=== PATIENT | male | born 1950 | race Two or more races ===

== ENCOUNTER 2016-09-21 08:10 | Outpatient (CLI) | payer MEDICARE, OTHER ==
[~2016-09-21 08:10] MED LIST: ACET650T10 PO; AMLO10TA2 PO; ASPI-605 PO; BLOO-129 IN; BRIM5DRO2 OP; HYDR-548 PO; HYDR25TA4 PO; INSU100C7 SQ; LISI-603 PO; METF10002 PO; SIMV20TA6 PO
== END 2016-09-21 23:59 | disposition home or self-care (01) ==
LOC: WOU 08:10
PROVIDERS: ATTEND Podiatrist Foot & Ankle Surgery
DX: E11.621 Type 2 diabetes mellitus with foot ulcer (principal); L97.523 Non-pressure chronic ulcer of other part of left foot with necrosis of muscle; E11.42 Type 2 diabetes mellitus with diabetic polyneuropathy; Z89.411 Acquired absence of right great toe; M20.5X1 Other deformities of toe(s) (acquired), right foot; M20.5X2 Other deformities of toe(s) (acquired), left foot; F17.200 Nicotine dependence, unspecified, uncomplicated; L03.032 Cellulitis of left toe
CPT/HCPCS: 11043; 73630; 87070; 87077; 87186; A6402 ×2; A6407

== ENCOUNTER 2016-09-22 08:58 | Outpatient (CLI) | payer MEDICARE, OTHER | END 2016-09-22 23:59 | disposition home or self-care (01) | LOC: WOU 08:58 | PROVIDERS: ATTEND Podiatrist Foot & Ankle Surgery | DX: E11.621 Type 2 diabetes mellitus with foot ulcer (principal); L97.523 Non-pressure chronic ulcer of other part of left foot with necrosis of muscle; E11.42 Type 2 diabetes mellitus with diabetic polyneuropathy; Z89.411 Acquired absence of right great toe; M20.5X1 Other deformities of toe(s) (acquired), right foot; M20.5X2 Other deformities of toe(s) (acquired), left foot; L03.032 Cellulitis of left toe | CPT/HCPCS: 11043; A6253; A6402; A6407 ==

== ENCOUNTER 2016-09-25 08:45 | Outpatient (CLI) | payer MEDICARE, OTHER | END 2016-09-25 23:59 | disposition home or self-care (01) | LOC: WOU 08:45 | PROVIDERS: ATTEND Podiatrist Foot & Ankle Surgery | DX: E11.621 Type 2 diabetes mellitus with foot ulcer (principal); L97.523 Non-pressure chronic ulcer of other part of left foot with necrosis of muscle; Z89.411 Acquired absence of right great toe; E11.42 Type 2 diabetes mellitus with diabetic polyneuropathy; F17.200 Nicotine dependence, unspecified, uncomplicated; L03.032 Cellulitis of left toe; M20.5X1 Other deformities of toe(s) (acquired), right foot; M20.5X2 Other deformities of toe(s) (acquired), left foot; Z91.19 Patient's noncompliance with other medical treatment and regimen | CPT/HCPCS: 11042; A6253; A6402; A6407 ==

== ENCOUNTER 2016-09-28 08:10 | Outpatient (CLI) | payer MEDICARE, OTHER | END 2016-09-28 23:59 | disposition home or self-care (01) | LOC: WOU 08:10 | PROVIDERS: ATTEND Podiatrist Foot & Ankle Surgery | DX: E11.621 Type 2 diabetes mellitus with foot ulcer (principal); L97.523 Non-pressure chronic ulcer of other part of left foot with necrosis of muscle; Z89.411 Acquired absence of right great toe; Z91.19 Patient's noncompliance with other medical treatment and regimen; F17.200 Nicotine dependence, unspecified, uncomplicated; L03.032 Cellulitis of left toe; M20.5X2 Other deformities of toe(s) (acquired), left foot; E11.42 Type 2 diabetes mellitus with diabetic polyneuropathy; Z79.4 Long term (current) use of insulin; Z79.84 Long term (current) use of oral hypoglycemic drugs | CPT/HCPCS: 11043; A6253; A6402 ×2; A6407 ==

== ENCOUNTER 2016-10-02 08:45 | Outpatient (CLI) | payer MEDICARE, OTHER | END 2016-10-02 23:59 | disposition home or self-care (01) | LOC: WOU 08:45 | PROVIDERS: ATTEND Podiatrist Foot & Ankle Surgery | DX: E11.621 Type 2 diabetes mellitus with foot ulcer (principal); L97.523 Non-pressure chronic ulcer of other part of left foot with necrosis of muscle; E11.42 Type 2 diabetes mellitus with diabetic polyneuropathy; Z89.411 Acquired absence of right great toe; L03.032 Cellulitis of left toe | CPT/HCPCS: 11042; 11043; A6253; A6402; A6407 ==

== ENCOUNTER 2016-10-05 08:34 | Outpatient (CLI) | payer MEDICARE, OTHER | END 2016-10-05 23:59 | disposition home or self-care (01) | LOC: WOU 08:34 | PROVIDERS: ATTEND Podiatrist Foot & Ankle Surgery | DX: E11.621 Type 2 diabetes mellitus with foot ulcer (principal); L97.523 Non-pressure chronic ulcer of other part of left foot with necrosis of muscle; E11.42 Type 2 diabetes mellitus with diabetic polyneuropathy; F17.200 Nicotine dependence, unspecified, uncomplicated; Z89.411 Acquired absence of right great toe; M20.5X2 Other deformities of toe(s) (acquired), left foot; L03.032 Cellulitis of left toe; Z79.84 Long term (current) use of oral hypoglycemic drugs; Z79.4 Long term (current) use of insulin; Z79.899 Other long term (current) drug therapy | CPT/HCPCS: 11042; A6253; A6402 ×2; A6407 ==

== ENCOUNTER 2016-10-09 08:30 | Outpatient (CLI) | payer MEDICARE, OTHER | END 2016-10-09 23:59 | disposition home or self-care (01) | LOC: WOU 08:30 | PROVIDERS: ATTEND Podiatrist Foot & Ankle Surgery | DX: E11.621 Type 2 diabetes mellitus with foot ulcer (principal); L97.523 Non-pressure chronic ulcer of other part of left foot with necrosis of muscle; E11.42 Type 2 diabetes mellitus with diabetic polyneuropathy; F17.200 Nicotine dependence, unspecified, uncomplicated; Z79.84 Long term (current) use of oral hypoglycemic drugs; Z91.19 Patient's noncompliance with other medical treatment and regimen | CPT/HCPCS: 15275; A6402; Q4131 ==

== ENCOUNTER 2016-10-12 08:59 | Outpatient (CLI) | payer MEDICARE, OTHER | END 2016-10-12 23:59 | disposition home or self-care (01) | DX: E11.621 Type 2 diabetes mellitus with foot ulcer (principal); L97.523 Non-pressure chronic ulcer of other part of left foot with necrosis of muscle; Z89.411 Acquired absence of right great toe; E11.42 Type 2 diabetes mellitus with diabetic polyneuropathy; M20.5X2 Other deformities of toe(s) (acquired), left foot; L03.032 Cellulitis of left toe; Z79.84 Long term (current) use of oral hypoglycemic drugs | CPT/HCPCS: A6402; G0463 ==

== ENCOUNTER 2016-10-16 08:29 | Outpatient (CLI) | payer MEDICARE, OTHER | END 2016-10-16 23:59 | disposition home or self-care (01) | LOC: WOU 08:29 | PROVIDERS: ATTEND Podiatrist Foot & Ankle Surgery | DX: E11.621 Type 2 diabetes mellitus with foot ulcer (principal); L97.522 Non-pressure chronic ulcer of other part of left foot with fat layer exposed; E11.42 Type 2 diabetes mellitus with diabetic polyneuropathy; F17.210 Nicotine dependence, cigarettes, uncomplicated; Z89.411 Acquired absence of right great toe; M20.5X2 Other deformities of toe(s) (acquired), left foot; Z91.19 Patient's noncompliance with other medical treatment and regimen; Z79.4 Long term (current) use of insulin; Z79.84 Long term (current) use of oral hypoglycemic drugs | CPT/HCPCS: 15275; A6402; Q4131 ==

== ENCOUNTER 2016-10-23 09:00 | Outpatient (CLI) | payer MEDICARE, OTHER | END 2016-10-23 23:59 | disposition home or self-care (01) | LOC: WOU 09:00 | PROVIDERS: ATTEND Podiatrist Foot & Ankle Surgery | DX: E11.621 Type 2 diabetes mellitus with foot ulcer (principal); L97.522 Non-pressure chronic ulcer of other part of left foot with fat layer exposed; Z89.411 Acquired absence of right great toe; L03.032 Cellulitis of left toe; Z91.19 Patient's noncompliance with other medical treatment and regimen; R60.0 Localized edema; F17.200 Nicotine dependence, unspecified, uncomplicated | CPT/HCPCS: 11042; A6402 ×2 ==

== ENCOUNTER 2016-10-26 08:10 | Outpatient (CLI) | payer MEDICARE, OTHER | END 2016-10-26 23:59 | disposition home or self-care (01) | LOC: WOU 08:10 | PROVIDERS: ATTEND Podiatrist Foot & Ankle Surgery | DX: E11.621 Type 2 diabetes mellitus with foot ulcer (principal); L97.523 Non-pressure chronic ulcer of other part of left foot with necrosis of muscle; R23.8 Other skin changes; L03.032 Cellulitis of left toe; M20.5X2 Other deformities of toe(s) (acquired), left foot; Z89.411 Acquired absence of right great toe; E11.42 Type 2 diabetes mellitus with diabetic polyneuropathy; F17.200 Nicotine dependence, unspecified, uncomplicated; Z91.19 Patient's noncompliance with other medical treatment and regimen | CPT/HCPCS: 10140; 11043; 87070-TC; 87075-TC; A6253; A6402; A6407 ==

== ENCOUNTER 2016-10-28 23:03 | Inpatient (IN) | payer MEDICARE, OTHER ==
[~2016-10-28] VITALS: Ht 157.5 cm; Wt 82.6 kg
--- NOTE | 2016-10-28 23:30 | NUR ---
[facility] FAMILY. PT AMBULATORY TO ER BED 6 C/O REDNESS & SWELLING LT FOOT WOUND SINCE 10/26/16. SEEN BY HIS ADVERTISING TRAFFIC MANAGER DR. BLACK 10/26/16, BUT DECLINED INPT ADMISSION. PT AOX3 PORTUGUESE SPEAKING. SON AT BEDSIDE TO TRANSLATE. RR EVEN AND UNLABORED. NO SOB NOTED. NAD NOTED. NO NVD AT THIS TIME. PT GOWNED AND PLACED ON MONTIOR. DR. CHEN AT BEDSIDE FOR EVAL.
--- NOTE | 2016-10-28 23:46 | NUR ---
XRAY AT BEDSIDE
[2016-10-29] MEDS ORDERED: VANCOMYCIN 1 GM in IV D5W 250 ML IV ONE ×2
[2016-10-29] MEDS ORDERED: PIPERACILLIN /TAZOBACTAM 3.375 G in IV D5W 50 ML IV ONE ×2
[2016-10-29] MEDS ORDERED: IV NS 0.9% 1,000 ML BAG IV ONE
[2016-10-29] MEDS ORDERED: IV SET PRIMARY 1 EA INFUS.SET MC ONE (00:25)
[2016-10-29] MEDS ORDERED: IV NS 0.9% 1,000 ML ONE (00:25)
[2016-10-29] MEDS ORDERED: PIPERACILLIN /TAZOBACTAM 3.375 G VIAL IV ONE ×2 (00:28→03:38)
[2016-10-29] MEDS ORDERED: IV SET PRIMARY PUMP SET 1 EA INFUS.SET MC ONE ×2 (00:28→01:03)
[2016-10-29] MEDS ORDERED: IV D5W 50 ML IV ONE ×2 (00:28→03:39)
--- NOTE | 2016-10-29 00:30 | NUR ---
URINE COLLECTED. CALLED LAB FOR SPORTS PHYSICAL THERAPIST.
[2016-10-29 00:36] LABS: ABG BASE EXCESS 0.2 mmol/L; ABG OXYGEN SATURATION 97.1 % (92.0-98.5); ABG PCO2 34.4 mmHg (35.0-45.0); ABG PH 7.457 (7.350-7.450); ABG PO2 95.1 mmHg (75.0-100.0); ABG TOTAL HEMOGLOBIN 11.1 G/dL (13.5-18.0); COHb 2.5 % (0.5-1.5); O2Hb 94.7 % (94.0-97.0); VENT MODE, BG VENOUS
[2016-10-29 00:46] LABS: BASOPHILS # (AUTO) 0.1 /CMM (0.0-0.2); BASOPHILS % (AUTO) 0.3 % (0.0-2.0); EOSINOPHILS # (AUTO) 0.3 /CMM (0.0-0.7); EOSINOPHILS % (AUTO) 1.8 % (0.0-6.0); HEMATOCRIT 31 % (39-51); LYMPHOCYTES # (AUTO) 1.5 /CMM (0.8-4.8); LYMPHOCYTES % (AUTO) 10.2 % (20.0-44.0); MEAN CORPUSCULAR HEMOGLOBIN 26 PG (26.0-33.0); MEAN CORPUSCULAR HGB CONC 33 g/dl (31.0-36.0); MEAN CORPUSCULAR VOLUME 81 fL (80-96); MONOCYTES # (AUTO) 1.2 /CMM (0.1-1.30); MONOCYTES % (AUTO) 8.2 % (2.0-12.0); NEUTROPHILS # (AUTO) 11.8 /CMM (1.8-8.9); NEUTROPHILS % (AUTO) 79.5 % (43.0-81.0); PLATELET COUNT (AUTO) 774 /CMM (150-450); RDW COEFFICIENT OF VARIATION 13.9 (11.5-15.0); WHITE BLOOD COUNT (AUTO) 14.9 K/uL (4.3-11.0)
[2016-10-29 00:48] LABS: CALCIUM, SERUM 8.9 mg/dL (8.5-10.1); CREATININE 1.2 mg/dL (0.6-1.3); POTASSIUM 4.9 mmol/L (3.5-5.1)
[2016-10-29 00:51] LABS: INR 1.02 (0.87-1.13)
[2016-10-29] MEDS ORDERED: VANCOMYCIN 500 MG VIAL ONE (01:02)
[2016-10-29] MEDS ORDERED: IV D5W 250 ML IV ONE (01:03)
[2016-10-29 01:14] LABS: APPEARANCE,URINE CLEAR (CLEAR); BILIRUBIN,URINE NEGATIVE (NEGATIVE); BLOOD, URINE NEGATIVE Ery/uL (NEGATIVE); COLOR,URINE YELLOW (YELLOW); KETONES,URINE NEGATIVE (NEGATIVE); LEUKOCYTE ESTERASE ,URINE NEGATIVE (NEGATIVE); NITRITE, URINE NEGATIVE (NEGATIVE); PH,URINE 6.5 (5.0-8.0); PROTEIN,URINE 1+ mg/dl (NEGATIVE); UGLUCOSE TRACE mg/dL (NEGATIVE); UROBILINOGEN,URINE 0.2 EU/dL (0.2)
[2016-10-29 01:22] LABS: ADD URINE CULTURE NO; BACTERIA,URINE None seen /HPF (None Seen); RBC,URINE 0-2 /HPF (0-2); WBC,URINE 0-2 /HPF (0-3)
[2016-10-29 01:23] LABS: MUCUS,URINE Rare /LPF (None Seen); SQUAMOUS EPITHELIAL CELL,UR Rare /HPF (None Seen)
--- NOTE | 2016-10-29 01:31 | NUR ---
REPORT GIVEN TO [facility] FOR RNO.
--- NOTE | 2016-10-29 01:31 | NUR ---
RECEIVED REPORT FROM ER REGARDING POSSIBLE ADMISSION, 66 YEAR OLD MALE WITH LEFT FOOT WOUND. ROOM AVAILABLE, AWAITING ARRIVAL IN UNIT.
--- NOTE | 2016-10-29 03:08 | NUR ---
PT TRASNFERED VIA GURNEY TO MS BED 206-2
[2016-10-29 03:10] VITALS: BP 130/68
--- NOTE | 2016-10-29 03:10 | NUR ---
PATIENT ARRIVED IN UNIT WITH DX OF INFECTED LEFT FOOT WOUND. ALERT AND ORIENTED X4, SPEAKS ESTONIAN, UNDERSTANDS ALBANIAN, NO SOB, NO RESPIRATORY DISTRESS, ON ROOM AIR, 02 SAT 99%, LUNG SOUNDS ARE CLEAR IN ALL [place], ABDOMEN SOFT AND NON-TENDER, ACTIVE BOWEL SOUNDS, COMPLAINING OF HEADACHE OF 4/10. LEFT HAND WITH #20 GAUGE PERIPHERAL LINE IS PATENT, RECEIVED VANCOMYCIN AND ZOSYN IN ER. CONTINENT OF BOWEL AND BLADDER, ABLE TO AMBULATE TO THE TOILET, UNSTEADY GAIT, PER PATIENT ABLE TO WALK USING CANE. BROUGHT HOME CANE. LEFT FOOT HAS 2 INFECTED WOUNDS. CLEANSE WITH NS, PAT DRY, COVERED WITH DRY DRESSING AND SECURED WITH KERLIX. LEFT FOOT IS SWOLLEN. RIGHT FOOT IS DEFORMED WELL THE TOES. SKIN ASSESSMENT PERFORMED. ORIENTED TO USE OF CALL LIGHT. NEEDS ATTENDED, CALL LIGHT WITHIN REACH.
[2016-10-29] MEDS ORDERED: ZOLPIDEM TARTRATE 5 MG TABLET PO PRN (03:30)
[2016-10-29] MEDS ORDERED: MAGNESIUM HYDROXIDE 30 ML UDC PO PRN (03:30)
[2016-10-29] MEDS ORDERED: ONDANSETRON HCL/PF 4 MG/2 ML VIAL IVP PRN (03:30)
[2016-10-29] MEDS ORDERED: DEXTROSE 50%-WATER 50 ML DISP.SYRIN IV PRN (03:30)
[2016-10-29] MEDS ORDERED: ENOXAPARIN SODIUM 40 MG/0.4 ML DISP.SYRIN SQ SCH (03:30)
[2016-10-29] MEDS ORDERED: HYDROCODONE/APAP 5/325MG 1 EACH TABLET PO PRN (03:30)
[2016-10-29] MEDS ORDERED: ENOXAPARIN SODIUM 40 MG/0.4 ML DISP.SYRIN SQ ONE (03:38)
[2016-10-29] MEDS ORDERED: SECONDARY IV SET 1 EA INFUS.SET MC ONE (03:39)
[2016-10-29] MEDS ORDERED: IV NS 0.9% 250 ML IV ONE (03:40)
[2016-10-29] MEDS ORDERED: ACETAMINOPHEN 325 MG TABLET ONE (03:45)
[2016-10-29 03:46] VITALS: BP 130/68
[2016-10-29] MEDS: ACETAMINOPHEN 325 MG TABLET PO PRN ×2 (03:48→12:28)
[2016-10-29] MEDS: PIPERACILLIN /TAZOBACTAM 3.375 G in IV D5W 50 ML IV SCH ×4 (05:26→23:56)
[2016-10-29] MEDS: BLOOD SUGAR DIAGNOSTIC 1 EACH STRIP IN SCH ×4 (06:44→22:16)
[2016-10-29] MEDS: INSULIN REGULAR, HUMAN 100 UNIT/ML 3 ML VIAL SQ PRN ×2 (06:49→12:08)
--- NOTE | 2016-10-29 06:56 | NUR ---
PATIENT IN BED, ALERT AND AWAKE, NO SOB, NO DISTRESS, VERBALIZED RELIEF FROM HEADACHE, COMPLIANT WITH MEDICATION AND ACCUCHECK, NEEDS ATTENDED, CALL LIGHT WITHIN REACH.
--- NOTE | 2016-10-29 07:30 | NUR ---
MS/RN Patient received Patient received from night shift supervisor. Denies pain, dressing to left foor remains dry and intact. Aware of how to use call light. Will continue to monitor.
[2016-10-29 07:50] VITALS: BP 134/98
[2016-10-29] MEDS: LISINOPRIL (20MG) 20 MG TABLET PO SCH (08:14)
[2016-10-29] MEDS: PANTOPRAZOLE 40 MG TABLET.DR PO SCH (08:14)
[2016-10-29] MEDS: ASPIRIN EC 81 MG TABLET.DR PO SCH (08:14)
[2016-10-29] MEDS: AMLODIPINE BESYLATE 10 MG TABLET PO SCH (08:14)
[2016-10-29] MEDS: HYDROCHLOROTHIAZIDE 25 MG TABLET PO SCH (08:15)
[2016-10-29] MEDS ORDERED: FEE PK DOSING 1 MIN EA MC ONE (08:29)
[2016-10-29] MEDS: METFORMIN 500 MG TABLET PO SCH ×2 (09:14→17:52)
--- NOTE | 2016-10-29 09:31 | NUR ---
MS/caser in Morning medication administered as per order.
[2016-10-29] MEDS: VANCOMYCIN 1 GM in IV D5W 250 ML IV SCH (12:06)
--- NOTE | 2016-10-29 14:00 | NUR ---
MS/RN S/B Isa Malcolm INSURANCE SALES PRODUCER Dressing changes ordered and carried out. MRI of left foot ordered stat, patient also to be consented for left foot debridement and possilbe partial amputation.
--- NOTE | 2016-10-29 14:30 | NUR ---
MS/RN Consents Consent forms signed although patient is only consenting to debridement not amputation. Isa made aware.
--- NOTE | 2016-10-29 14:41 | NUR ---
TEXTED DR. WADE FOR MRI APPROVAL.
--- NOTE | 2016-10-29 14:42 | NUR ---
MRI APPROVED. TECH WILL BE IN [place].PLEASE DO THE MRI CHECKLIST
[2016-10-29 16:00] VITALS: BP 107/70
--- NOTE | 2016-10-29 16:01 | NUR ---
MS/RN MRI Patient taken to MRI, check list handed to [employer].
[2016-10-29] MEDS: DAKINS QUARTER STRENGTH (0.125%) 480 ML BOTTLE TOP SCH (17:52)
--- NOTE | 2016-10-29 18:03 | NUR ---
MS/RN End note Blood sugar at 1700 - 112, no coverage needed per sliding scale. All IVAB given as ordered. Awaiting results of MRI, no needs at this time, will continue to monitor.
[2016-10-29 20:00] VITALS: BP 106/50
--- NOTE | 2016-10-29 20:00 | NUR ---
MS RN NOTE: PATIENT RESTING IN BED, NO ACUTE DISTRESS NOTED. BREATHING EVEN AND UNLABORED, NO SOB NOTED. HL TO LEFT HAND IN PLACE. DRESSING TO LEFT FOOT CLEAN AND IN PLACE. PATIENT DENIES S/S OF HYPER/HYPOGLYCEMIA. BED LOCKED AND IN LOWEST POSITION, CALL LIGHT IN REACH. WILL CONTINUE TO MONITOR.
[2016-10-29] MEDS: SIMVASTATIN 20 MG TABLET PO SCH (22:16)
--- NOTE | 2016-10-29 22:30 | NUR ---
MS RN NOTE: PATIENT BLOOD SUGAR LEVEL 138 MG/DL, PATIENT TO RECEIVE 2 UNITS OF INSULIN PER SLIDING SCALE. NO S/S OF HYPER/HYPOGLYCEMIA NOTED. SNACKS PROVIDED. WILL CONTINUE TO MONITOR.
[2016-10-29] MEDS: *INSULIN REGULAR(HUMULIN R)HUM 100 UNIT/ML VIAL SQ PRN (22:59)
--- NOTE | 2016-10-30 00:15 | NUR ---
MS RN NOTE: PATIENT NPO FOR SURGERY IN MORNING. INFORMED PATIENT THAT HE CAN NOT EAT OR DRINK SINCE HE IS SCHEDULED FOR SURGERY IN MORNING. WATER PITCHER REMOVED FROM BEDSIDE. WILL CONTINUE TO MONITOR.
[2016-10-30] MEDS: VANCOMYCIN 1 GM in IV D5W 250 ML IV SCH ×2 (02:06→14:36)
[2016-10-30] MEDS: PIPERACILLIN /TAZOBACTAM 3.375 G in IV D5W 50 ML IV SCH ×4 (06:03→23:59)
--- NOTE | 2016-10-30 06:30 | NUR ---
MS RN NOTE: PATIENT RESTING IN BED, NO ACUTE DISTRESS NOTED. BREATHING EVEN AND UNLABORED, NO SOB NOTED. HL TO LEFT HAND IN PLACE. DRESSING TO LEFT FOOT CLEAN AND IN PLACE. PATIENT BLOOD SUGAR LEVEL 212 MG/DL, NO INSULIN GIVEN SINCE PATIENT IS NPO FOR SURGERY AT 1000. PATIENT DENIES S/S OF HYPER/HYPOGLYCEMIA. BED LOCKED AND IN LOWEST POSITION, CALL LIGHT IN REACH. WILL ENDORSE TO DAY NURSE TO CONTINUE WITH PLAN OF CARE.
[2016-10-30] MEDS: BLOOD SUGAR DIAGNOSTIC 1 EACH STRIP IN SCH ×4 (06:57→22:11)
[2016-10-30 07:00] LABS: BASOPHILS # (AUTO) 0.1 /CMM (0.0-0.2); BASOPHILS % (AUTO) 0.6 % (0.0-2.0); EOSINOPHILS # (AUTO) 0.4 /CMM (0.0-0.7); EOSINOPHILS % (AUTO) 3.3 % (0.0-6.0); HEMATOCRIT 33 % (39-51); HEMOGLOBIN 10.9 g/dL (13.5-17.5); LYMPHOCYTES % (AUTO) 9.1 % (20.0-44.0); MEAN CORPUSCULAR HEMOGLOBIN 27 PG (26.0-33.0); MEAN CORPUSCULAR HGB CONC 33 g/dl (31.0-36.0); MEAN CORPUSCULAR VOLUME 82 fL (80-96); MONOCYTES # (AUTO) 0.7 /CMM (0.1-1.30); NEUTROPHILS # (AUTO) 9.2 /CMM (1.8-8.9); PLATELET COUNT (AUTO) 840 /CMM (150-450); RDW COEFFICIENT OF VARIATION 14.1 (11.5-15.0); RED BLOOD CELL COUNT(AUTO) 3.98 MIL/uL (4.5-6.0); WHITE BLOOD COUNT (AUTO) 11.3 K/uL (4.3-11.0)
[2016-10-30 07:16] LABS: CALCIUM, SERUM 9.6 mg/dL (8.5-10.1); CREATININE 1.3 mg/dL (0.6-1.3); MAGNESIUM 1.8 mg/dL (1.8-2.4); PHOSPHORUS 3.7 mg/dL (2.5-4.9); POTASSIUM 5.3 mmol/L (3.5-5.1)
[2016-10-30] MEDS: PANTOPRAZOLE 40 MG TABLET.DR PO SCH (07:30)
[2016-10-30 08:00] VITALS: BP 106/67
--- NOTE | 2016-10-30 08:50 | NUR ---
WOUND CARE CONSULT: PATIENT SEEN AND SKIN ASSESSMENT DONE. PATIENT ALERT, ORIENTED, AMBULATORY, INDEPENDENT WITH BED MOBILITY, CONTINENT, JIMY 18. SEE TODAY'S SKIN ASSESSMENT IN PCS ALONG WITH RECOMMENDATIONS. PATIENT SEEN BY KENNEDI CHAIREZ NP UNDER DR. BLACK/TEMO VALENTIN, SCHEDULED FOR SURGERY TODAY. ALL RECOMMENDATIONS DISCUSSED WITH NURSING STAFF. MD IN AGREEMENT WITH PLAN OF CARE. Addendum: 10/30/16 at 0853 by RIMA MUNOZ WNDNU Amended: Links added.
[2016-10-30] MEDS ORDERED: BUPIVACAINE MPF 0.5% W/EPI INJ 30 ML VIAL ONE (08:59)
[2016-10-30] MEDS ORDERED: LIDOCAINE HCL/PF 1% 30 ML SDV ONE (08:59)
[2016-10-30] MEDS: ENOXAPARIN SODIUM 40 MG/0.4 ML DISP.SYRIN SQ SCH (09:00)
[2016-10-30] MEDS: AMLODIPINE BESYLATE 10 MG TABLET PO SCH (09:00)
[2016-10-30] MEDS: HYDROCHLOROTHIAZIDE 25 MG TABLET PO SCH (09:00)
[2016-10-30] MEDS: METFORMIN 500 MG TABLET PO SCH ×2 (09:00→17:05)
[2016-10-30] MEDS: LISINOPRIL (20MG) 20 MG TABLET PO SCH (09:00)
[2016-10-30] MEDS: ASPIRIN EC 81 MG TABLET.DR PO SCH (09:00)
[2016-10-30] MEDS: DAKINS QUARTER STRENGTH (0.125%) 480 ML BOTTLE TOP SCH ×2 (09:00→17:14)
[2016-10-30] MEDS ORDERED: PANTOPRAZOLE 40 MG TABLET.DR PO SCH (11:00)
[2016-10-30] MEDS: INSULIN REGULAR, HUMAN 100 UNIT/ML 3 ML VIAL SQ PRN ×2 (13:05→17:08)
[2016-10-30] MEDS: ACETAMINOPHEN 325 MG TABLET PO PRN (14:41)
[2016-10-30 16:00] VITALS: BP 119/65
[2016-10-30] MEDS: LACTOBACILLUS RHAMNOSUS GG 1 EACH CAP.SPRINK PO SCH (17:05)
--- NOTE | 2016-10-30 19:20 | NUR ---
MS RN NOTE: PATIENT RESTING IN BED, NO ACUTE DISTRESS NOTED. BREATHING EVEN AND UNLABORED, NO SOB NOTED. HL TO LEFT HAND IN PLACE. DRESSING TO LEFT FOOT CLEAN AND IN PLACE. PATIENT DENIES S/S OF HYPER/HYPOGLYCEMIA. BED LOCKED AND IN LOWEST POSITION, CALL LIGHT IN REACH. ENDORSED TO NEXT SHIFT FOR CONTINUITY OF CARE
[2016-10-30] MEDS: SIMVASTATIN 20 MG TABLET PO SCH (22:11)
[2016-10-30] MEDS: *INSULIN REGULAR(HUMULIN R)HUM 100 UNIT/ML VIAL SQ PRN (22:19)
--- NOTE | 2016-10-30 22:30 | NUR ---
MS RN NOTE: PATIENT BLOOD SUGAR LEVEL 190 MG/DL, PATIENT TO RECEIVE 3 UNITS OF INSULIN PER SLIDING SCALE. NO S/S OF HYPER/HYPOGLYCEMIA NOTED. SNACKS PROVIDED. WILL CONTINUE TO MONITOR.
[2016-10-31] MEDS: VANCOMYCIN 1 GM in IV D5W 250 ML IV SCH ×2 (01:11→12:57)
[2016-10-31] MEDS: PIPERACILLIN /TAZOBACTAM 3.375 G in IV D5W 50 ML IV SCH ×3 (05:53→17:35)
--- NOTE | 2016-10-31 06:30 | NUR ---
MS RN NOTE: PATIENT RESTING IN BED, NO ACUTE DISTRESS NOTED. BREATHING EVEN AND UNLABORED, NO SOB NOTED. HL TO LEFT HAND IN PLACE. DRESSING TO LEFT FOOT CLEAN AND IN PLACE. PATIENT BLOOD SUGAR LEVEL 262 MG/DL, PATIENT TO RECEIVE 12 UNITS OF INSULIN PER SLIDING SCALE. PATIENT DENIES S/S OF HYPER/HYPOGLYCEMIA. BED LOCKED AND IN LOWEST POSITION, CALL LIGHT IN REACH. WILL ENDORSE TO DAY NURSE TO CONTINUE WITH PLAN OF CARE.
[2016-10-31] MEDS: BLOOD SUGAR DIAGNOSTIC 1 EACH STRIP IN SCH ×4 (06:37→22:00)
[2016-10-31] MEDS: INSULIN REGULAR, HUMAN 100 UNIT/ML 3 ML VIAL SQ PRN ×3 (06:38→17:17)
[2016-10-31 07:22] LABS: CREATININE 1.3 mg/dL (0.6-1.3); POTASSIUM 4.7 mmol/L (3.5-5.1)
[2016-10-31 08:00] VITALS: BP 112/58
[2016-10-31] MEDS: LACTOBACILLUS RHAMNOSUS GG 1 EACH CAP.SPRINK PO SCH ×2 (08:43→17:08)
[2016-10-31] MEDS: METFORMIN 500 MG TABLET PO SCH ×2 (08:44→17:09)
[2016-10-31] MEDS: PANTOPRAZOLE 40 MG TABLET.DR PO SCH (08:44)
[2016-10-31] MEDS: ASPIRIN EC 81 MG TABLET.DR PO SCH (08:44)
[2016-10-31] MEDS: AMLODIPINE BESYLATE 10 MG TABLET PO SCH (08:45)
[2016-10-31] MEDS: ENOXAPARIN SODIUM 40 MG/0.4 ML DISP.SYRIN SQ SCH (08:51)
[2016-10-31] MEDS: DAKINS QUARTER STRENGTH (0.125%) 480 ML BOTTLE TOP SCH ×2 (08:52→17:45)
[2016-10-31] MEDS: HYDROCHLOROTHIAZIDE 25 MG TABLET PO SCH (09:00)
[2016-10-31] MEDS: LISINOPRIL (20MG) 20 MG TABLET PO SCH (11:28)
[2016-10-31 16:00] VITALS: BP 114/62
[2016-10-31] MEDS ORDERED: SECONDARY IV SET 1 EA INFUS.SET MC ONE (17:34)
--- NOTE | 2016-10-31 19:50 | NUR ---
MSRN FULLY AWAKE, COOPERATIVE. NO NEEDS FOR NOW. FOOT DRESSING DRY AND INTACT. ELEVATED ON PILLOWS. KEPT COMFORTABLE TO CONTINUE
--- NOTE | 2016-10-31 19:56 | NUR ---
MS RN NOTE: PATIENT RESTING IN BED, NO ACUTE DISTRESS NOTED. BREATHING EVEN AND UNLABORED, NO SOB NOTED. HL RIGHT FA IN PLACE NO REDNESS OR INFILTRATION NOTED. DRESSING TO LEFT FOOT CLEAN AND IN PLACE. PATIENT DENIES S/S OF HYPER/HYPOGLYCEMIA. BED LOCKED AND IN LOWEST POSITION, CALL LIGHT IN REACH. ENDORSED TO NEXT SHIFT FOR CONTINUITY OF CARE
[2016-10-31 20:00] VITALS: BP 104/63
[2016-10-31] MEDS ORDERED: INSULIN DETEMIR 100 UNIT/ML CARTRIDGE SQ SCH (22:00)
--- NOTE | 2016-10-31 22:05 | NUR ---
MSRN BS WAS 264 COVERED WITH LEVEMIR AND REGULAR INSULIN S/S ORDERED. ATE SNACKS EARLIER.
[2016-10-31] MEDS: SIMVASTATIN 20 MG TABLET PO SCH (22:55)
[2016-10-31] MEDS: *INSULIN REGULAR(HUMULIN R)HUM 100 UNIT/ML VIAL SQ PRN (23:04)
--- NOTE | 2016-11-01 00:10 | NUR ---
MSRN UPSET, ROOM TOO COLD PATIENT STATED. OFFERED WARM BLANKET, REFUSED, OFFERED TO BE MOVED TO FIRST BED REFUSED. REFUSED TO ACCEPT ANY EXPLANATION, BECOMING UNCOOPERATIVE.
[2016-11-01] MEDS: PIPERACILLIN /TAZOBACTAM 3.375 G in IV D5W 50 ML IV SCH ×5 (00:22→23:51)
[2016-11-01] MEDS ORDERED: SECONDARY IV SET 1 EA INFUS.SET MC ONE (00:25)
--- NOTE | 2016-11-01 01:05 | NUR ---
MSRN INFORMED HOUSESUPERVISOR REGARDING PATIENTS' CONCERNS, OFFERED HEATER, PATIENT REFUSED. WANTED TO BE LEFT ALONE.
[2016-11-01] MEDS: VANCOMYCIN 1 GM in IV D5W 250 ML IV SCH ×2 (01:14→11:49)
[2016-11-01 07:10] LABS: CALCIUM, SERUM 8.9 mg/dL (8.5-10.1); CREATININE 1.3 mg/dL (0.6-1.3); POTASSIUM 4.7 mmol/L (3.5-5.1)
--- NOTE | 2016-11-01 07:23 | NUR ---
MSRN LABS DRAWN, NO NEEDS MADE.
[2016-11-01] MEDS: BLOOD SUGAR DIAGNOSTIC 1 EACH STRIP IN SCH ×4 (07:40→21:28)
[2016-11-01] MEDS: INSULIN REGULAR, HUMAN 100 UNIT/ML 3 ML VIAL SQ PRN ×2 (07:42→12:09)
--- NOTE | 2016-11-01 07:52 | NUR ---
MS/RN Patient received Patient received from manager shift, no needs at this time. Denies pain, dressing to left foot dry and intact. Call light within reach, will continue to monitor.
[2016-11-01] MEDS: PANTOPRAZOLE 40 MG TABLET.DR PO SCH (08:33)
[2016-11-01] MEDS: LACTOBACILLUS RHAMNOSUS GG 1 EACH CAP.SPRINK PO SCH ×2 (08:33→17:53)
[2016-11-01] MEDS: LISINOPRIL (20MG) 20 MG TABLET PO SCH (08:34)
[2016-11-01] MEDS: AMLODIPINE BESYLATE 10 MG TABLET PO SCH (08:34)
[2016-11-01] MEDS: METFORMIN 500 MG TABLET PO SCH ×2 (08:34→17:53)
[2016-11-01] MEDS: ASPIRIN EC 81 MG TABLET.DR PO SCH (08:34)
[2016-11-01] MEDS: HYDROCHLOROTHIAZIDE 25 MG TABLET PO SCH (08:34)
[2016-11-01 08:35] VITALS: BP 125/69
[2016-11-01] MEDS: DAKINS QUARTER STRENGTH (0.125%) 480 ML BOTTLE TOP SCH ×2 (08:35→17:00)
[2016-11-01] MEDS: ENOXAPARIN SODIUM 40 MG/0.4 ML DISP.SYRIN SQ SCH (08:39)
--- NOTE | 2016-11-01 09:00 | NUR ---
MS/patient accounting representative Morning medication administered as ordered.
--- NOTE | 2016-11-01 12:00 | NUR ---
MS/RN S/B Wound Seen by Isa Malcolm NP, will be seen by MD later today, for possible surgery tomorrow.
--- NOTE | 2016-11-01 12:29 | NUR ---
MS/RN Blood sugar Blood sugar at noon 254, insulin coverage given as per sliding scale.
[2016-11-01] MEDS ORDERED: ANESTHESIA TRAY IN PYXIS 1 EA TRAY MC ONE (14:40)
--- NOTE | 2016-11-01 14:49 | NUR ---
MS/RN Consent Consent obtained from patient for debridement of left foot wound tomorrow. Aware of need to be NPO from midnight, wound vac order placed and central supply called to inform. Will deliver to floor later today (per Anmol)
[2016-11-01] MEDS: *INSULIN REGULAR(HUMULIN R)HUM 100 UNIT/ML VIAL SQ PRN ×2 (18:00→21:35)
[2016-11-01 19:00] VITALS: BP 128/71
--- NOTE | 2016-11-01 19:30 | NUR ---
RN NOTE; RECEIVED PT IN BED AWAKE AND ALERT. BREATHING EVENLY. NO SOB. NO DISTRESS. SKIN WARM AND DRY. DRESSING ON L LEG CDI, NO C/O PAIN OR DISCOMFORT. NEEDS ATTENDED. BED LOW LOCKED. SRX2. CALL LIGHT WITHIN REACH. WILL CONT TO MONITOR
--- NOTE | 2016-11-01 19:57 | NUR ---
MS/RN End note Patient remains without any needs, no pain medication requested. IVAB infused as ordered, no reaction noted around heplock insertion site. Dressing to foot dry and intact. Consent forms in chart, all signed by patient. Call light within reach, will endorse to shift commander.
[2016-11-01 20:00] VITALS: BP 128/71
[2016-11-01] MEDS: SIMVASTATIN 20 MG TABLET PO SCH (21:28)
[2016-11-01] MEDS ORDERED: INSULIN DETEMIR 100 UNIT/ML CARTRIDGE SQ SCH (22:00)
[2016-11-02] VITALS (14 sets, daily range): BP systolic 120–136; BP diastolic 63–72
[2016-11-02] MEDS: VANCOMYCIN 1 GM in IV D5W 250 ML IV SCH ×2 (00:35→13:40)
[2016-11-02] MEDS: PIPERACILLIN /TAZOBACTAM 3.375 G in IV D5W 50 ML IV SCH ×3 (05:38→17:07)
--- NOTE | 2016-11-02 06:59 | NUR ---
RN NOTE; PT AWAKE AND ALERT. BREATHING EVENLY. NO SOB. NO C/O PAIN OR DISCOMFORT. OR STAFF AT THE BED SIDE TO PICK THE PT TO THE OR. WOUND VAC ALREADY DELIVERED TO THE OR. NEEDS ATTENDED. WILL ENDORSE TO AM SHIFT FOR RON,
[2016-11-02 07:01] LABS: CALCIUM, SERUM 8.9 mg/dL (8.5-10.1); CREATININE 1.1 mg/dL (0.6-1.3); POTASSIUM 4.5 mmol/L (3.5-5.1)
[2016-11-02] MEDS: BLOOD SUGAR DIAGNOSTIC 1 EACH STRIP IN SCH ×4 (07:03→21:27)
[2016-11-02] MEDS ORDERED: MIDAZOLAM HCL 2 MG/2ML VIAL ONE (07:19)
[2016-11-02] MEDS ORDERED: FENTANYL PF 100MCG/2ML AMPUL ONE (07:19)
[2016-11-02] MEDS: PANTOPRAZOLE 40 MG TABLET.DR PO SCH (07:30)
[2016-11-02] MEDS: DAKINS QUARTER STRENGTH (0.125%) 480 ML BOTTLE TOP SCH (09:00)
[2016-11-02] MEDS: ENOXAPARIN SODIUM 40 MG/0.4 ML DISP.SYRIN SQ SCH (09:00)
--- NOTE | 2016-11-02 09:00 | NUR ---
MS RN NOTES PATIENT RETURNED FROM OR IN STABLE CONDITION. ALERT, ORIENTED X3 NO SOB OR ACUTE DISTRESS NOTED. REPORTS NO PAIN. LOVENOX HELD DUE TO PATIENT BEING S/P . PATIENT WITH WOUND VAC PATENT INTACT AT 125. WILL CONTINUE TO MONITOR CLOSELY. IV INTACT PATENT.
[2016-11-02] MEDS: LACTOBACILLUS RHAMNOSUS GG 1 EACH CAP.SPRINK PO SCH ×2 (09:03→17:01)
[2016-11-02] MEDS: ASPIRIN EC 81 MG TABLET.DR PO SCH (09:03)
[2016-11-02] MEDS: LISINOPRIL (20MG) 20 MG TABLET PO SCH (09:04)
[2016-11-02] MEDS: HYDROCHLOROTHIAZIDE 25 MG TABLET PO SCH (09:04)
[2016-11-02] MEDS: METFORMIN 500 MG TABLET PO SCH ×2 (09:04→17:01)
[2016-11-02] MEDS: AMLODIPINE BESYLATE 10 MG TABLET PO SCH (09:04)
[2016-11-02] MEDS ORDERED: BUPIVACAINE 0.5 % PF 150 MG/30 ML VIAL ONE (09:35)
--- NOTE | 2016-11-02 12:00 | NUR ---
MS RN NOTES PATIENT SEEN AND EVALUATED BY ADRYAN MAYA ORDERS NOTED AND CARRIED OUT.
[2016-11-02] MEDS: INSULIN REGULAR, HUMAN 100 UNIT/ML 3 ML VIAL SQ PRN ×2 (12:01→17:09)
[2016-11-02] MEDS ORDERED: ANESTHESIA TRAY IN PYXIS 1 EA TRAY MC ONE (13:20)
--- NOTE | 2016-11-02 13:28 | NUR ---
TELEPHONE ASSEMBLER PER GARCIA IN CASE MANAGEMENT, PATIENT WANTS TO GO HOME UPON DISCHARGE. [facility] AT [facility] NOTIFIED THAT PATIENT WILL NEED A HOME VAC UNIT WITH SUPPLIES UPON DISCHARGE FROM THE HOSPITAL. HE WILL ARRANGE FOR THE HOME VAC. VAC THERAPY ORDERS CLARIFIED AND DISCUSSED WITH NURSING.
--- NOTE | 2016-11-02 19:08 | NUR ---
MS RN NOTES PATIENT IN BED RESTING NO SOB OR ACUTE DISTRESS NOTED. ALL DUE MEDICATIONS GIVEN. WOUND VAC INTACT PATENT ON. ALL NEEDS MET WILL ENDORSE TO PM SHIFT RON.
--- NOTE | 2016-11-02 19:25 | NUR ---
RN NOTE; RECEIVED PT SITTING ON THE CHAIR W/ FAMILY AT THE BED SIDE. BREATHING EVENLY. NO SOB. NO DISTRESS. DRESSING AND WOUND VAC ON LLE IN PLACE HOWEVER W/ NO DRAINAGE AT THIS TIME. NO C.O PAIN OR DISCOMFORT, NEEDS ATTENDED. CALL LIGHT WITHIN REACH. WILL CONT TO MONITOR
[2016-11-02] MEDS ORDERED: HYDROCODONE/APAP 5/325MG 1 EACH TABLET PO PRN (19:30)
[2016-11-02] MEDS ORDERED: DEXTROSE 50%-WATER 50 ML DISP.SYRIN IV PRN (19:30)
[2016-11-02] MEDS ORDERED: MAGNESIUM HYDROXIDE 30 ML UDC PO PRN (19:30)
[2016-11-02] MEDS ORDERED: ONDANSETRON HCL/PF 4 MG/2 ML VIAL IVP PRN (19:30)
[2016-11-02] MEDS: CEFTRIAXONE 1 G in IV D5W 50 ML IV SCH (20:43)
[2016-11-02] MEDS ORDERED: SECONDARY IV SET 1 EA INFUS.SET MC ONE (20:45)
[2016-11-02] MEDS: SIMVASTATIN 20 MG TABLET PO SCH (21:27)
[2016-11-02] MEDS: *INSULIN REGULAR(HUMULIN R)HUM 100 UNIT/ML VIAL SQ PRN (21:34)
[2016-11-02] MEDS: INSULIN DETEMIR 100 UNIT/ML CARTRIDGE SQ SCH (21:35)
[2016-11-02] MEDS ORDERED: ZOLPIDEM TARTRATE 5 MG TABLET PO PRN (22:00)
--- NOTE | 2016-11-03 06:41 | NUR ---
RN NOTE ; PT IN BED AWAKE AND ALERT. BREATHING EVENLY. NO SOB. NO DISTRESS. NO ACUTE CHANGES OVER NIGHT . DRESSING AND WOUND VAC IN PLACE. WOUND VAC DRAINING SCANT AMOUNT OF SEROSANGUINEOUS DRAINAGE. NO C/O PAIN OR DISCOMFORT. NEEDS ATTENDED. BED LOW LOCKED. CALL LIGHT WITHIN REACH. WILL CONT TO MONITOR AND WILL ENDORSE TO AM SHIFT FOR RON.
[2016-11-03] MEDS: BLOOD SUGAR DIAGNOSTIC 1 EACH STRIP IN SCH ×4 (06:53→21:31)
[2016-11-03] MEDS: INSULIN REGULAR, HUMAN 100 UNIT/ML 3 ML VIAL SQ PRN ×3 (06:58→17:17)
[2016-11-03] MEDS: PANTOPRAZOLE 40 MG TABLET.DR PO SCH ×2 (06:59→09:04)
[2016-11-03 08:00] VITALS: BP 127/67
--- NOTE | 2016-11-03 08:00 | NUR ---
MS RN NOTES PATIENT IN BED. ALERT, ORIENTED X3 NO SOB OR ACUTE DISTRESS NOTED. REPORTS NO PAIN. PATIENT WITH WOUND VAC PATENT INTACT AT -125. IV INTACT PATENT. CALL LIGHT WITHIN REACH. BED IN LOW LOCKED POSITIONAL. WILL CONTINUE TO MONITOR CLOSELY.
[2016-11-03] MEDS: LACTOBACILLUS RHAMNOSUS GG 1 EACH CAP.SPRINK PO SCH ×2 (09:03→17:11)
[2016-11-03] MEDS: ASPIRIN EC 81 MG TABLET.DR PO SCH (09:03)
[2016-11-03] MEDS: AMLODIPINE BESYLATE 10 MG TABLET PO SCH (09:03)
[2016-11-03] MEDS: LISINOPRIL (20MG) 20 MG TABLET PO SCH (09:04)
[2016-11-03] MEDS: METFORMIN 500 MG TABLET PO SCH ×2 (09:04→17:11)
[2016-11-03] MEDS: HYDROCHLOROTHIAZIDE 25 MG TABLET PO SCH (09:05)
[2016-11-03 16:00] VITALS: BP 101/52
--- NOTE | 2016-11-03 19:22 | NUR ---
MS RN NOTES PATIENT IN BED RESTING NO SOB OR ACUTE DISTRESS NOTED. ALL DUE MEDICATIONS GIVEN ALL NEEDS MET. WILL ENDORSE TO PM SHIFT RON.
[2016-11-03] MEDS: CEFTRIAXONE 1 G in IV D5W 50 ML IV SCH (19:40)
--- NOTE | 2016-11-03 19:40 | NUR ---
MS RN NOTE RECEIVED PATIENT FROM DAY SHIFT, PATIENT IS ALERT AND ORIENTEDX4, DENIES PAIN OR RESPIRATORY DISTRESS AT THIS TIME. IV ON RIGHT FA IS PATENT AND INTACT, HL ONLY. LEFT FOOT WOUND VAC WITH SUCTION SETTING 125MM/HG, NOT MUCH DRAINAGE PRESENT IN A CANISTER. SRX2, BED IN LOW POSITION, CALL LIGHT WITHIN REACH, WILL CONTINUE TO MONITOR PATIENT.
[2016-11-03 20:00] VITALS: BP 102/65
[2016-11-03] MEDS: SIMVASTATIN 20 MG TABLET PO SCH (21:29)
[2016-11-03] MEDS: INSULIN DETEMIR 100 UNIT/ML CARTRIDGE SQ SCH (21:32)
[2016-11-03] MEDS: *INSULIN REGULAR(HUMULIN R)HUM 100 UNIT/ML VIAL SQ PRN (21:34)
[2016-11-04] MEDS: BLOOD SUGAR DIAGNOSTIC 1 EACH STRIP IN SCH ×4 (06:12→21:31)
[2016-11-04] MEDS: INSULIN REGULAR, HUMAN 100 UNIT/ML 3 ML VIAL SQ PRN ×3 (06:15→18:00)
--- NOTE | 2016-11-04 07:01 | NUR ---
MS RN NOTE PATIENT IS RESTING IN CHAIR COMFORTABLY, DENIES RESPIRATORY DISTRESS OR PAIN AT THIS TIME. WOUND VAC DRESSING ON LLE IS PATENT, I/D, VERY LITTLE DRAINAGE NOTED. IV ON RIGHT FA IS PATENT AND INTACT, HL ONLY. WILL ENDORSE TO DAY SHIFT NURSE FOR RON.
--- NOTE | 2016-11-04 07:15 | NUR ---
MS RN INITIAL NOTES RECEIVED PATIENT IN BED, AWAKE, A/O X4. BREATHING EVEN AND NON LABORED, ON ROOM AIR, NO SOB NOTED. WOUND LEFT FOOT, DRESSING INTACT, WOUND VAC IN PLACE WITH SETTING 125mm/Hg CONTINUOUS SUCTION. APPEARS COMFORTABLE IN BED, NO C/O PAIN AT THIS TIME. CALL LIGHT WITHIN REACH. WILL CONT TO MONITOR.
[2016-11-04 08:00] VITALS: BP 111/63
[2016-11-04 08:30] VITALS: BP 111/63
[2016-11-04] MEDS: ASPIRIN EC 81 MG TABLET.DR PO SCH (08:40)
[2016-11-04] MEDS: LISINOPRIL (20MG) 20 MG TABLET PO SCH (08:40)
[2016-11-04] MEDS: AMLODIPINE BESYLATE 10 MG TABLET PO SCH (08:41)
[2016-11-04] MEDS: LACTOBACILLUS RHAMNOSUS GG 1 EACH CAP.SPRINK PO SCH ×2 (08:41→18:00)
[2016-11-04] MEDS: METFORMIN 500 MG TABLET PO SCH ×2 (08:41→18:00)
[2016-11-04] MEDS: HYDROCHLOROTHIAZIDE 25 MG TABLET PO SCH (08:41)
--- NOTE | 2016-11-04 12:00 | NUR ---
BS 269MG/DL. GIVEN 12 UNITS INSULIN REGULAR SQ PER [employer] COVERAGE.
--- NOTE | 2016-11-04 14:10 | NUR ---
PATIENT IS SEEN BY BRITTANY TODAY, POSSIBLE DC SUNDAY. FOR MIDLINE INSERTION. PATIENT TO CONT ANTIBIOTIC IV AT HOME WITH HOME HEALTH TO FOLLOW, WOUND VAC TO BE DELIVERED ON SUNDAY TO BE ARRANGED BY CM. PATIENT IS AWARE.
[2016-11-04 16:00] VITALS: BP 110/61
--- NOTE | 2016-11-04 16:35 | NUR ---
MIDLINE INSERTED BY DR. XAVI LIM, PATIENT TOLERATED WELL. LEFT UPPER MIDLINE PATENT AND INTACT. Addendum: 11/04/16 at 1701 by MIRIAM PADILLA RN CLARIFICATION OF ABOVE NOTES: MIDLINE IN YORDY
--- NOTE | 2016-11-04 19:30 | NUR ---
MS RN OPENING NOTES: PATIENT IN BED, AOX4, ON ROOM AIR, BREATHING EVEN AND UNLABORED. APPEARS CALM AND IN NO DISTRESS, DENIES PAIN AT THIS TIME. PATIENT HAS PIV ACCESS OVER RFA G 20 AND YORDY MIDLINE, BOTH INTACT AND PATENT TO FLUSH. PATIENT REQUESTING TO HAVE RFA PIV ACCESS TAKEN OFF IT IS BOTHERSOME. PATIENT HAS L FOOT WOUND DRESSING, CLEAN AND INTACT, WITH WOUND VAC IN PLACE, AT 125 MMHG. NOTED ABOUT 5 ML SEROSANGUINEOUS DRAINAGE IN COLLECTION CHAMBER. PROVIDED FOR COMFORT AND SAFETY. WILL CONT TO MONITOR.
--- NOTE | 2016-11-04 19:44 | NUR ---
MS RN CLOSING NOTES PATIENT IN BED, NOT IN DISTRESS. BLOOD SUGAR MONITORED, NO S/S OF HYPO/HYPERGLYCEMIA NOTED. NWB LLE, PATIENT IS AWARE. WOUND LEFT FOOT DRESSING INTACT, WOUND VAC WITH THE SAME SETTINGS 125mm/HG CONTINUOUS SUCTION, WITH SEROSANGUINEOUS DRAINAGE 5ML. PER BEATRIZ, PATIENT IS CLEARED TO GO HOME WITH HOME HEALTH FOR WOUND VAC. AND IV ANTIBIOTIC FOR 6 WEEKS. CM WILL ARRANGE HOME HEALTH AND HOME WOUND VAC. ENDORSED TO WINDER OPERATOR RN FOR CONTINUITY OF CARE.
[2016-11-04 20:00] VITALS: BP 120/61
[2016-11-04] MEDS: CEFTRIAXONE 1 G in IV D5W 50 ML IV SCH (20:20)
[2016-11-04] MEDS ORDERED: IV NS 0.9% 250 ML IV ONE (20:48)
[2016-11-04] MEDS: SIMVASTATIN 20 MG TABLET PO SCH (21:31)
[2016-11-04] MEDS: INSULIN DETEMIR 100 UNIT/ML CARTRIDGE SQ SCH (21:38)
[2016-11-04] MEDS: *INSULIN REGULAR(HUMULIN R)HUM 100 UNIT/ML VIAL SQ PRN (21:42)
[2016-11-04 22:00] VITALS: BP 120/61
--- NOTE | 2016-11-04 22:10 | NUR ---
RN NOTES: PATIENT'S BLOOD SUGAR CHECKED AT 150 MG/DL. ADMINISTERED SCHEDULED LEVEMIR 22 UNITS + REGULAR INSULIN 2 UNITS AT THIS TIME. LIGHT SNACK OFFERED. WILL CONT TO MONITOR.
[2016-11-05 07:03] LABS: BASOPHILS % (AUTO) 0.4 % (0.0-2.0); EOSINOPHILS # (AUTO) 0.3 /CMM (0.0-0.7); EOSINOPHILS % (AUTO) 2.9 % (0.0-6.0); HEMATOCRIT 32 % (39-51); HEMOGLOBIN 10.7 g/dL (13.5-17.5); LYMPHOCYTES # (AUTO) 2.2 /CMM (0.8-4.8); LYMPHOCYTES % (AUTO) 20.9 % (20.0-44.0); MEAN CORPUSCULAR HEMOGLOBIN 27 PG (26.0-33.0); MEAN CORPUSCULAR HGB CONC 34 g/dl (31.0-36.0); MEAN CORPUSCULAR VOLUME 81 fL (80-96); MONOCYTES # (AUTO) 0.6 /CMM (0.1-1.30); MONOCYTES % (AUTO) 5.8 % (2.0-12.0); NEUTROPHILS # (AUTO) 7.3 /CMM (1.8-8.9); RDW COEFFICIENT OF VARIATION 13.8 (11.5-15.0); RED BLOOD CELL COUNT(AUTO) 3.93 MIL/uL (4.5-6.0); WHITE BLOOD COUNT (AUTO) 10.4 K/uL (4.3-11.0)
--- NOTE | 2016-11-05 07:07 | NUR ---
MS RN CLOSING NOTES: PATIENT IN BED, AOX4, ON ROOM AIR, BREATHING EVEN AND UNLABORED. APPEARS CALM AND IN NO DISTRESS. BLOOD SUGAR CHECKED AT 168 MG/DL, ADMINISTERED 4 UNITS REGULAR INSULIN. YORDY MIDLINE ACCESS INTACT AND PATENT TO FLUSH. LEFT FOOT WITH INTACT DRESSING, WITH WOUND VAC ON CONT SUCTION AT 125 MMHG. WILL ENDORSE TO AM RN FOR RON.
--- NOTE | 2016-11-05 07:20 | NUR ---
MS CARI OPENING RECEIVED PATIENT A/OX4 DENIES PAIN AT THIS TIME STATES MEDICATION TOOK PAIN AWAY. NO SOB DIFFICULTY BREATHING AT THIS TIME. SITTING IN CHAIR WITH LEFT LEG ELEVATED. PT WOUND VAC IN PLACE 125MMHG WITH LESS THAN 25ML IN CANISTER. PT STATES NO NEEDS AT THIS TIME AND APPEARS STABLE. WILL ROUND Q2H OR LESS PER NEEDS Addendum: 11/05/16 at 1130 by ZORAIDA CARMEN RN PATIENT DID NOT GET ANY PAIN MEDICATION. PATIENT IS DENYING PAIN AND NOT REQUESTING PAIN MEDICATIONS
[2016-11-05] MEDS: BLOOD SUGAR DIAGNOSTIC 1 EACH STRIP IN SCH ×4 (07:30→21:01)
[2016-11-05 07:31] LABS: PLATELET COUNT (AUTO) 989 /CMM (150-450)
[2016-11-05] MEDS: INSULIN REGULAR, HUMAN 100 UNIT/ML 3 ML VIAL SQ PRN (07:37)
[2016-11-05 08:00] VITALS: BP 124/73
[2016-11-05] MEDS: METFORMIN 500 MG TABLET PO SCH ×2 (08:30→16:49)
[2016-11-05] MEDS: PANTOPRAZOLE 40 MG TABLET.DR PO SCH (08:30)
[2016-11-05] MEDS: LACTOBACILLUS RHAMNOSUS GG 1 EACH CAP.SPRINK PO SCH ×2 (08:31→16:49)
[2016-11-05] MEDS: HYDROCHLOROTHIAZIDE 25 MG TABLET PO SCH (08:31)
[2016-11-05] MEDS: AMLODIPINE BESYLATE 10 MG TABLET PO SCH (08:31)
[2016-11-05] MEDS: LISINOPRIL (20MG) 20 MG TABLET PO SCH (08:31)
[2016-11-05] MEDS: ASPIRIN EC 81 MG TABLET.DR PO SCH (08:31)
--- NOTE | 2016-11-05 08:34 | NUR ---
MS RN NOTES ACCU CHECK WAS COMPLETED BY RN THIS AM FOR 730 SCHEDULED
--- NOTE | 2016-11-05 08:50 | NUR ---
MS RN NOTES TELEPHONE SWITCHBOARD OPERATOR ADRYAN AWARE OF CRITICAL LAB PLATELETS. NO NEW ORDERS AT THIS TIME
[2016-11-05] MEDS: *INSULIN REGULAR(HUMULIN R)HUM 100 UNIT/ML VIAL SQ PRN ×3 (12:09→21:05)
[2016-11-05 16:00] VITALS: BP 96/52
--- NOTE | 2016-11-05 18:35 | NUR ---
MS RN CLOSING PT STABLE NO COMPLICATIONS, NO CHANGES THROUGHOUT DAY. PT STATES NO NEEDS AT THIS TIME AND FAMILY AT BEDSIDE. PT LEFT WITH CALL LIGHT IN REACH, BED LOWERED AND LOCKED, RAILS UPX3 FOR SAFETY AND WILL ENDORSE CARE TO RN Addendum: 11/05/16 at 1836 by ZORAIDA CARMEN RN WOUND VAC IN PLACE AND SUCTION ORDERD. DRESSING CLEAN AND DRY INTACT
--- NOTE | 2016-11-05 19:30 | NUR ---
MS RN OPENING NOTES: PATIENT SITTING ON BED, AOX4, ON ROOM AIR, BREATHING EVEN AND UNLABORED. FAMILY AT BEDSIDE. YORDY MIDLINE INTACT AND PATENT TO FLUSH. PATIENT HAS LLE DRESSING, CLEAN AND INTACT, CONNECTED TO WOUND VAC AT 125 MMHG, CONT SUCTION. PROVIDED FOR COMFORT AND SAFETY. WILL CONT TO MONITOR.
[2016-11-05] MEDS: CEFTRIAXONE 1 G in IV D5W 50 ML IV SCH (19:46)
[2016-11-05 20:00] VITALS: BP 120/65
[2016-11-05 20:39] VITALS: BP 120/65
[2016-11-05] MEDS: SIMVASTATIN 20 MG TABLET PO SCH (21:02)
[2016-11-05] MEDS: INSULIN DETEMIR 100 UNIT/ML CARTRIDGE SQ SCH (21:03)
[2016-11-05 22:00] VITALS: BP 120/65
--- NOTE | 2016-11-05 22:10 | NUR ---
RN NOTES: PT'S BS CHECKED AT 180 MG/DL, ADMINISTERED SCHEDULED 22 UNITS LEVEMIR + 3 UNITS REGULAR INSULIN. LIGHT SNACK GIVEN. WILL CONT TO MONITOR.
--- NOTE | 2016-11-06 06:30 | NUR ---
MS RN CLOSING NOTES: PATIENT IN BED, AOX4, ON ROOM AIR, BREATHING EVEN AND UNLABORED. YORDY MIDLINE INTACT AND PATENT TO FLUSH. BLOOD SUGAR CHECKED AT 144 MG/DL, ADMINISTERED 2 UNITS REGULAR INSULIN. DUE MEDS GIVEN. PROVIDED FOR COMFORT AND SAFETY. LLE WOUND WITH CLEAN, INTACT DRESSING, WITH WOUND VAC AT 125 MMHG ON CONTINUOUS SUCTION. NO ACUTE CHANGE IN CONDITION NOTED THROUGH SHIFT. WILL ENDORSE TO AM RN FOR RON.
[2016-11-06] MEDS: BLOOD SUGAR DIAGNOSTIC 1 EACH STRIP IN SCH ×4 (06:52→21:10)
[2016-11-06] MEDS: INSULIN REGULAR, HUMAN 100 UNIT/ML 3 ML VIAL SQ PRN ×3 (06:55→18:13)
--- NOTE | 2016-11-06 07:10 | NUR ---
MS RN OPENING RECEIVED PT A/XO4 DENIES PAIN SOB DIFFICULTY BREATHING. RESPIRATIONS EQUAL AND UNLABORED. PT STATES NO NEEDS AT THIS TIME AND APPEARS STABLE. SITTING IN CHAIR WITH LEFT LEG ELEVATED. CALL LIGHT IN REACH, BED LOWERED AND LOCKED, RAILS UPX3 FOR SAFETY AND WILL ROUND Q2H OR LESS PER NEEDS
[2016-11-06 08:00] VITALS: BP 123/66
[2016-11-06] MEDS: LACTOBACILLUS RHAMNOSUS GG 1 EACH CAP.SPRINK PO SCH ×2 (08:28→18:12)
[2016-11-06] MEDS: ASPIRIN EC 81 MG TABLET.DR PO SCH (08:28)
[2016-11-06] MEDS: PANTOPRAZOLE 40 MG TABLET.DR PO SCH (08:28)
[2016-11-06] MEDS: METFORMIN 500 MG TABLET PO SCH ×2 (08:28→18:12)
[2016-11-06] MEDS: AMLODIPINE BESYLATE 10 MG TABLET PO SCH (08:29)
[2016-11-06] MEDS: HYDROCHLOROTHIAZIDE 25 MG TABLET PO SCH (09:00)
[2016-11-06] MEDS: LISINOPRIL (20MG) 20 MG TABLET PO SCH (09:00)
[2016-11-06 10:07] VITALS: BP 120/63
--- NOTE | 2016-11-06 10:09 | NUR ---
MS RN NOTES HOLDING HYDRODIURIL AND LISINOPRIL YESTERDAY PATIENT BP WAS IN THE 90'S AFTER PREVIOUS BP ADMIN
--- NOTE | 2016-11-06 11:30 | NUR ---
ms rn notes snack provided for patient until lunch arrives
--- NOTE | 2016-11-06 13:31 | NUR ---
TOWER EQUIPMENT INSTALLER SPOKE TO DR PLASCENCIA AND PER DPM, CURRENT VAC DRESSING TO REMAIN IN PLACE UPON DISCHARGE FROM THE HOSPITAL. PATIENT TO BE HOOKED UP TO THE PORTABLE HOME VAC UNIT PRIOR TO DISCHARGE AND MAY BE THEN DISCHARGED HOME ONCE DISCHARGE ORDERS ARE OBTAINED. PER DR PLASCENCIA, HOME HEALTH SERVICES WILL BE THROUGH [facility] WITH PHONE NUMBER [phone] AND FAX NUMBER [phone]. PATIENT TO MAKE APPOINTMENT FOR FOLLOW UP AT [facility] [phone] FOR Sunday11/09/16. NO VAC DRESSING CHANGES UNTIL PATIENT SEEN BY DPM ON 11/09/16. PLEASE CALL DR PLASCENCIA [phone] WITH ANY PROBLEMS WITH VAC OR VAC DRESSING.
--- NOTE | 2016-11-06 13:45 | NUR ---
MS RN NOTES PER DR PLASCENCIA REQUET POST SURGICAL BOOT GIVEN TO PATIENT
[2016-11-06 16:00] VITALS: BP 107/59
--- NOTE | 2016-11-06 19:10 | NUR ---
MS RN CLOSING' PT STABLE NO COMPLICATIONS NO CHANGES THROUGHOUT DAY. ALL DUE MEDS GIVEN AND ALL NEEDS MET. PT STATES NO NEEDS AT THIS TIME. CARE ENDORSED TO CARI RAMOS AT THIS TIME
--- NOTE | 2016-11-06 19:30 | NUR ---
MS RN OPENING NOTES: PATIENT SITTING ON BED, AOX4, ON ROOM AIR, BREATHING EVEN AND UNLABORED. APPEARS CALM AND DENIES PAIN AT THIS TIME. L FOOT WITH CLEAN AND INTACT DRESSING, WITH WOUND VAC APPLIED AT 125 MMHG, WITH SEROSANGUINOUS DRAINAGE AT ABOUT 50 ML. YORDY MIDLINE ACCESS CURRENTLY HAS RESISTANCE TO FLUSHING, WILL REASSESS FOR PATENCY. PROVIDED FOR COMFORT AND SAFETY. WILL CONT TO MONITOR.
[2016-11-06] MEDS: CEFTRIAXONE 1 G in IV D5W 50 ML IV SCH (19:45)
--- NOTE | 2016-11-06 20:30 | NUR ---
RN NOTES: PATIENT'S MIDLINE ACCESS AT YORDY HAS RESISTANCE TO FLUSHING. IV INSERTION SITE IS NOT REDDENED OR SWOLLEN OR WARM TO TOUCH, NO SIGNS OF INFILTRATION. TEMPORARY PIV ACCESS INSERTED OVER LFA G 22 TO RUN IV ATB SCHEDULED AT THIS TIME. WILL CONT TO MONITOR.
[2016-11-06] MEDS: INSULIN DETEMIR 100 UNIT/ML CARTRIDGE SQ SCH (21:14)
[2016-11-06] MEDS: SIMVASTATIN 20 MG TABLET PO SCH (21:14)
[2016-11-06] MEDS: *INSULIN REGULAR(HUMULIN R)HUM 100 UNIT/ML VIAL SQ PRN (21:15)
[2016-11-06 22:00] VITALS: BP 121/66
[2016-11-07] MEDS: BLOOD SUGAR DIAGNOSTIC 1 EACH STRIP IN SCH ×4 (06:33→21:02)
[2016-11-07] MEDS: INSULIN REGULAR, HUMAN 100 UNIT/ML 3 ML VIAL SQ PRN (06:39)
--- NOTE | 2016-11-07 07:15 | NUR ---
MS RN CLOSING NOTES: PATIENT IN BED, AOX4, ON ROOM AIR, BREATHING EVEN AND UNLABORED. PIV ACCESS OVER LFA G 22 INTACT AND PATENT TO FLUSH. L FOOT WOUND WITH CLEAN AND INTACT DRESSING WITH WOUND VAC AT 125 MMHG. BLOOD SUGAR CHECKED AT 181 MG/DL, ADMINISTERED 4 UNITS REGULAR INSULIN SQ. DUE MEDS GIVEN. PROVIDED FOR COMFORT NAD SAFETY. WILL ENDORSE TO AM RN FOR RON.
[2016-11-07 08:00] VITALS: BP 112/62
--- NOTE | 2016-11-07 08:00 | NUR ---
MS2 RN AM NOTES RECEIVED PT A/XO4 DENIES PAIN SOB DIFFICULTY BREATHING. RESPIRATIONS EQUAL AND UNLABORED. PT STATES NO NEEDS AT THIS TIME.PT SITTING IN THE CHAIR WITH LEFT LEG ELEVATED IN BED. AT BEDSIDE.CALL LIGHT IN REACH, BED LOWERED AND LOCKED, RAILS UPX3 FOR SAFETY AND WILL ROUND Q2H OR LESS PER NEEDS
--- NOTE | 2016-11-07 09:00 | NUR ---
WITH LT FOOT WOUND VAC INTACT AT 125 MM HG.PT IS FOR DISCHARGE AND IS AWAITING FOR HOME WOUND VAC TO BE DELIVERED.
[2016-11-07] MEDS: PANTOPRAZOLE 40 MG TABLET.DR PO SCH (09:16)
[2016-11-07] MEDS: METFORMIN 500 MG TABLET PO SCH ×2 (09:16→17:06)
[2016-11-07] MEDS: AMLODIPINE BESYLATE 10 MG TABLET PO SCH (09:17)
[2016-11-07] MEDS: LACTOBACILLUS RHAMNOSUS GG 1 EACH CAP.SPRINK PO SCH ×2 (09:17→17:06)
[2016-11-07] MEDS: HYDROCHLOROTHIAZIDE 25 MG TABLET PO SCH (09:17)
[2016-11-07] MEDS: ASPIRIN EC 81 MG TABLET.DR PO SCH (09:17)
[2016-11-07] MEDS: LISINOPRIL (20MG) 20 MG TABLET PO SCH (09:17)
[2016-11-07] MEDS: *INSULIN REGULAR(HUMULIN R)HUM 100 UNIT/ML VIAL SQ PRN ×2 (13:02→21:07)
[2016-11-07 16:00] VITALS: BP 113/63
--- NOTE | 2016-11-07 18:00 | NUR ---
RECEIVED HOME WOUND VAC SUPPLIES AND PT TEACHING DONE.[facility] PAD[facility] ALSO ARRIVED AND SPOKE TO THE PT REGARDING THE IV MEDS SUPPLY.TIM KAHN CALLED AND STATED THAT PT WILL BE DISCHARGED LATE AND THEY WILL DELIVER IV MEDS TOMORROW AT 1300.STILL AWAITING FOR OUR MIDLINE RNTRUNG TO FIX PT'S YORDY MIDLINE.
--- NOTE | 2016-11-07 19:50 | NUR ---
MS RN INITIAL NOTES: RECEIVED REPORT FROM ANI Bernard PT SITTING ON A CHAIR, BLE OFFLOADED, FAMILY AT BED SIDE, PT A/O X3, DENIES ANY PAIN OR DISCOMFORT AT THIS TIME. S/P DEBRIDEMENT OF LEFT FOOT WOUND ON 11/02/[address] BLACK, LEFT FOOT/ANKLE COVERED WITH DRESSING, C/D/I, WITH WOUND VAC IN PLACED AT 125MMHG CONTINUOUS THERAPY, NOTED 60ML OF SEROSANGUINEOUS DRAINAGE IN THE COLLECTION CHAMBER. NO S/S OF LEAK OR INFECTION NOTED. PT HAS YORDY MIDLINE BUT UNABLE TO FLUSH/RESISTANT TO FLUSHING, AWARE. PT FOR DC TONIGHT IF MIDLINE RN WILL COME EARLY BEFORE 1999, BUT PER DR NAVARRETE IF MIDLINE RN COME LATE AROUND 2099, PT MAY STAY FOR ONE MORE NIGHT WILL BE DC IN AM. PT AGREE. PT WILL NEED IV ATB AT HOME FOR 6WEEKS. DC PAPER WORKS COMPLETED BY DAY RN. LEFT FA IV PATENT AND FLUSHING WELL, ON HL. ALL SUPPLIES AND PORTABLE WOUND VAC AT BED SIDE. SAFETY PRECAUTIONS FOR FALL INITIATED CALL LIGHT IN REACH, WILL CONTINUE TO MONITOR
[2016-11-07 20:00] VITALS: BP 116/50
[2016-11-07] MEDS: CEFTRIAXONE 1 G in IV D5W 50 ML IV SCH (20:13)
[2016-11-07] MEDS: SIMVASTATIN 20 MG TABLET PO SCH (21:02)
[2016-11-07] MEDS: INSULIN DETEMIR 100 UNIT/ML CARTRIDGE SQ SCH (21:08)
--- NOTE | 2016-11-07 21:08 | NUR ---
MS RN NOTES: CHECKED BLOOD SUGAR AND REVEAL 189, 3UNITS OF INSULIN GIVEN PER SLIDING SCALE
--- NOTE | 2016-11-07 21:10 | NUR ---
MS RN NOTES: MIDLINE RN CALLED ASKING IF OKAY TO COME IN AM FOR THE MIDLINE, ASKED PT IF WILLING TO LEAVE TONIGHT BUT HE STATED HE TALKED TO THE DOCTOR AND WAS TOLD TO STAY FOR TONIGHT AND JUST GO HOME IN AM IF MIDLINE RN WILL NOT COME TILL 2100. HE ALSO ADDED ITS OKAY FOR HIM TO STAY TONIGHT AND THAT HE DOES NOT HAVE A RIDE HOME. TALKED TO MIDLINE RN AND STATED HE WILL COME TOMORROW IN AM.
[2016-11-08] MEDS: BLOOD SUGAR DIAGNOSTIC 1 EACH STRIP IN SCH (06:25)
[2016-11-08] MEDS: INSULIN REGULAR, HUMAN 100 UNIT/ML 3 ML VIAL SQ PRN (06:31)
--- NOTE | 2016-11-08 06:31 | NUR ---
ms rn notes: checked blood sugar and reveal 160, 2units of insulin given per sliding scale
--- NOTE | 2016-11-08 06:46 | NUR ---
MS RN CLOSING NOTES: PT ON BED, AWAKE, A/O X4, DENIES ANY PAIN OR DISCOMFORT THROUGHOUT THE SHIFT. PICC LINE RN CHRISTAL WILL COME TODAY TO FIX THE PT'S MIDLINE PRIOR TO DC. DC PAPER WORKS COMPLETED, NEED TO BE SIGN BY PT. PORTABLE WOUND VAC AND OTHER SUPPLIES AT BED SIDE. VS REMAINS STABLE. LEFT FOOT DRESSING REMAINS C/D/I, WOUND VAC REMAINS AT 125MMHG CONTINUOS THERAPY. BLE KEPT OFFLOADED. SAFETY PRECAUTIONS FOR FALL REMAINS ENGAGED, CALL LIGHT IN REACH, WILL ENDORSE TO DAY RN FOR RON.
[2016-11-08 08:00] VITALS: BP 124/71
[2016-11-08] MEDS: ASPIRIN EC 81 MG TABLET.DR PO SCH (08:19)
[2016-11-08] MEDS: METFORMIN 500 MG TABLET PO SCH (08:19)
[2016-11-08] MEDS: LACTOBACILLUS RHAMNOSUS GG 1 EACH CAP.SPRINK PO SCH (08:19)
[2016-11-08] MEDS: PANTOPRAZOLE 40 MG TABLET.DR PO SCH (08:19)
[2016-11-08] MEDS: AMLODIPINE BESYLATE 10 MG TABLET PO SCH (08:21)
[2016-11-08 08:22] VITALS: BP 124/79
[2016-11-08] MEDS: LISINOPRIL (20MG) 20 MG TABLET PO SCH (08:22)
[2016-11-08] MEDS: HYDROCHLOROTHIAZIDE 25 MG TABLET PO SCH (08:22)
--- NOTE | 2016-11-08 08:30 | NUR ---
MS/RN Medications Morning medications administered as per order.
--- NOTE | 2016-11-08 09:21 | NUR ---
MS/RN Picc line Picc line nurse at bedside for new line insertion.
--- NOTE | 2016-11-08 11:19 | NUR ---
MS/RN S/B Wound care S/B Dr Daley - dressing changed, home wound vac applied.To follow up in office on Sunday.
--- NOTE | 2016-11-08 11:22 | NUR ---
MS/RN Pictures Discharge pictures taken and placed in chart.
--- NOTE | 2016-11-08 13:21 | NUR ---
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 Home wound vac attached, all supplies with patient. Heplock and name bands removed.
== END 2016-11-08 13:00 | disposition home health service (06) | DRG 853 ==
LOC: ER 23:05 → UNDOADMIN 10-29 01:36 → WOUND2 10-29 01:36 → MEDSG2 10-29 01:36 → UNDODISIN 11-02 16:00
PROVIDERS: ADMIT Nurse Practitioner Acute Care; ATTEND Nurse Practitioner Acute Care
PROC: 0QBP0ZZ Excision of Left Metatarsal, Open Approach (ICD-10-PCS; principal; 2016-10-30 10:00)
PROC: 0QBP0ZZ Excision of Left Metatarsal, Open Approach (ICD-10-PCS; 2016-11-02)
PROC: 05H533Z Insertion of Infusion Device into Right Subclavian Vein, Percutaneous Approach (ICD-10-PCS; 2016-11-08)
DX: A41.9 Sepsis, unspecified organism (principal); N17.0 Acute kidney failure with tubular necrosis; A48.0 Gas gangrene; L03.116 Cellulitis of left lower limb; E87.1 Hypo-osmolality and hyponatremia; M86.172 Other acute osteomyelitis, left ankle and foot; E11.52 Type 2 diabetes mellitus with diabetic peripheral angiopathy with gangrene; E11.621 Type 2 diabetes mellitus with foot ulcer; E11.65 Type 2 diabetes mellitus with hyperglycemia; E11.69 Type 2 diabetes mellitus with other specified complication; E78.5 Hyperlipidemia, unspecified; F17.210 Nicotine dependence, cigarettes, uncomplicated; I10 Essential (primary) hypertension; L97.524 Non-pressure chronic ulcer of other part of left foot with necrosis of bone; E11.42 Type 2 diabetes mellitus with diabetic polyneuropathy; Z71.6 Tobacco abuse counseling; E87.5 Hyperkalemia; B95.1 Streptococcus, group B, as the cause of diseases classified elsewhere
CPT/HCPCS: 36415; 36600; 71010-TC; 73630-TC; 73718-TC; 80048-TC; 80061-TC; 80202-TC; 81000-TC; 82803-TC; 82962-TC; 83735-TC; 84100-TC; 85025-TC; 85610-TC; 87070-TC; 87075-TC; 87081-TC; 88305-TC; 88311-TC; 88312-TC; 97001-TC; 97003-TC; A4606; A6209; A6402; A6403; C1769; J0696; J1650; J1815; J2001; J2250; J2405; J2543; J2704; J3010; J3370; J3490; J7030; J7050; J7060; Z7610

== ENCOUNTER 2016-11-13 08:30 | Outpatient (CLI) | payer MEDICARE, OTHER | END 2016-11-13 23:59 | disposition home or self-care (01) | LOC: WOU 08:30 | PROVIDERS: ATTEND Podiatrist Foot & Ankle Surgery | DX: E11.621 Type 2 diabetes mellitus with foot ulcer (principal); L97.523 Non-pressure chronic ulcer of other part of left foot with necrosis of muscle; Z89.411 Acquired absence of right great toe; L03.032 Cellulitis of left toe; E11.69 Type 2 diabetes mellitus with other specified complication; M86.172 Other acute osteomyelitis, left ankle and foot; E11.42 Type 2 diabetes mellitus with diabetic polyneuropathy; Z91.19 Patient's noncompliance with other medical treatment and regimen; F17.210 Nicotine dependence, cigarettes, uncomplicated; Z98.890 Other specified postprocedural states; M20.5X1 Other deformities of toe(s) (acquired), right foot; Z79.4 Long term (current) use of insulin; Z79.84 Long term (current) use of oral hypoglycemic drugs | CPT/HCPCS: 15275; A6253; A6402; Q4131 ==

== ENCOUNTER 2016-11-16 08:10 | Outpatient (CLI) | payer MEDICARE, OTHER | END 2016-11-16 23:59 | disposition home or self-care (01) | LOC: WOU 08:10 | PROVIDERS: ATTEND Podiatrist Foot & Ankle Surgery | DX: E11.621 Type 2 diabetes mellitus with foot ulcer (principal); L97.523 Non-pressure chronic ulcer of other part of left foot with necrosis of muscle; E11.42 Type 2 diabetes mellitus with diabetic polyneuropathy; Z89.411 Acquired absence of right great toe; M20.5X2 Other deformities of toe(s) (acquired), left foot; L03.032 Cellulitis of left toe; F17.200 Nicotine dependence, unspecified, uncomplicated; E11.69 Type 2 diabetes mellitus with other specified complication; M86.172 Other acute osteomyelitis, left ankle and foot; Z91.19 Patient's noncompliance with other medical treatment and regimen | CPT/HCPCS: 97605-TC; A6253; A6402 ==

== ENCOUNTER 2016-11-20 08:30 | Outpatient (CLI) | payer MEDICARE, OTHER | END 2016-11-20 23:59 | disposition home health service (06) | LOC: WOU 08:30 | PROVIDERS: ATTEND Podiatrist Foot & Ankle Surgery | DX: E11.621 Type 2 diabetes mellitus with foot ulcer (principal); L97.523 Non-pressure chronic ulcer of other part of left foot with necrosis of muscle; Z89.411 Acquired absence of right great toe; M20.5X2 Other deformities of toe(s) (acquired), left foot; E11.42 Type 2 diabetes mellitus with diabetic polyneuropathy; F17.200 Nicotine dependence, unspecified, uncomplicated; Z91.19 Patient's noncompliance with other medical treatment and regimen; E11.69 Type 2 diabetes mellitus with other specified complication; M86.172 Other acute osteomyelitis, left ankle and foot; Z98.890 Other specified postprocedural states; Z79.84 Long term (current) use of oral hypoglycemic drugs; Z79.4 Long term (current) use of insulin | CPT/HCPCS: 15275; A6402; Q4131 ==

== ENCOUNTER 2016-11-23 08:20 | Outpatient (CLI) | payer MEDICARE, OTHER | END 2016-11-23 23:59 | disposition home health service (06) | LOC: WOU 08:20 | PROVIDERS: ATTEND Podiatrist Foot & Ankle Surgery | DX: E11.621 Type 2 diabetes mellitus with foot ulcer (principal); L97.523 Non-pressure chronic ulcer of other part of left foot with necrosis of muscle; Z89.411 Acquired absence of right great toe; M20.5X2 Other deformities of toe(s) (acquired), left foot; E11.42 Type 2 diabetes mellitus with diabetic polyneuropathy; F17.200 Nicotine dependence, unspecified, uncomplicated; Z91.19 Patient's noncompliance with other medical treatment and regimen; E11.69 Type 2 diabetes mellitus with other specified complication; M86.172 Other acute osteomyelitis, left ankle and foot; Z98.890 Other specified postprocedural states; Z79.84 Long term (current) use of oral hypoglycemic drugs; Z79.4 Long term (current) use of insulin | CPT/HCPCS: 97605; A6402 ==

== ENCOUNTER 2016-11-27 08:15 | Outpatient (CLI) | payer MEDICARE, OTHER | END 2016-11-27 23:59 | disposition home health service (06) | LOC: WOU 08:15 | PROVIDERS: ATTEND Podiatrist Foot & Ankle Surgery | DX: E11.621 Type 2 diabetes mellitus with foot ulcer (principal); L97.523 Non-pressure chronic ulcer of other part of left foot with necrosis of muscle; Z89.411 Acquired absence of right great toe; M20.5X2 Other deformities of toe(s) (acquired), left foot; E11.42 Type 2 diabetes mellitus with diabetic polyneuropathy; F17.200 Nicotine dependence, unspecified, uncomplicated; Z91.19 Patient's noncompliance with other medical treatment and regimen; E11.69 Type 2 diabetes mellitus with other specified complication; M86.172 Other acute osteomyelitis, left ankle and foot; Z98.890 Other specified postprocedural states; Z79.84 Long term (current) use of oral hypoglycemic drugs; Z79.4 Long term (current) use of insulin | CPT/HCPCS: 15275; A6402; Q4131 ==

== ENCOUNTER 2016-11-30 08:20 | Outpatient (CLI) | payer MEDICARE, OTHER | END 2016-11-30 23:59 | disposition home health service (06) | LOC: WOU 08:20 | PROVIDERS: ATTEND Podiatrist Foot & Ankle Surgery | DX: E11.621 Type 2 diabetes mellitus with foot ulcer (principal); L97.523 Non-pressure chronic ulcer of other part of left foot with necrosis of muscle; E11.42 Type 2 diabetes mellitus with diabetic polyneuropathy; Z91.19 Patient's noncompliance with other medical treatment and regimen; Z89.411 Acquired absence of right great toe; E11.69 Type 2 diabetes mellitus with other specified complication; M86.172 Other acute osteomyelitis, left ankle and foot; F17.200 Nicotine dependence, unspecified, uncomplicated | CPT/HCPCS: 97605-TC; A6402 ==

== ENCOUNTER 2016-12-04 08:46 | Outpatient (CLI) | payer MEDICARE, OTHER | END 2016-12-04 23:59 | disposition home health service (06) | LOC: WOU 08:46 | PROVIDERS: ATTEND Podiatrist Foot & Ankle Surgery | DX: E11.621 Type 2 diabetes mellitus with foot ulcer (principal); L97.523 Non-pressure chronic ulcer of other part of left foot with necrosis of muscle; E11.42 Type 2 diabetes mellitus with diabetic polyneuropathy; Z91.19 Patient's noncompliance with other medical treatment and regimen; Z89.411 Acquired absence of right great toe; E11.69 Type 2 diabetes mellitus with other specified complication; M86.172 Other acute osteomyelitis, left ankle and foot; F17.200 Nicotine dependence, unspecified, uncomplicated; M20.5X2 Other deformities of toe(s) (acquired), left foot; L03.032 Cellulitis of left toe | CPT/HCPCS: 15275; A6402 ==

== ENCOUNTER 2016-12-04 10:11 | Outpatient (CLI) | payer MEDICARE, OTHER | END 2016-12-04 23:59 | disposition home or self-care (01) | LOC: RAD 10:11 | PROVIDERS: ATTEND Podiatrist Foot & Ankle Surgery | DX: I70.0 Atherosclerosis of aorta (principal); J98.11 Atelectasis | CPT/HCPCS: 71020-TC ==

== ENCOUNTER 2016-12-07 08:00 | Outpatient (CLI) | payer MEDICARE, OTHER | END 2016-12-07 23:59 | disposition home health service (06) | LOC: WOU 08:00 | PROVIDERS: ATTEND Podiatrist Foot & Ankle Surgery | DX: E11.621 Type 2 diabetes mellitus with foot ulcer (principal); L97.523 Non-pressure chronic ulcer of other part of left foot with necrosis of muscle; E11.42 Type 2 diabetes mellitus with diabetic polyneuropathy; Z89.411 Acquired absence of right great toe; M20.5X2 Other deformities of toe(s) (acquired), left foot; L03.032 Cellulitis of left toe; E11.69 Type 2 diabetes mellitus with other specified complication; M86.172 Other acute osteomyelitis, left ankle and foot; Z91.19 Patient's noncompliance with other medical treatment and regimen; Z98.890 Other specified postprocedural states | CPT/HCPCS: 97605; A6402 ×2 ==

== ENCOUNTER 2016-12-11 08:13 | Outpatient (CLI) | payer MEDICARE, OTHER | END 2016-12-11 23:59 | disposition home health service (06) | LOC: WOU 08:13 | PROVIDERS: ATTEND Podiatrist Foot & Ankle Surgery | DX: E11.621 Type 2 diabetes mellitus with foot ulcer (principal); L97.523 Non-pressure chronic ulcer of other part of left foot with necrosis of muscle; E11.42 Type 2 diabetes mellitus with diabetic polyneuropathy; Z89.411 Acquired absence of right great toe; M20.5X2 Other deformities of toe(s) (acquired), left foot; E11.69 Type 2 diabetes mellitus with other specified complication; M86.172 Other acute osteomyelitis, left ankle and foot; F17.200 Nicotine dependence, unspecified, uncomplicated; Z91.19 Patient's noncompliance with other medical treatment and regimen; Z98.890 Other specified postprocedural states; Z79.4 Long term (current) use of insulin; Z79.84 Long term (current) use of oral hypoglycemic drugs | CPT/HCPCS: 15275; A6402; Q4131 ==

== ENCOUNTER 2016-12-14 08:30 | Outpatient (CLI) | payer MEDICARE, OTHER | END 2016-12-14 23:59 | disposition home health service (06) | LOC: WOU 08:30 | PROVIDERS: ATTEND Podiatrist Foot & Ankle Surgery | DX: E11.621 Type 2 diabetes mellitus with foot ulcer (principal); L97.523 Non-pressure chronic ulcer of other part of left foot with necrosis of muscle; E11.42 Type 2 diabetes mellitus with diabetic polyneuropathy; Z89.411 Acquired absence of right great toe; M20.5X1 Other deformities of toe(s) (acquired), right foot; F17.200 Nicotine dependence, unspecified, uncomplicated; Z91.19 Patient's noncompliance with other medical treatment and regimen; M86.172 Other acute osteomyelitis, left ankle and foot; L03.032 Cellulitis of left toe | CPT/HCPCS: 97605; A6402 ==

== ENCOUNTER 2016-12-18 08:20 | Outpatient (CLI) | payer MEDICARE, OTHER | END 2016-12-18 23:59 | disposition home health service (06) | LOC: WOU 08:20 | PROVIDERS: ATTEND Podiatrist Foot & Ankle Surgery | DX: E11.621 Type 2 diabetes mellitus with foot ulcer (principal); L97.523 Non-pressure chronic ulcer of other part of left foot with necrosis of muscle; E11.42 Type 2 diabetes mellitus with diabetic polyneuropathy; Z89.411 Acquired absence of right great toe; M20.5X1 Other deformities of toe(s) (acquired), right foot; F17.200 Nicotine dependence, unspecified, uncomplicated; Z91.19 Patient's noncompliance with other medical treatment and regimen; M86.172 Other acute osteomyelitis, left ankle and foot; L03.032 Cellulitis of left toe | CPT/HCPCS: 15275; 90713-TC; A6402 ==

== ENCOUNTER 2016-12-21 08:10 | Outpatient (CLI) | payer MEDICARE, OTHER | END 2016-12-21 23:59 | disposition home or self-care (01) | LOC: WOU 08:10 | PROVIDERS: ATTEND Internal Medicine Infectious Disease | PROC: 05H533Z Insertion of Infusion Device into Right Subclavian Vein, Percutaneous Approach (ICD-10-PCS; principal; 2016-12-21) | DX: Z45.2 Encounter for adjustment and management of vascular access device (principal) | CPT/HCPCS: 97605-TC; A6253; A6402 ==

== ENCOUNTER 2016-12-21 09:00 | Outpatient (CLI) | payer MEDICARE, OTHER | END 2016-12-21 23:59 | disposition home health service (06) | LOC: WOU 09:00 | PROVIDERS: ATTEND Podiatrist Foot & Ankle Surgery | DX: E11.621 Type 2 diabetes mellitus with foot ulcer (principal); L97.523 Non-pressure chronic ulcer of other part of left foot with necrosis of muscle; E11.42 Type 2 diabetes mellitus with diabetic polyneuropathy; Z89.411 Acquired absence of right great toe; M20.5X2 Other deformities of toe(s) (acquired), left foot; F17.200 Nicotine dependence, unspecified, uncomplicated; E11.69 Type 2 diabetes mellitus with other specified complication; M86.172 Other acute osteomyelitis, left ankle and foot; L03.032 Cellulitis of left toe | CPT/HCPCS: 97605; A6253; A6402 ==

== ENCOUNTER 2016-12-25 08:30 | Outpatient (CLI) | payer MEDICARE, OTHER | END 2016-12-25 23:59 | disposition home health service (06) | LOC: WOU 08:30 | PROVIDERS: ATTEND Podiatrist Foot & Ankle Surgery | DX: E11.621 Type 2 diabetes mellitus with foot ulcer (principal); L97.523 Non-pressure chronic ulcer of other part of left foot with necrosis of muscle; E11.42 Type 2 diabetes mellitus with diabetic polyneuropathy; Z89.411 Acquired absence of right great toe; M20.5X1 Other deformities of toe(s) (acquired), right foot; F17.200 Nicotine dependence, unspecified, uncomplicated; Z91.19 Patient's noncompliance with other medical treatment and regimen; M86.172 Other acute osteomyelitis, left ankle and foot | CPT/HCPCS: 15275; A6253; A6402 ==

== ENCOUNTER → 2016-12-28 | Outpatient (CLI) | payer MEDICARE, OTHER | END | disposition home health service (06) | LOC: WOU 08:30 | PROVIDERS: ATTEND Podiatrist Foot & Ankle Surgery | DX: E11.621 Type 2 diabetes mellitus with foot ulcer (principal); L97.523 Non-pressure chronic ulcer of other part of left foot with necrosis of muscle; E11.42 Type 2 diabetes mellitus with diabetic polyneuropathy; Z89.411 Acquired absence of right great toe; M20.5X2 Other deformities of toe(s) (acquired), left foot; E11.69 Type 2 diabetes mellitus with other specified complication; M86.172 Other acute osteomyelitis, left ankle and foot; Z98.890 Other specified postprocedural states; Z79.4 Long term (current) use of insulin; Z79.84 Long term (current) use of oral hypoglycemic drugs | CPT/HCPCS: 97605; A6253; A6402 ==

== ENCOUNTER 2017-01-01 10:02 | Outpatient (CLI) | payer MEDICARE, OTHER | END 2017-01-01 23:59 | disposition home health service (06) | LOC: WOU 10:02 | PROVIDERS: ATTEND Podiatrist Foot & Ankle Surgery | DX: E11.621 Type 2 diabetes mellitus with foot ulcer (principal); L97.524 Non-pressure chronic ulcer of other part of left foot with necrosis of bone; E11.42 Type 2 diabetes mellitus with diabetic polyneuropathy; Z89.411 Acquired absence of right great toe; M20.5X2 Other deformities of toe(s) (acquired), left foot | CPT/HCPCS: 15275; A6253; A6402 ×2; Q4131 ==

== ENCOUNTER 2017-01-04 10:00 | Outpatient (CLI) | payer MEDICARE, OTHER | END 2017-01-04 23:59 | disposition home health service (06) | LOC: WOU 10:00 | PROVIDERS: ATTEND Podiatrist Foot & Ankle Surgery | DX: E11.621 Type 2 diabetes mellitus with foot ulcer (principal); L97.524 Non-pressure chronic ulcer of other part of left foot with necrosis of bone; E11.42 Type 2 diabetes mellitus with diabetic polyneuropathy; E11.69 Type 2 diabetes mellitus with other specified complication; M86.172 Other acute osteomyelitis, left ankle and foot; F17.200 Nicotine dependence, unspecified, uncomplicated; Z89.411 Acquired absence of right great toe; M20.5X2 Other deformities of toe(s) (acquired), left foot; L03.032 Cellulitis of left toe | CPT/HCPCS: 11044; 97605-TC; A6253; A6402 ==

== ENCOUNTER 2017-01-08 10:35 | Outpatient (CLI) | payer MEDICARE, OTHER | END 2017-01-08 23:59 | disposition home health service (06) | LOC: WOU 10:35 | PROVIDERS: ATTEND Podiatrist Foot & Ankle Surgery | DX: E11.621 Type 2 diabetes mellitus with foot ulcer (principal); L97.524 Non-pressure chronic ulcer of other part of left foot with necrosis of bone; E11.69 Type 2 diabetes mellitus with other specified complication; M86.172 Other acute osteomyelitis, left ankle and foot; Z89.411 Acquired absence of right great toe; M20.5X2 Other deformities of toe(s) (acquired), left foot; Z79.84 Long term (current) use of oral hypoglycemic drugs; Z79.4 Long term (current) use of insulin | CPT/HCPCS: 11044; 97605-TC; A6402 ==

== ENCOUNTER 2017-01-11 09:57 | Outpatient (CLI) | payer MEDICARE, OTHER | END 2017-01-11 23:59 | disposition home health service (06) | LOC: WOU 09:57 | PROVIDERS: ATTEND Podiatrist Foot & Ankle Surgery | DX: E11.621 Type 2 diabetes mellitus with foot ulcer (principal); E11.42 Type 2 diabetes mellitus with diabetic polyneuropathy; Z91.19 Patient's noncompliance with other medical treatment and regimen; F17.200 Nicotine dependence, unspecified, uncomplicated; Z89.411 Acquired absence of right great toe; M20.5X2 Other deformities of toe(s) (acquired), left foot; L97.524 Non-pressure chronic ulcer of other part of left foot with necrosis of bone; L03.032 Cellulitis of left toe; E11.69 Type 2 diabetes mellitus with other specified complication; M86.172 Other acute osteomyelitis, left ankle and foot | CPT/HCPCS: 11044; 97605-TC; A6402 ==

== ENCOUNTER 2017-01-18 10:58 | Outpatient (CLI) | payer MEDICARE, OTHER | END 2017-01-18 23:59 | disposition home health service (06) | LOC: WOU 10:58 | PROVIDERS: ATTEND Surgery | DX: E11.621 Type 2 diabetes mellitus with foot ulcer (principal); L97.524 Non-pressure chronic ulcer of other part of left foot with necrosis of bone; Z89.411 Acquired absence of right great toe; M20.5X2 Other deformities of toe(s) (acquired), left foot; F17.200 Nicotine dependence, unspecified, uncomplicated; E11.42 Type 2 diabetes mellitus with diabetic polyneuropathy | CPT/HCPCS: 11043; 97605; A6402 ==

== ENCOUNTER 2017-01-25 10:05 | Outpatient (CLI) | payer MEDICARE, OTHER | END 2017-01-25 23:59 | disposition home health service (06) | LOC: WOU 10:05 | PROVIDERS: ATTEND Podiatrist Foot & Ankle Surgery | DX: E11.621 Type 2 diabetes mellitus with foot ulcer (principal); L97.524 Non-pressure chronic ulcer of other part of left foot with necrosis of bone; E11.69 Type 2 diabetes mellitus with other specified complication; M86.172 Other acute osteomyelitis, left ankle and foot; M86.672 Other chronic osteomyelitis, left ankle and foot; B96.20 Unspecified Escherichia coli [E. coli] as the cause of diseases classified elsewhere; B95.5 Unspecified streptococcus as the cause of diseases classified elsewhere; Z89.411 Acquired absence of right great toe; F17.210 Nicotine dependence, cigarettes, uncomplicated; E11.51 Type 2 diabetes mellitus with diabetic peripheral angiopathy without gangrene; E78.5 Hyperlipidemia, unspecified; I10 Essential (primary) hypertension | CPT/HCPCS: 11044; 97605-TC; A6402; G0463 ==

== ENCOUNTER 2017-01-29 09:37 | Outpatient (CLI) | payer MEDICARE, OTHER | END 2017-01-29 23:59 | disposition home health service (06) | LOC: WOU 09:37 | PROVIDERS: ATTEND Podiatrist Foot & Ankle Surgery | DX: E11.621 Type 2 diabetes mellitus with foot ulcer (principal); L97.524 Non-pressure chronic ulcer of other part of left foot with necrosis of bone; Z89.411 Acquired absence of right great toe; E11.42 Type 2 diabetes mellitus with diabetic polyneuropathy; E11.69 Type 2 diabetes mellitus with other specified complication; M86.172 Other acute osteomyelitis, left ankle and foot; M20.5X1 Other deformities of toe(s) (acquired), right foot; F17.200 Nicotine dependence, unspecified, uncomplicated; E11.52 Type 2 diabetes mellitus with diabetic peripheral angiopathy with gangrene | CPT/HCPCS: 11044; 97605; A6402 ×2 ==

== ENCOUNTER 2017-02-01 10:00 | Outpatient (CLI) | payer MEDICARE, OTHER | END 2017-02-01 23:59 | disposition home health service (06) | LOC: WOU 10:00 | PROVIDERS: ATTEND Podiatrist Foot & Ankle Surgery | DX: E11.621 Type 2 diabetes mellitus with foot ulcer (principal); L97.524 Non-pressure chronic ulcer of other part of left foot with necrosis of bone; L03.032 Cellulitis of left toe; E11.69 Type 2 diabetes mellitus with other specified complication; M86.172 Other acute osteomyelitis, left ankle and foot; Z89.411 Acquired absence of right great toe; M20.5X2 Other deformities of toe(s) (acquired), left foot; F17.200 Nicotine dependence, unspecified, uncomplicated; Z79.4 Long term (current) use of insulin; Z79.84 Long term (current) use of oral hypoglycemic drugs | CPT/HCPCS: 11044; 97605; A6402 ==

== ENCOUNTER 2017-02-05 09:43 | Outpatient (CLI) | payer MEDICARE, OTHER | END 2017-02-05 23:59 | disposition home health service (06) | LOC: WOU 09:43 | PROVIDERS: ATTEND Podiatrist Foot & Ankle Surgery | DX: E11.621 Type 2 diabetes mellitus with foot ulcer (principal); L97.523 Non-pressure chronic ulcer of other part of left foot with necrosis of muscle; E11.42 Type 2 diabetes mellitus with diabetic polyneuropathy; Z89.411 Acquired absence of right great toe; M20.5X2 Other deformities of toe(s) (acquired), left foot; E11.69 Type 2 diabetes mellitus with other specified complication; F17.200 Nicotine dependence, unspecified, uncomplicated; L03.032 Cellulitis of left toe; M86.172 Other acute osteomyelitis, left ankle and foot; Z79.82 Long term (current) use of aspirin; Z79.84 Long term (current) use of oral hypoglycemic drugs; Z79.4 Long term (current) use of insulin | CPT/HCPCS: 11043; 97605; A6402 ==

== ENCOUNTER 2017-02-08 09:57 | Outpatient (CLI) | payer MEDICARE, OTHER | END 2017-02-08 23:59 | disposition home health service (06) | LOC: WOU 09:57 | PROVIDERS: ATTEND Podiatrist Foot & Ankle Surgery | DX: E11.621 Type 2 diabetes mellitus with foot ulcer (principal); M20.5X1 Other deformities of toe(s) (acquired), right foot; Z89.411 Acquired absence of right great toe; E11.42 Type 2 diabetes mellitus with diabetic polyneuropathy; F17.200 Nicotine dependence, unspecified, uncomplicated | CPT/HCPCS: 11044; 97605; A6402; Z7610 ==

== ENCOUNTER 2017-02-12 08:55 | Outpatient (CLI) | payer MEDICARE, OTHER | END 2017-02-12 23:59 | disposition home health service (06) | LOC: WOU 08:55 | PROVIDERS: ATTEND Podiatrist Foot & Ankle Surgery | DX: E11.621 Type 2 diabetes mellitus with foot ulcer (principal); L97.524 Non-pressure chronic ulcer of other part of left foot with necrosis of bone; E11.69 Type 2 diabetes mellitus with other specified complication; M86.172 Other acute osteomyelitis, left ankle and foot; M20.5X2 Other deformities of toe(s) (acquired), left foot; Z89.411 Acquired absence of right great toe; E11.42 Type 2 diabetes mellitus with diabetic polyneuropathy; F17.200 Nicotine dependence, unspecified, uncomplicated; L03.032 Cellulitis of left toe | CPT/HCPCS: 11044; A6402 ==

== ENCOUNTER 2017-02-15 09:16 | Outpatient (CLI) | payer MEDICARE, OTHER | END 2017-02-15 23:59 | disposition home health service (06) | LOC: WOU 09:16 | PROVIDERS: ATTEND Podiatrist Foot & Ankle Surgery | DX: E11.621 Type 2 diabetes mellitus with foot ulcer (principal); L97.524 Non-pressure chronic ulcer of other part of left foot with necrosis of bone; E66.9 Obesity, unspecified; M86.172 Other acute osteomyelitis, left ankle and foot; M20.5X1 Other deformities of toe(s) (acquired), right foot; E11.42 Type 2 diabetes mellitus with diabetic polyneuropathy | CPT/HCPCS: 11044; 87070-TC; 87075-TC; 87186-TC; A6402 ==

== ENCOUNTER 2017-02-19 13:00 | Outpatient (CLI) | payer MEDICARE, OTHER | END 2017-02-19 23:59 | disposition home or self-care (01) | LOC: WOU 13:00 | PROVIDERS: ATTEND Internal Medicine Infectious Disease | DX: M86.8X7 Other osteomyelitis, ankle and foot (principal); B95.5 Unspecified streptococcus as the cause of diseases classified elsewhere; B96.20 Unspecified Escherichia coli [E. coli] as the cause of diseases classified elsewhere; E11.621 Type 2 diabetes mellitus with foot ulcer; L97.529 Non-pressure chronic ulcer of other part of left foot with unspecified severity; Z79.4 Long term (current) use of insulin; Z79.84 Long term (current) use of oral hypoglycemic drugs; Z79.82 Long term (current) use of aspirin; E78.5 Hyperlipidemia, unspecified; Z79.899 Other long term (current) drug therapy; Z72.0 Tobacco use; I10 Essential (primary) hypertension | CPT/HCPCS: A6402; G0463 ==

== ENCOUNTER 2017-02-22 10:20 | Outpatient (CLI) | payer MEDICARE, OTHER | END 2017-02-22 23:59 | disposition home health service (06) | LOC: WOU 10:20 | PROVIDERS: ATTEND Surgery | DX: E11.621 Type 2 diabetes mellitus with foot ulcer (principal); L97.524 Non-pressure chronic ulcer of other part of left foot with necrosis of bone; E11.42 Type 2 diabetes mellitus with diabetic polyneuropathy; E11.69 Type 2 diabetes mellitus with other specified complication; M86.172 Other acute osteomyelitis, left ankle and foot; Z89.411 Acquired absence of right great toe; F17.210 Nicotine dependence, cigarettes, uncomplicated; Z91.19 Patient's noncompliance with other medical treatment and regimen | CPT/HCPCS: 11044; A6402 ==

== ENCOUNTER 2017-02-26 10:05 | Outpatient (CLI) | payer MEDICARE, OTHER | END 2017-02-26 23:59 | disposition home health service (06) | LOC: WOU 10:05 | PROVIDERS: ATTEND Podiatrist Foot & Ankle Surgery | DX: E11.621 Type 2 diabetes mellitus with foot ulcer (principal); L97.523 Non-pressure chronic ulcer of other part of left foot with necrosis of muscle; E11.42 Type 2 diabetes mellitus with diabetic polyneuropathy; Z89.411 Acquired absence of right great toe; M20.5X2 Other deformities of toe(s) (acquired), left foot; F17.200 Nicotine dependence, unspecified, uncomplicated; E11.69 Type 2 diabetes mellitus with other specified complication; M86.172 Other acute osteomyelitis, left ankle and foot; Z79.4 Long term (current) use of insulin; Z79.84 Long term (current) use of oral hypoglycemic drugs; Z79.899 Other long term (current) drug therapy | CPT/HCPCS: 11043; A6402 ==

== ENCOUNTER 2017-03-01 09:56 | Outpatient (CLI) | payer MEDICARE, OTHER | END 2017-03-01 23:59 | disposition home health service (06) | LOC: WOU 09:56 | PROVIDERS: ATTEND Podiatrist Foot & Ankle Surgery | DX: E11.621 Type 2 diabetes mellitus with foot ulcer (principal); E11.42 Type 2 diabetes mellitus with diabetic polyneuropathy; L97.524 Non-pressure chronic ulcer of other part of left foot with necrosis of bone; Z89.411 Acquired absence of right great toe; M20.5X2 Other deformities of toe(s) (acquired), left foot; E11.69 Type 2 diabetes mellitus with other specified complication; M86.172 Other acute osteomyelitis, left ankle and foot; Z91.19 Patient's noncompliance with other medical treatment and regimen; F17.200 Nicotine dependence, unspecified, uncomplicated; Z79.4 Long term (current) use of insulin; Z79.84 Long term (current) use of oral hypoglycemic drugs; Z79.899 Other long term (current) drug therapy | CPT/HCPCS: 11043; A6402 ==

== ENCOUNTER 2017-03-05 11:38 | Outpatient (CLI) | payer MEDICARE, OTHER | END 2017-03-05 23:59 | disposition home health service (06) | LOC: WOU 11:38 | PROVIDERS: ATTEND Podiatrist Foot & Ankle Surgery | DX: E11.621 Type 2 diabetes mellitus with foot ulcer (principal); L97.524 Non-pressure chronic ulcer of other part of left foot with necrosis of bone; E11.69 Type 2 diabetes mellitus with other specified complication; M86.172 Other acute osteomyelitis, left ankle and foot; Z89.411 Acquired absence of right great toe; M20.5X2 Other deformities of toe(s) (acquired), left foot; E11.42 Type 2 diabetes mellitus with diabetic polyneuropathy; F17.200 Nicotine dependence, unspecified, uncomplicated; Z91.19 Patient's noncompliance with other medical treatment and regimen; Z79.84 Long term (current) use of oral hypoglycemic drugs; Z79.4 Long term (current) use of insulin; Z79.82 Long term (current) use of aspirin | CPT/HCPCS: 11044; A6402 ==

== ENCOUNTER 2017-03-08 09:56 | Outpatient (CLI) | payer MEDICARE, OTHER | END 2017-03-08 23:59 | disposition home health service (06) | LOC: WOU 09:56 | PROVIDERS: ATTEND Podiatrist Foot & Ankle Surgery | DX: E11.621 Type 2 diabetes mellitus with foot ulcer (principal); E11.42 Type 2 diabetes mellitus with diabetic polyneuropathy; L97.524 Non-pressure chronic ulcer of other part of left foot with necrosis of bone; Z91.19 Patient's noncompliance with other medical treatment and regimen; F17.200 Nicotine dependence, unspecified, uncomplicated; E11.69 Type 2 diabetes mellitus with other specified complication; M86.172 Other acute osteomyelitis, left ankle and foot; Z89.411 Acquired absence of right great toe; M20.5X2 Other deformities of toe(s) (acquired), left foot; L03.032 Cellulitis of left toe | CPT/HCPCS: 11044; A6402 ==

== ENCOUNTER 2017-03-12 09:45 | Outpatient (CLI) | payer MEDICARE, OTHER | END 2017-03-12 23:59 | disposition home health service (06) | LOC: WOU 09:45 | PROVIDERS: ATTEND Podiatrist Foot & Ankle Surgery | DX: E11.621 Type 2 diabetes mellitus with foot ulcer (principal); L97.524 Non-pressure chronic ulcer of other part of left foot with necrosis of bone; Z91.19 Patient's noncompliance with other medical treatment and regimen; F17.200 Nicotine dependence, unspecified, uncomplicated; L03.032 Cellulitis of left toe; Z89.411 Acquired absence of right great toe; M20.5X2 Other deformities of toe(s) (acquired), left foot; E11.69 Type 2 diabetes mellitus with other specified complication; M86.172 Other acute osteomyelitis, left ankle and foot; E11.42 Type 2 diabetes mellitus with diabetic polyneuropathy; Z79.84 Long term (current) use of oral hypoglycemic drugs; Z79.899 Other long term (current) drug therapy; Z79.82 Long term (current) use of aspirin; Z79.4 Long term (current) use of insulin | CPT/HCPCS: 11044; A6402 ==

== ENCOUNTER 2017-03-15 09:54 | Outpatient (CLI) | payer MEDICARE, OTHER | END 2017-03-15 23:59 | disposition home health service (06) | LOC: WOU 09:54 | PROVIDERS: ATTEND Podiatrist Foot & Ankle Surgery | DX: E11.621 Type 2 diabetes mellitus with foot ulcer (principal); L97.523 Non-pressure chronic ulcer of other part of left foot with necrosis of muscle; E11.42 Type 2 diabetes mellitus with diabetic polyneuropathy; Z89.411 Acquired absence of right great toe; M20.5X1 Other deformities of toe(s) (acquired), right foot; F17.200 Nicotine dependence, unspecified, uncomplicated; Z91.19 Patient's noncompliance with other medical treatment and regimen; E11.69 Type 2 diabetes mellitus with other specified complication; M86.172 Other acute osteomyelitis, left ankle and foot; Z79.4 Long term (current) use of insulin; Z79.82 Long term (current) use of aspirin; Z79.899 Other long term (current) drug therapy | CPT/HCPCS: 11043; A6402 ==

== ENCOUNTER 2017-03-19 09:45 | Outpatient (CLI) | payer MEDICARE, OTHER | END 2017-03-19 23:59 | disposition home health service (06) | LOC: WOU 09:45 | PROVIDERS: ATTEND Podiatrist Foot & Ankle Surgery | DX: E11.621 Type 2 diabetes mellitus with foot ulcer (principal); L97.523 Non-pressure chronic ulcer of other part of left foot with necrosis of muscle; E11.42 Type 2 diabetes mellitus with diabetic polyneuropathy; L97.521 Non-pressure chronic ulcer of other part of left foot limited to breakdown of skin; Z89.411 Acquired absence of right great toe; Z91.19 Patient's noncompliance with other medical treatment and regimen; M20.5X1 Other deformities of toe(s) (acquired), right foot; E11.69 Type 2 diabetes mellitus with other specified complication; M86.172 Other acute osteomyelitis, left ankle and foot; Z79.4 Long term (current) use of insulin; Z79.82 Long term (current) use of aspirin; Z79.899 Other long term (current) drug therapy; F17.200 Nicotine dependence, unspecified, uncomplicated | CPT/HCPCS: 11044; A6402 ==

== ENCOUNTER 2017-03-22 09:47 | Outpatient (CLI) | payer MEDICARE, OTHER | END 2017-03-22 23:59 | disposition home health service (06) | LOC: WOU 09:47 | PROVIDERS: ATTEND Podiatrist Foot & Ankle Surgery | DX: E11.621 Type 2 diabetes mellitus with foot ulcer (principal); L97.524 Non-pressure chronic ulcer of other part of left foot with necrosis of bone; E11.42 Type 2 diabetes mellitus with diabetic polyneuropathy; E11.69 Type 2 diabetes mellitus with other specified complication; M86.172 Other acute osteomyelitis, left ankle and foot; M20.5X1 Other deformities of toe(s) (acquired), right foot; Z89.411 Acquired absence of right great toe; Z91.19 Patient's noncompliance with other medical treatment and regimen; F17.200 Nicotine dependence, unspecified, uncomplicated | CPT/HCPCS: 11044; A6402 ×2 ==

== ENCOUNTER 2017-03-26 08:36 | Outpatient (CLI) | payer MEDICARE, OTHER | END 2017-03-26 23:59 | disposition home health service (06) | LOC: WOU 08:36 | PROVIDERS: ATTEND Podiatrist Foot & Ankle Surgery | DX: E11.621 Type 2 diabetes mellitus with foot ulcer (principal); L97.524 Non-pressure chronic ulcer of other part of left foot with necrosis of bone; L97.521 Non-pressure chronic ulcer of other part of left foot limited to breakdown of skin; E11.42 Type 2 diabetes mellitus with diabetic polyneuropathy; Z89.411 Acquired absence of right great toe; M20.5X2 Other deformities of toe(s) (acquired), left foot; E11.69 Type 2 diabetes mellitus with other specified complication; M86.172 Other acute osteomyelitis, left ankle and foot; F17.200 Nicotine dependence, unspecified, uncomplicated; Z91.19 Patient's noncompliance with other medical treatment and regimen | CPT/HCPCS: 11044; A6402 ==

== ENCOUNTER 2017-03-29 09:15 | Outpatient (CLI) | payer MEDICARE, OTHER | END 2017-03-29 23:59 | disposition home health service (06) | LOC: WOU 09:15 | PROVIDERS: ATTEND Podiatrist Foot & Ankle Surgery | DX: E11.621 Type 2 diabetes mellitus with foot ulcer (principal); L97.524 Non-pressure chronic ulcer of other part of left foot with necrosis of bone; L97.521 Non-pressure chronic ulcer of other part of left foot limited to breakdown of skin; E11.42 Type 2 diabetes mellitus with diabetic polyneuropathy; Z89.411 Acquired absence of right great toe; M20.5X1 Other deformities of toe(s) (acquired), right foot; M20.5X2 Other deformities of toe(s) (acquired), left foot; F17.200 Nicotine dependence, unspecified, uncomplicated; Z79.4 Long term (current) use of insulin; Z79.84 Long term (current) use of oral hypoglycemic drugs | CPT/HCPCS: 11044; A6402 ==

== ENCOUNTER 2017-04-02 09:32 | Outpatient (CLI) | payer MEDICARE, OTHER | END 2017-04-02 23:59 | disposition home health service (06) | LOC: WOU 09:32 | PROVIDERS: ATTEND Podiatrist Foot & Ankle Surgery | DX: E11.621 Type 2 diabetes mellitus with foot ulcer (principal); L97.524 Non-pressure chronic ulcer of other part of left foot with necrosis of bone; L97.521 Non-pressure chronic ulcer of other part of left foot limited to breakdown of skin; E11.42 Type 2 diabetes mellitus with diabetic polyneuropathy; Z89.411 Acquired absence of right great toe; M20.5X2 Other deformities of toe(s) (acquired), left foot; E11.69 Type 2 diabetes mellitus with other specified complication; M86.172 Other acute osteomyelitis, left ankle and foot; Z79.4 Long term (current) use of insulin; Z79.84 Long term (current) use of oral hypoglycemic drugs | CPT/HCPCS: 11044; A6402 ==

== ENCOUNTER 2017-04-09 08:41 | Outpatient (CLI) | payer MEDICARE, OTHER | END 2017-04-09 23:59 | disposition home health service (06) | LOC: WOU 08:41 | PROVIDERS: ATTEND Podiatrist Foot & Ankle Surgery | DX: E11.621 Type 2 diabetes mellitus with foot ulcer (principal); L97.524 Non-pressure chronic ulcer of other part of left foot with necrosis of bone; L97.521 Non-pressure chronic ulcer of other part of left foot limited to breakdown of skin; E11.42 Type 2 diabetes mellitus with diabetic polyneuropathy; Z89.411 Acquired absence of right great toe; M20.5X1 Other deformities of toe(s) (acquired), right foot; E11.69 Type 2 diabetes mellitus with other specified complication; M86.172 Other acute osteomyelitis, left ankle and foot; Z79.4 Long term (current) use of insulin; Z79.84 Long term (current) use of oral hypoglycemic drugs | CPT/HCPCS: 11042; 11044; A6402 ==

== ENCOUNTER 2017-04-16 08:35 | Outpatient (CLI) | payer MEDICARE, OTHER | END 2017-04-16 23:59 | disposition home health service (06) | LOC: WOU 08:35 | PROVIDERS: ATTEND Podiatrist Foot & Ankle Surgery | DX: E11.621 Type 2 diabetes mellitus with foot ulcer (principal); L97.524 Non-pressure chronic ulcer of other part of left foot with necrosis of bone; E11.42 Type 2 diabetes mellitus with diabetic polyneuropathy; M20.5X1 Other deformities of toe(s) (acquired), right foot; M20.5X2 Other deformities of toe(s) (acquired), left foot; E11.69 Type 2 diabetes mellitus with other specified complication; M86.172 Other acute osteomyelitis, left ankle and foot | CPT/HCPCS: 11042; A6402 ==

== ENCOUNTER 2017-04-19 08:30 | Outpatient (CLI) | payer MEDICARE, OTHER | END 2017-04-19 23:59 | disposition home health service (06) | LOC: WOU 08:30 | PROVIDERS: ATTEND Podiatrist Foot & Ankle Surgery | DX: E11.621 Type 2 diabetes mellitus with foot ulcer (principal); L97.524 Non-pressure chronic ulcer of other part of left foot with necrosis of bone; E11.42 Type 2 diabetes mellitus with diabetic polyneuropathy; M20.5X1 Other deformities of toe(s) (acquired), right foot; M20.5X2 Other deformities of toe(s) (acquired), left foot; E11.69 Type 2 diabetes mellitus with other specified complication; M86.172 Other acute osteomyelitis, left ankle and foot; Z79.4 Long term (current) use of insulin; Z79.82 Long term (current) use of aspirin; Z79.899 Other long term (current) drug therapy | CPT/HCPCS: 15275; A6402 ==

== ENCOUNTER 2017-04-26 08:42 | Outpatient (CLI) | payer MEDICARE, OTHER | END 2017-04-26 23:59 | disposition home health service (06) | LOC: WOU 08:42 | PROVIDERS: ATTEND Podiatrist Foot & Ankle Surgery | DX: E11.621 Type 2 diabetes mellitus with foot ulcer (principal); L97.524 Non-pressure chronic ulcer of other part of left foot with necrosis of bone | CPT/HCPCS: 15275; A6209; A6402; Q4110 ×2 ==

== ENCOUNTER 2017-05-04 22:32 | Inpatient (IN) | payer MEDICARE, OTHER ==
[~2017-05-04] VITALS: Ht 160 cm; Wt 82.6 kg
--- NOTE | 2017-05-04 22:45 | NUR ---
TO BED 4 BIB DAUGHTER C/O HEADACHE, DIZZINESS, BACK PAIN SINCE SUNDAY. PT WAS SEEN AT [facility] ON SUNDAY AND WAS ALSO SEEN YESTERDAY. PT AAOX4 NO ACUTE DISTRESS NOTED, RESP EVEN AND UNLABORED. PLACE PT ON CARDIAC MONITORING, CONTINUOUS POX. ER MD AT BEDSIDE TO EVAL PT WITH ORDERS RECEIVED. WILL CARRY OUT ORDERS.
--- NOTE | 2017-05-04 22:58 | NUR ---
CALLED [facility] AND FAXED AUTHORIZATION REQUESTING PATIENT'S MEDICAL RECORDS.
[2017-05-04] MEDS ORDERED: ASPIRIN 81 MG TAB.CHEW PO ONE (23:00)
[2017-05-04] MEDS ORDERED: IV NS 0.9% 1,000 ML BAG IV ONE (23:00)
[2017-05-04] MEDS ORDERED: ONDANSETRON HCL/PF 4 MG/2 ML VIAL IVP ONE (23:00)
[2017-05-04 23:13] LABS: BASOPHILS # (AUTO) 0.1 /CMM (0.0-0.2); BASOPHILS % (AUTO) 0.7 % (0.0-2.0); HEMATOCRIT 36 % (39-51); HEMOGLOBIN 11.8 g/dL (13.5-17.5); LYMPHOCYTES # (AUTO) 0.9 /CMM (0.8-4.8); LYMPHOCYTES % (AUTO) 7.7 % (20.0-44.0); MEAN CORPUSCULAR HEMOGLOBIN 27 PG (26.0-33.0); MEAN CORPUSCULAR HGB CONC 33 g/dl (31.0-36.0); MEAN CORPUSCULAR VOLUME 82 fL (80-96); MONOCYTES # (AUTO) 0.7 /CMM (0.1-1.30); MONOCYTES % (AUTO) 5.6 % (2.0-12.0); NEUTROPHILS # (AUTO) 10.6 /CMM (1.8-8.9); PLATELET COUNT (AUTO) 753 /CMM (150-450); RDW COEFFICIENT OF VARIATION 15.1 (11.5-15.0); RED BLOOD CELL COUNT(AUTO) 4.36 MIL/uL (4.5-6.0); WHITE BLOOD COUNT (AUTO) 12.3 K/uL (4.3-11.0)
[2017-05-04 23:31] LABS: TROPONIN I < 0.017 ng/mL (0.00-0.056)
[2017-05-04 23:38] LABS: INR 0.99 (0.87-1.13); PROTHROMBIN TIME 10.6 SECS (9.5-12.7)
[2017-05-05] VITALS (7 sets, daily range): BP systolic 135–154; BP diastolic 70–85
[2017-05-05] MEDS ORDERED: LEVOFLOXACIN 750 MG /D5W 150ML PIGGYBACK IV ONE
[2017-05-05] MEDS ORDERED: PIPERACILLIN /TAZOBACTAM 3.375 G in IV D5W 50 ML IV ONE ×2
--- NOTE | 2017-05-05 00:43 | NUR ---
URINE SAMPLE COLLECTED.
[2017-05-05 01:02] LABS: ALKALINE PHOSPHATASE 114 U/L (46-116); ASPARTATE AMINOTRANSFERASE 17 U/L (15-37); BILIRUBIN,TOTAL 0.5 mg/dL (0.2-1.0); CARBON DIOXIDE 23 mmol/L (21-32); CHLORIDE 97 mmol/L (98-107); POTASSIUM 4.4 mmol/L (3.5-5.1); SODIUM SERUM 134 mmol/L (136-145); TOTAL PROTEIN, SERUM 9.1 g/dL (6.4-8.2)
[2017-05-05 01:22] LABS: GLUCOSE 232 mg/dL (74-106)
[2017-05-05 01:23] LABS: ALANINE AMINOTRANSFERASE 21 U/L (12-78); ALBUMIN 3.6 g/dL (3.4-5.0); BILIRUBIN,DIRECT 0.1 mg/dL (0.0-0.2); CREATININE 1.1 mg/dL (0.6-1.3)
[2017-05-05 01:24] LABS: UREA NITROGEN, BLOOD 0 mg/dL (7-18)
--- NOTE | 2017-05-05 01:54 | NUR ---
REPORT CALLED TO GED INSTRUCTORCARI SANCHEZ. PENDING HOSPITAL ADMISSION.
[2017-05-05] MEDS ORDERED: LEVOFLOXACIN 750 MG /D5W 150ML 150 ML IV ONE (01:59)
[2017-05-05 02:08] LABS: APPEARANCE,URINE YELLOW (CLEAR); COLOR,URINE CLEAR (YELLOW); PH,URINE 7.5 (5.0-8.0); PROTEIN,URINE 3+ mg/dl (NEGATIVE); UGLUCOSE 2+ mg/dL (NEGATIVE)
[2017-05-05 02:09] LABS: BILIRUBIN,URINE 2+ (NEGATIVE); BLOOD, URINE NEGATIVE Ery/uL (NEGATIVE); KETONES,URINE NEGATIVE (NEGATIVE); LEUKOCYTE ESTERASE ,URINE TRACE (NEGATIVE); NITRITE, URINE NEGATIVE (NEGATIVE); UROBILINOGEN,URINE 0.2 EU/dL (0.2)
[2017-05-05 02:11] LABS: BACTERIA,URINE None seen /HPF (None Seen); RBC,URINE 0-2 /HPF (0-2); SQUAMOUS EPITHELIAL CELL,UR Few /HPF (None Seen); URINE AMORPHOUS URATE Few /HPF (None Seen); WBC,URINE NONE SEEN /HPF (0-3)
[2017-05-05] MEDS ORDERED: ONDANSETRON HCL/PF 4 MG/2 ML VIAL ONE ×2 (03:12→03:13)
--- NOTE | 2017-05-05 03:16 | NUR ---
2ND CALL TO [facility] DR. TOSCANO ON PHONE W/ DR. CHEN.
--- NOTE | 2017-05-05 03:20 | NUR ---
ER SPOKE TO DR. DORCAS GRANADOS PT ADMISSION. WILL TRANSPORT PT VIA ACLS PROTOCOL.
--- NOTE | 2017-05-05 03:26 | NUR ---
TELE/RN NOTES RECEIVED PT. FROM ER VIA JOSÉ. PT. IS AWAKE, ALERT AND ORIENTED X3. BREATHING EVEN AND UNLABORED ON ROOM AIR. NO SOB, RESPIRATORY DISTRESS NOTED AT THIS TIME. PT. COMPLAINING OF PAIN 3/10 IN HIS BACK. ORIENTED PT. TO ROOM. PLACED EXTERNAL RENAL SOCIAL WORKER ON PT. CURRENT RHYTHM = SINUS RHYTHM HR 90. PT. WITH LEFT AC 18 GAUGE PERIPHERAL IV PRESENT, PATENT AND INTACT. PT. STILL RECEIVING LEVAQUIN ANTIBIOTIC IV FROM THE ER. BED LOCKED AND IN LOWEST POSITION, CALL LIGHT WITHIN REACH, SIDE RAILS UP X2, BED ALARM ON, AWAITING ADMITTING ORDERS. WILL CONTINUE TO MONITOR.
[2017-05-05] MEDS ORDERED: ONDANSETRON HCL/PF 4 MG/2 ML VIAL IV ONE (03:30)
--- NOTE | 2017-05-05 04:10 | NUR ---
TELE/RN NOTES PT. STATES HE TAKES MEDICATION AT HOME BUT DOES NOT KNOW THE NAMES OR DOSAGES OF THE MEDICATIONS. PT. STATED A FAMILY MEMBER WILL BRING A LIST OF HIS CURRENT MEDICATIONS LATER TODAY.
--- NOTE | 2017-05-05 05:13 | NUR ---
TELE/RN NOTES CALLED [facility] BEND[facility] HAND AND NOTIFIED MD TOSCANO STILL AWAITING ADMITTING ORDERS. MD TOSCANO AWARE. WILL CONTINUE TO WAIT FOR ADMITTING ORDERS.
[2017-05-05] MEDS ORDERED: LORAZEPAM INJ 2 MG/ML VIAL IVP PRN (06:00)
[2017-05-05] MEDS ORDERED: IV NS 0.9% 1,000 ML BAG IV ONE (06:00)
[2017-05-05] MEDS ORDERED: DEXTROSE 50%-WATER 50 ML DISP.SYRIN IV PRN (06:00)
[2017-05-05] MEDS ORDERED: ENOXAPARIN SODIUM 30 MG/0.3 ML DISP.SYRIN SQ SCH (06:00)
[2017-05-05] MEDS ORDERED: VANCOMYCIN 1 GM in IV D5W 250 ML IV ONE ×3 (06:00)
--- NOTE | 2017-05-05 06:23 | NUR ---
MS/RN NOTES CALLED [facility] MOTION PICTURE PRINTER TO CLARIFY ORDERS FOR SEPSIS FLUID BOLUS AND VANCOMYCIN ANTIBIOTIC. DID NOT ADMINISTER TO PT. 0600 VANCOMYCIN ORDERED BECAUSE PT. RECEIVED VANCOMYCIN 1 GRAM IN ER [address] TOSCANO DID NOT ANSWER WHEN [facility] CALLED. [facility] STATED THEY WOULD PAGE HER AGAIN. WAITING TO HEAR BACK FROM DR. TOSCANO. WILL CONTINUE TO MONITOR.
[2017-05-05] MEDS ORDERED: ENOXAPARIN SODIUM 30 MG/0.3 ML DISP.SYRIN ONE (06:26)
--- NOTE | 2017-05-05 07:03 | NUR ---
TELE/RN NOTES PT. IS LYING IN BED AWAKE, ALERT AND ORIENTED X3. BREATHING EVEN AND UNLABORED ON ROOM AIR. NO SOB, RESPIRATORY DISTRESS OR PAIN NOTED AT THIS TIME. PT. WITH EXTERNAL ENGINEERING COORDINATOR PRESENT AND INTACT PT. CURRENT RHYTHM = SINUS RHYTHM HR 86. PT. WITH LEFT AC 18 GAUGE PERIPHERAL IV PRESENT, PATENT AND INTACT. ALL PT. NEEDS MET. BED LOCKED AND IN LOWEST POSITION, CALL LIGHT WITHIN REACH, SIDE RAILS UP X2, BED ALARM ON. STILL AWAITING CALL FROM DR. TOSCANO WILL ENDORSE TO DAYSHIFT NURSE TO FOLLOW UP WITH CLARIFICATION OF ORDERS. WILL ENDORSE TO DAYSHIFT NURSE FOR CONTINUITY OF CARE.
--- NOTE | 2017-05-05 08:08 | NUR ---
Pain per patient in the low to mid back bilaterally "500/10". Dry heaves at this time. Pt notes pain in left foot on and off. Not at this time. Patient says he has had nausea for one week. Patient in position left side lying.
[2017-05-05] MEDS: BLOOD SUGAR DIAGNOSTIC 1 EACH STRIP VI SCH ×4 (08:14→21:03)
[2017-05-05] MEDS: ONDANSETRON HCL/PF 4 MG/2 ML VIAL IVP PRN ×2 (08:20→14:20)
[2017-05-05] MEDS: methylPREDNISolone SOD SUCC 125 MG/2ML VIAL IV SCH ×3 (08:20→17:04)
[2017-05-05] MEDS: MORPHINE SULFATE INJ 2 MG/ML DISP.SYRIN IV PRN (08:20)
[2017-05-05] MEDS ORDERED: FEE PK DOSING 1 MIN EA MC ONE (08:34)
[2017-05-05] MEDS: PANTOPRAZOLE 40 MG VIAL IV SCH (08:37)
[2017-05-05] MEDS: INSULIN REGULAR, HUMAN 100 UNIT/ML 3 ML VIAL SQ PRN ×3 (08:51→18:16)
[2017-05-05 10:26] LABS: IRON, SERUM 40 ug/dl (50-175); TOTAL IRON BINDING CAPACITY 290 ug/dl (250-450)
[2017-05-05] MEDS ORDERED: PIOG15TA3 PO (11:18)
[2017-05-05] MEDS ORDERED: ASPI-991 PO (11:18)
[2017-05-05] MEDS: MEROPENEM 1 G in IV NS 0.9% 100 ML IV SCH ×2 (13:22→21:02)
--- NOTE | 2017-05-05 13:35 | NUR ---
Patient says he feels dizzy and nauseated. Second episode of dry heaves today. Clear mucous output.
[2017-05-05] MEDS: METOCLOPRAMIDE HCL 10 MG/2 ML VIAL IV SCH ×2 (15:22→21:02)
--- NOTE | 2017-05-05 15:24 | NUR ---
Per pt family pt feeling increased dizziness and nausea. Given scheduled reglan medication at this time.
--- NOTE | 2017-05-05 18:54 | NUR ---
Handoff report to night nurse.
--- NOTE | 2017-05-05 19:30 | NUR ---
RN NOTES RECEIVED PT. AWAKE ON BED, A/OX3, IRISH/SERBIAN SPEAKING, SR ON TELE MONITOR HR-94, DENIES ANY PAIN, NO SOB, CALL LIGHT WITHIN REACH, SIDERAILS UPX2 CONTINUE TO MONITOR
[2017-05-05] MEDS: *INSULIN REGULAR(HUMULIN R)HUM 100 UNIT/ML VIAL SQ PRN (21:49)
[2017-05-06] VITALS (8 sets, daily range): BP systolic 136–155; BP diastolic 53–88
[2017-05-06] MEDS: MEROPENEM 1 G in IV NS 0.9% 100 ML IV SCH ×3 (05:09→21:19)
[2017-05-06] MEDS: METOCLOPRAMIDE HCL 10 MG/2 ML VIAL IV SCH ×3 (05:09→21:19)
--- NOTE | 2017-05-06 06:30 | NUR ---
RN NOTES AWAKE, DENIES PAIN, MIDLINE IN PLACE, MORNING CARE RENDERED, CALL LIGHT WITHIN REACH, SIDERAILS UPX2, PT NEEDS ATTENDED. ENDORSED TO DAYSHIFT NURSE FOR CONTINUITY OF CARE
[2017-05-06 06:42] LABS: BASOPHILS % (AUTO) 0.1 % (0.0-2.0); HEMATOCRIT 35 % (39-51); HEMOGLOBIN 11.5 g/dL (13.5-17.5); LYMPHOCYTES # (AUTO) 0.7 /CMM (0.8-4.8); LYMPHOCYTES % (AUTO) 4.9 % (20.0-44.0); MEAN CORPUSCULAR HEMOGLOBIN 28 PG (26.0-33.0); MEAN CORPUSCULAR HGB CONC 33 g/dl (31.0-36.0); MEAN CORPUSCULAR VOLUME 83 fL (80-96); MONOCYTES # (AUTO) 0.5 /CMM (0.1-1.30); MONOCYTES % (AUTO) 3.5 % (2.0-12.0); NEUTROPHILS # (AUTO) 12.7 /CMM (1.8-8.9); NEUTROPHILS % (AUTO) 91.5 % (43.0-81.0); PLATELET COUNT (AUTO) 676 /CMM (150-450); RED BLOOD CELL COUNT(AUTO) 4.14 MIL/uL (4.5-6.0); WHITE BLOOD COUNT (AUTO) 13.8 K/uL (4.3-11.0)
[2017-05-06 06:49] LABS: BILIRUBIN,TOTAL 0.3 mg/dL (0.2-1.0); CALCIUM, SERUM 8.8 mg/dL (8.5-10.1); CREATININE 0.8 mg/dL (0.6-1.3); POTASSIUM 4.3 mmol/L (3.5-5.1); TOTAL PROTEIN, SERUM 7.9 g/dL (6.4-8.2)
[2017-05-06 06:50] LABS: INR 0.96 (0.87-1.13); PROTHROMBIN TIME 10.3 SECS (9.5-12.7)
[2017-05-06 06:57] LABS: CREATINE KINASE MB 0.3 ng/mL (0-3.6)
[2017-05-06] MEDS: INSULIN REGULAR, HUMAN 100 UNIT/ML 3 ML VIAL SQ PRN ×2 (06:57→13:27)
--- NOTE | 2017-05-06 07:00 | NUR ---
RN NOTES COMPLAINED OF NAUSEA/VOMITING- ZOFRAN 4 MG IV GIVEN ORDERED, V/S STABLE
[2017-05-06] MEDS: ONDANSETRON HCL/PF 4 MG/2 ML VIAL IVP PRN ×3 (07:03→19:43)
[2017-05-06] MEDS: BLOOD SUGAR DIAGNOSTIC 1 EACH STRIP VI SCH ×4 (07:40→21:57)
[2017-05-06] MEDS: PANTOPRAZOLE 40 MG VIAL IV SCH (08:58)
[2017-05-06] MEDS: methylPREDNISolone SOD SUCC 125 MG/2ML VIAL IV SCH ×3 (08:58→18:00)
[2017-05-06] MEDS: ENOXAPARIN SODIUM 40 MG/0.4 ML DISP.SYRIN SQ SCH (09:03)
--- NOTE | 2017-05-06 09:10 | NUR ---
INITIAL CORPORATE LIBRARIAN NOTES RN RECEIVED PT LYING IN BED SLEEPING UPON INTRODUCTION PATIENT IS AWAKE, ALERT AND ORIENTED X3. BREATHING EVEN AND UNLABORED ON ROOM AIR. NO SOB, RESPIRATORY DISTRESS OR PAIN NOTED AT THIS TIME. PT. ON TELE CURRENT RHYTHM = SINUS RHYTHM HR 89 PT. PT HAS LEFT AC 18 GAUGE PERIPHERAL IV PRESENT, PATENT AND INTACT. PT BED LOCKED AND IN LOWEST POSITION, CALL LIGHT WITHIN REACH, SIDE RAILS UP X2, BED ALARM ON.RN WILL CONTINUE TO FOLLOW THROUGHOUT THE DAY
[2017-05-06] MEDS: *INSULIN REGULAR(HUMULIN R)HUM 100 UNIT/ML VIAL SQ PRN ×2 (18:03→22:00)
--- NOTE | 2017-05-06 19:06 | NUR ---
RN CLOSING NOTE PATIENT STABLE WITHOUT COMPLAINT OFF AND ON NAUSEA AND VOMITING. PATIENT HAS BEEN GIVEN ALL MEDICATION - ORDERED NO ISSUES NOTED NO SOB , WILL ENDORSE TO PM RN FOR CONTINUATION OF CARE . PATIENT HAS DEBRIDEMENT PERFORMED TODAY ON LEFT FOOT WOUND NO COMPLAINTS OF PAIN OR DISCOMFORT
[2017-05-06] MEDS: ACETAMINOPHEN 325 MG TABLET PO PRN (19:38)
--- NOTE | 2017-05-06 19:49 | NUR ---
MS RN NOTE PT IN BED AWAKE. A/O X 3, NO SOB NOTED. C/O NAUSEA AND HEADACHE 10/27, ZOFRAN 4 MG IVP GIVEN FOR NAUSEA AND TYLENOL 650 MG PO GIVEN FOR HEADACHE. SIDE RAILS UP X 2 AND CALL LIGHT WITHIN REACH. FAMILY AT BED SIDE. CONTINUE TO MONITOR HIM.
[2017-05-07] VITALS (7 sets, daily range): BP systolic 138–158; BP diastolic 73–91
[2017-05-07] MEDS: METOCLOPRAMIDE HCL 10 MG/2 ML VIAL IV SCH ×3 (05:07→21:01)
[2017-05-07] MEDS: MEROPENEM 1 G in IV NS 0.9% 100 ML IV SCH ×3 (05:07→21:01)
[2017-05-07] MEDS: ONDANSETRON HCL/PF 4 MG/2 ML VIAL IVP PRN ×3 (05:12→17:20)
--- NOTE | 2017-05-07 06:53 | NUR ---
MS RN NOTE PT IN BED ASLEEP, NO DISTRESS OR DISCOMFORT NOTED. DENIES PAIN. SUBSIDED NAUSEA. ALL NEEDS ATTENDED. SIDE RAILS UP X 2 AND CALL LIGHT WITHIN REACH. WILL ENDORSE TO DAY SHIFT NURSE FOR CONTINUE TO CARE.
[2017-05-07 06:58] LABS: BASOPHILS # (AUTO) 0.1 /CMM (0.0-0.2); BASOPHILS % (AUTO) 0.4 % (0.0-2.0); HEMATOCRIT 34 % (39-51); HEMOGLOBIN 11.4 g/dL (13.5-17.5); LYMPHOCYTES % (AUTO) 6.2 % (20.0-44.0); MEAN CORPUSCULAR HEMOGLOBIN 27 PG (26.0-33.0); MEAN CORPUSCULAR HGB CONC 33 g/dl (31.0-36.0); MEAN CORPUSCULAR VOLUME 82 fL (80-96); MONOCYTES # (AUTO) 0.8 /CMM (0.1-1.30); MONOCYTES % (AUTO) 5.1 % (2.0-12.0); NEUTROPHILS # (AUTO) 14.5 /CMM (1.8-8.9); NEUTROPHILS % (AUTO) 88.3 % (43.0-81.0); PLATELET COUNT (AUTO) 719 /CMM (150-450); RDW COEFFICIENT OF VARIATION 15.4 (11.5-15.0); RED BLOOD CELL COUNT(AUTO) 4.15 MIL/uL (4.5-6.0); WHITE BLOOD COUNT (AUTO) 16.5 K/uL (4.3-11.0)
[2017-05-07 07:17] LABS: CALCIUM, SERUM 8.5 mg/dL (8.5-10.1); CREATININE 0.9 mg/dL (0.6-1.3)
[2017-05-07] MEDS: BLOOD SUGAR DIAGNOSTIC 1 EACH STRIP VI SCH ×4 (07:48→21:06)
--- NOTE | 2017-05-07 07:55 | NUR ---
WOUND CARE CONSULT WOUND CONSULT RECEIVED. WOUND CARE WILL DEFER TREATMENT PLAN FOR LEFT FOOT ULCER TO DPM DR ZHAO AT THIS TIME. PATIENT WITH CURRENT JIMY AT 18. WILL SEE PRN.
[2017-05-07] MEDS: methylPREDNISolone SOD SUCC 125 MG/2ML VIAL IV SCH ×3 (08:52→16:09)
[2017-05-07] MEDS: ENOXAPARIN SODIUM 40 MG/0.4 ML DISP.SYRIN SQ SCH (08:53)
[2017-05-07] MEDS: *INSULIN REGULAR(HUMULIN R)HUM 100 UNIT/ML VIAL SQ PRN ×3 (08:57→21:06)
[2017-05-07] MEDS: PANTOPRAZOLE 40 MG VIAL IV SCH (08:58)
[2017-05-07] MEDS: ACETAMINOPHEN 325 MG TABLET PO PRN (09:01)
[2017-05-07] MEDS: CADEXOMER IODINE 40 GM TUBE TP SCH (09:01)
[2017-05-07] MEDS: INSULIN REGULAR, HUMAN 100 UNIT/ML 3 ML VIAL SQ PRN (11:20)
[2017-05-07] MEDS ORDERED: VANCOMYCIN 1 GM in IV D5W 250 ML IV SCH (15:00)
[2017-05-07] MEDS: LACTOBACILLUS RHAMNOSUS GG 1 EACH CAP.SPRINK PO SCH (16:09)
--- NOTE | 2017-05-07 16:35 | NUR ---
RN NOTE DR. MARVIN DUNNE MADE AWARE THAT PATIENT HAS 10/10 HEAD ACHE TODAY AND NAUSEA UNRELIEVED BY ZOFRAN. INFORMED DRRosa OF BP 158/91 AND WBC AND PLATELET RESULTS OF TODAY TRENDING UP. GAVE ON NEW TELEPHONE ORDER FOR NORCO 5/325 Q4 PRN FOR PAIN.
[2017-05-07] MEDS: HYDROCODONE/APAP 5/325MG 1 EACH TABLET PO PRN (17:21)
--- NOTE | 2017-05-07 18:37 | NUR ---
RN NOTE COLLABORATING WITH DR. WONG AND DR. CASTILLO REGARDING PATIENT'S HEAD ACHES AND NAUSEA. DR. CASTILLO GAVE ONE NEW VERBAL ORDER FOR HEAD CT W/O CONTRAST. DR. WONG AGREED
--- NOTE | 2017-05-07 18:55 | NUR ---
END OF SHIFT PATIENT RESTING IN BED- PRN MEDICATION SEMI-EFFECTIVE- MORE COMFORTABLE, VERBALIZING THANKS. AT BED SIDE. INFORMED CRIMINAL INTELLIGENCE ANALYST NURSE.
[2017-05-08] VITALS: BP 121/79
[2017-05-08] MEDS: VANCOMYCIN 0.75 GM in IV D5W 250 ML IV SCH ×3 (00:02→16:53)
[2017-05-08 04:00] VITALS: BP 134/64
[2017-05-08] MEDS: MEROPENEM 1 G in IV NS 0.9% 100 ML IV SCH ×3 (05:23→21:21)
[2017-05-08] MEDS: METOCLOPRAMIDE HCL 10 MG/2 ML VIAL IV SCH ×3 (05:23→21:21)
[2017-05-08] MEDS: MORPHINE SULFATE INJ 2 MG/ML DISP.SYRIN IV PRN ×4 (05:31→21:35)
[2017-05-08 06:33] LABS: BASOPHILS # (AUTO) 0.2 /CMM (0.0-0.2); HEMATOCRIT 35 % (39-51); HEMOGLOBIN 11.7 g/dL (13.5-17.5); LYMPHOCYTES % (AUTO) 7.2 % (20.0-44.0); MEAN CORPUSCULAR HEMOGLOBIN 28 PG (26.0-33.0); MEAN CORPUSCULAR HGB CONC 34 g/dl (31.0-36.0); MEAN CORPUSCULAR VOLUME 83 fL (80-96); MONOCYTES # (AUTO) 0.6 /CMM (0.1-1.30); MONOCYTES % (AUTO) 4.2 % (2.0-12.0); NEUTROPHILS # (AUTO) 12.7 /CMM (1.8-8.9); NEUTROPHILS % (AUTO) 87.6 % (43.0-81.0); PLATELET COUNT (AUTO) 712 /CMM (150-450); RDW COEFFICIENT OF VARIATION 15.4 (11.5-15.0); WHITE BLOOD COUNT (AUTO) 14.5 K/uL (4.3-11.0)
[2017-05-08 06:54] LABS: CALCIUM, SERUM 8.5 mg/dL (8.5-10.1); MAGNESIUM 2.2 mg/dL (1.8-2.4); PHOSPHORUS 2.9 mg/dL (2.5-4.9); POTASSIUM 4.2 mmol/L (3.5-5.1)
[2017-05-08 08:00] VITALS: BP_SYST 162; BP_DIAS 54; BP_DIAS 85
[2017-05-08] MEDS: PANTOPRAZOLE 40 MG VIAL IV SCH (08:45)
[2017-05-08] MEDS: BLOOD SUGAR DIAGNOSTIC 1 EACH STRIP VI SCH ×4 (08:45→21:34)
[2017-05-08] MEDS: ONDANSETRON HCL/PF 4 MG/2 ML VIAL IVP PRN ×2 (08:48→16:53)
[2017-05-08] MEDS: LACTOBACILLUS RHAMNOSUS GG 1 EACH CAP.SPRINK PO SCH ×2 (08:57→16:53)
[2017-05-08] MEDS: methylPREDNISolone SOD SUCC 125 MG/2ML VIAL IV SCH ×2 (08:57→12:59)
[2017-05-08] MEDS: ENOXAPARIN SODIUM 40 MG/0.4 ML DISP.SYRIN SQ SCH (09:10)
[2017-05-08] MEDS: INSULIN REGULAR, HUMAN 100 UNIT/ML 3 ML VIAL SQ PRN ×3 (09:11→17:11)
[2017-05-08 12:00] VITALS: BP 143/74
[2017-05-08] MEDS: CADEXOMER IODINE 40 GM TUBE TP SCH (13:00)
[2017-05-08 16:00] VITALS: BP 121/76
[2017-05-08 18:26] LABS: URINE SODIUM, RANDOM 64 mmol/l (40-220)
[2017-05-08 18:34] LABS: OSMOLALITY,URINE 612 mOS/kg (340-1090)
--- NOTE | 2017-05-08 19:05 | NUR ---
MS RN OPENING NOTES RECEIVED REPORT FROM ITZEL ALCALA. PATIENT A/A/O X4, ABLE TO MAKE NEEDS KNOWN. BREATHING EVEN AND UNLABORED. DENIES SOB OR DIFFICULTY BREATHING. PULSES PRESENT. RIGHT UPPER ARM MIDLINE PATENT ON TKO W/ DRESSING CDI. DENIES ANY PAIN OR DISCOMFORT @ THIS TIME. SAFETY MEASURES IN PLACE W/ SIDE RAILS UP, BED LOCKED IN LOWEST POSITION, CALL LIGHT WITHIN REACH. @ BEDSIDE. WILL CONTINUE TO MONITOR.
[2017-05-08 20:00] VITALS: BP 141/79
[2017-05-08] MEDS: POLYETHYLENE GLYCOL 3350 17 GM POWD.PACK PO SCH (21:21)
[2017-05-08] MEDS: *INSULIN REGULAR(HUMULIN R)HUM 100 UNIT/ML VIAL SQ PRN (21:39)
[2017-05-09] MEDS: VANCOMYCIN 0.75 GM in IV D5W 250 ML IV SCH ×2 (00:34→08:06)
[2017-05-09 04:00] VITALS: BP 157/87
[2017-05-09] MEDS: METOCLOPRAMIDE HCL 10 MG/2 ML VIAL IV SCH ×3 (04:17→21:26)
[2017-05-09] MEDS: MEROPENEM 1 G in IV NS 0.9% 100 ML IV SCH ×3 (04:17→21:26)
[2017-05-09] MEDS: MORPHINE SULFATE INJ 2 MG/ML DISP.SYRIN IV PRN ×4 (04:24→21:25)
--- NOTE | 2017-05-09 05:00 | NUR ---
RN NOTES PATIENT REFUSED MORNING CARE AND DRESSING CHANGE OF LEFT FOOT. PER PATIENT, HE WANTS TO WAIT LEAVE IT ALONE AND WAIT FOR THE DOCTOR TO LOOK AT IT.
[2017-05-09 06:47] LABS: BASOPHILS # (AUTO) 0.1 /CMM (0.0-0.2); BASOPHILS % (AUTO) 0.8 % (0.0-2.0); HEMATOCRIT 36 % (39-51); HEMOGLOBIN 11.8 g/dL (13.5-17.5); LYMPHOCYTES % (AUTO) 13.7 % (20.0-44.0); MEAN CORPUSCULAR HEMOGLOBIN 28 PG (26.0-33.0); MEAN CORPUSCULAR HGB CONC 33 g/dl (31.0-36.0); MEAN CORPUSCULAR VOLUME 83 fL (80-96); MONOCYTES % (AUTO) 6.5 % (2.0-12.0); NEUTROPHILS # (AUTO) 11.8 /CMM (1.8-8.9); PLATELET COUNT (AUTO) 685 /CMM (150-450); RDW COEFFICIENT OF VARIATION 15.1 (11.5-15.0); RED BLOOD CELL COUNT(AUTO) 4.29 MIL/uL (4.5-6.0)
[2017-05-09 06:51] LABS: CALCIUM, SERUM 8.4 mg/dL (8.5-10.1); CREATININE 0.9 mg/dL (0.6-1.3); MAGNESIUM 2.2 mg/dL (1.8-2.4); PHOSPHORUS 2.6 mg/dL (2.5-4.9); POTASSIUM 3.7 mmol/L (3.5-5.1)
[2017-05-09 06:53] LABS: THYROID STIMULATING HORMONE 0.386 uIU/mL (0.358-3.74); URIC ACID 3.3 mg/dL (2.6-7.2)
[2017-05-09 08:00] VITALS: BP 153/87
[2017-05-09] MEDS: PANTOPRAZOLE 40 MG VIAL IV SCH (08:06)
[2017-05-09] MEDS: LACTOBACILLUS RHAMNOSUS GG 1 EACH CAP.SPRINK PO SCH ×2 (08:06→17:41)
[2017-05-09] MEDS: BLOOD SUGAR DIAGNOSTIC 1 EACH STRIP VI SCH ×4 (08:06→21:26)
[2017-05-09] MEDS: DOCUSATE SODIUM 100 MG CAPSULE PO SCH ×2 (08:14→17:41)
[2017-05-09] MEDS: ENOXAPARIN SODIUM 40 MG/0.4 ML DISP.SYRIN SQ SCH (08:16)
[2017-05-09] MEDS: INSULIN REGULAR, HUMAN 100 UNIT/ML 3 ML VIAL SQ PRN ×3 (08:16→17:44)
[2017-05-09] MEDS: CADEXOMER IODINE 40 GM TUBE TP SCH (10:25)
[2017-05-09] MEDS: ONDANSETRON HCL/PF 4 MG/2 ML VIAL IVP PRN ×2 (10:25→17:45)
[2017-05-09] MEDS: VANCOMYCIN 1 GM in IV D5W 250 ML IV SCH ×2 (14:01→22:35)
[2017-05-09 16:00] VITALS: BP 117/66
--- NOTE | 2017-05-09 19:05 | NUR ---
MS RN OPENING NOTES RECEIVED REPORT FROM ITZEL ALCALA. PATIENT A/A/O X4, ABLE TO MAKE NEEDS KNOWN. BREATHING EVEN AND UNLABORED. DENIES SOB OR DIFFICULTY BREATHING. PULSES PRESENT. RIGHT UPPER ARM MIDLINE PATENT ON TKO W/ DRESSING CDI. DENIES ANY PAIN OR DISCOMFORT @ THIS TIME. SAFETY MEASURES IN PLACE W/ SIDE RAILS UP, BED LOCKED IN LOWEST POSITION, CALL LIGHT WITHIN REACH. 7 GRANDSON @ BEDSIDE. WILL CONTINUE TO MONITOR.
[2017-05-09 20:00] VITALS: BP 149/90
[2017-05-09] MEDS: POLYETHYLENE GLYCOL 3350 17 GM POWD.PACK PO SCH (21:35)
[2017-05-09] MEDS: *INSULIN REGULAR(HUMULIN R)HUM 100 UNIT/ML VIAL SQ PRN (21:35)
--- NOTE | 2017-05-09 22:00 | NUR ---
RN NOTES PATIENT REFUSED ENEMA @ THIS TIME W/ RISKS AND BENEFITS EXPLAINED. WILL OFFER AGAIN LATER.
[2017-05-10 04:00] VITALS: BP 134/84
--- NOTE | 2017-05-10 04:00 | NUR ---
RN NOTES PATIENT REFUSED ENEMA AGAIN @ THIS TIME W/ RISKS AND BENEFITS EXPLAINED.
[2017-05-10] MEDS: MEROPENEM 1 G in IV NS 0.9% 100 ML IV SCH ×2 (04:37→12:06)
[2017-05-10] MEDS: METOCLOPRAMIDE HCL 10 MG/2 ML VIAL IV SCH ×3 (04:37→20:59)
[2017-05-10] MEDS: MORPHINE SULFATE INJ 2 MG/ML DISP.SYRIN IV PRN (04:47)
[2017-05-10] MEDS: VANCOMYCIN 1 GM in IV D5W 250 ML IV SCH ×2 (05:49→12:54)
[2017-05-10 06:37] LABS: BASOPHILS % (AUTO) 0.1 % (0.0-2.0); EOSINOPHILS # (AUTO) 0.2 /CMM (0.0-0.7); EOSINOPHILS % (AUTO) 1.7 % (0.0-6.0); HEMATOCRIT 36 % (39-51); HEMOGLOBIN 12.2 g/dL (13.5-17.5); LYMPHOCYTES # (AUTO) 1.9 /CMM (0.8-4.8); LYMPHOCYTES % (AUTO) 16.8 % (20.0-44.0); MEAN CORPUSCULAR HEMOGLOBIN 28 PG (26.0-33.0); MEAN CORPUSCULAR HGB CONC 34 g/dl (31.0-36.0); MEAN CORPUSCULAR VOLUME 82 fL (80-96); MONOCYTES # (AUTO) 0.9 /CMM (0.1-1.30); MONOCYTES % (AUTO) 7.8 % (2.0-12.0); NEUTROPHILS # (AUTO) 8.4 /CMM (1.8-8.9); NEUTROPHILS % (AUTO) 73.6 % (43.0-81.0); PLATELET COUNT (AUTO) 643 /CMM (150-450); RDW COEFFICIENT OF VARIATION 15.6 (11.5-15.0); RED BLOOD CELL COUNT(AUTO) 4.42 MIL/uL (4.5-6.0); WHITE BLOOD COUNT (AUTO) 11.4 K/uL (4.3-11.0)
--- NOTE | 2017-05-10 06:43 | NUR ---
MS RN CLOSING NOTES PATIENT ASLEEP IN BED. NAUSEA AND PAIN CONTROLLED. NO EPISODES OF VOMITING. MIDLINE REMAINED PATENT W/ DRESSING CDI. REFUSED ENEMA X2 STILL W/ NO BM. NO SIGNIFICANT CHANGES DURING SHIFT. WILL ENDORSE RON TO AM NURSE.
[2017-05-10 07:06] LABS: CALCIUM, SERUM 8.4 mg/dL (8.5-10.1); CREATININE 0.9 mg/dL (0.6-1.3); PHOSPHORUS 3.1 mg/dL (2.5-4.9); POTASSIUM 3.9 mmol/L (3.5-5.1)
--- NOTE | 2017-05-10 07:30 | NUR ---
RN AMANDA RECEIVED PATIENT AWAKE LYING ON BED ALERT X 3 BLOOD PRESSURE IS ELEVATED, NO UNTOWARD SYMPTOM SEEN COOPERATIVE, HE REFUSED STOOL SOFTER MONITORED BLOOD SUGAR PER MD ORDER WITH DRESSING AT HIS RIGHT FOOT, DRESSING DONE BY
[2017-05-10 07:52] VITALS: BP 151/90
[2017-05-10] MEDS: BLOOD SUGAR DIAGNOSTIC 1 EACH STRIP VI SCH ×4 (07:56→21:03)
[2017-05-10 08:00] VITALS: BP 151/94
[2017-05-10] MEDS: INSULIN REGULAR, HUMAN 100 UNIT/ML 3 ML VIAL SQ PRN (08:02)
[2017-05-10] MEDS: DOCUSATE SODIUM 100 MG CAPSULE PO SCH ×2 (09:00→17:00)
[2017-05-10] MEDS: LACTOBACILLUS RHAMNOSUS GG 1 EACH CAP.SPRINK PO SCH ×2 (09:01→17:00)
[2017-05-10] MEDS: PANTOPRAZOLE 40 MG VIAL IV SCH (09:01)
[2017-05-10] MEDS: CADEXOMER IODINE 40 GM TUBE TP SCH (09:01)
[2017-05-10] MEDS: ENOXAPARIN SODIUM 40 MG/0.4 ML DISP.SYRIN SQ SCH (09:02)
[2017-05-10] MEDS: HYDROCODONE/APAP 5/325MG 1 EACH TABLET PO PRN (09:34)
[2017-05-10] MEDS: *INSULIN REGULAR(HUMULIN R)HUM 100 UNIT/ML VIAL SQ PRN ×3 (12:11→21:30)
[2017-05-10] MEDS: ONDANSETRON HCL/PF 4 MG/2 ML VIAL IVP PRN (12:54)
[2017-05-10] MEDS: ACETAMINOPHEN 325 MG TABLET PO PRN ×3 (12:59→20:59)
--- NOTE | 2017-05-10 14:29 | NUR ---
RN AMANDA VANCOMYCIN STOPPED DUE TO VANCO THROUGH OF 21, 175 ML LEFT MONITORED PATIENT CLOSELY
[2017-05-10 16:00] VITALS: BP 127/59
--- NOTE | 2017-05-10 18:28 | NUR ---
RN AMANDA POSSIBLE ALLERGIC REACTION TO CULTURELLE TAB CULTURELLE IS NOT GIVEN NO OTHER UNTOWARD SYMPTOM SEEN ENDORSED
[2017-05-10 20:00] VITALS: BP 119/70
[2017-05-10] MEDS: LEVOFLOXACIN 500 MG /D5W 100ML 500 MG in PREMIX 1 EA IV SCH (20:10)
[2017-05-10] MEDS: POLYETHYLENE GLYCOL 3350 17 GM POWD.PACK PO SCH (21:00)
--- NOTE | 2017-05-10 21:32 | NUR ---
RN NOTES RECEIVED PATIENT IN BED WITH NO DISTRESS NOTED, BREATHING EVEN AND UNLABORED. AWAKE, ALERT AND ORIENTED. VERBALLY ABLE TO COMMUNICATE NEEDS. NO COMPLAINT OF PAIN OF THIS TIME. CONTINENT OF BLADDER AND BOWEL FUNCTION. VOIDS FREELY WITHOUT DIFFICULTY. ABDOMEN SOFT AND NON TENDER. BOWEL SOUNDS PRESENT IN ALL FOUR QUADRANTS. WILL CONTINUE PLAN OF CARE.
[2017-05-10 22:00] VITALS: BP 119/70
[2017-05-11] MEDS: VANCOMYCIN 1 GM in IV D5W 250 ML IV SCH ×2 (00:53→12:18)
[2017-05-11 02:22] VITALS: BP 157/89
[2017-05-11] MEDS ORDERED: HYDROCODONE/APAP 5/325MG 1 EACH TABLET ONE ×4 (02:35)
[2017-05-11] MEDS ORDERED: ONDANSETRON HCL/PF 4 MG/2 ML VIAL ONE ×4 (02:36)
[2017-05-11] MEDS: HYDROCODONE/APAP 5/325MG 1 EACH TABLET PO PRN (02:38)
--- NOTE | 2017-05-11 02:40 | NUR ---
RN NOTES RECEIVED PT FROM AMANDA AND COMPLAINED OF TERRIBLE HEADACHE- NORCO 5/325 MG PO GIVEN ORDERED, V/S STABLE, PT. REFUSED PICTURE OF HIS RIGHT FOOT. RIGHT FOOT WOUND WITH DRESSING - DRY AND INTACT, CALL LIGHT WITHIN REACH, SIDERAILS UPX2 CONTINUE TO MONITOR
--- NOTE | 2017-05-11 02:42 | NUR ---
RN NOTES TRANSFERRED TO [address] 2[address] FLO[address] IN STABLE CONDITION, WITH COMPLAINT OF NAUSEA. VITAL SIGNS WNL OF 0000. ENDORSED TO MS NURSE FOR CONTINUITY OF CARE.
[2017-05-11] MEDS ORDERED: METOCLOPRAMIDE HCL 10 MG/2 ML VIAL ONE ×4 (05:31)
[2017-05-11] MEDS: METOCLOPRAMIDE HCL 10 MG/2 ML VIAL IV SCH ×2 (05:36→12:18)
[2017-05-11] MEDS ORDERED: ACETAMINOPHEN 325 MG TABLET ONE ×4 (05:38)
[2017-05-11] MEDS: ACETAMINOPHEN 325 MG TABLET PO PRN ×2 (05:39→11:48)
--- NOTE | 2017-05-11 05:45 | NUR ---
RN NOTES PT. COMPLAINED OF HEADACHE AND ASKED FOR TYLENOL, TYLENOL 650MG PO GIVEN ORDER. V/S STABLE
[2017-05-11] MEDS: BLOOD SUGAR DIAGNOSTIC 1 EACH STRIP VI SCH ×4 (06:53→22:10)
[2017-05-11] MEDS: INSULIN REGULAR, HUMAN 100 UNIT/ML 3 ML VIAL SQ PRN ×3 (06:55→17:36)
--- NOTE | 2017-05-11 07:00 | NUR ---
RN NOTES AWAKE, MIDLINE IN PLACE, DENIES PAIN, NO SOB, CALL LIGHT WITHIN REACH, SIDERAILS UPX2 PT. NEEDS ATTENDED. ENDORSED TO DAYSHIFT NURSE FOR CONTINUITY OF CARE
--- NOTE | 2017-05-11 07:18 | NUR ---
MS RN OPENING NOTES PATIENT RECEIVED AWAKE IN BED IN NO ACUTE SIGNS OF DISTRESS. ALERT AND ORIENTED X4, SAME VERBALLY RESPONSIVE WITH NO C/O PAIN OR DISCOMFORTS VOICED AT THIS TIME. ON ROOM AIR, BREATHING EVEN AND UNLABORED. MIDLINE ON YORDY INTACT AND PATENT, FLUSHES WELL. CALL LIGHT WITHIN REACH. WILL CONTINUE TO MONITOR PT ACCORDINGLY.
[2017-05-11 08:00] VITALS: BP 153/89
--- NOTE | 2017-05-11 08:11 | NUR ---
RN NOTES LABOR GANG SUPERVISOR CAME TO OBTAIN BLOOD FROM PT BUT UN-ABLE TO GET SPECIMEN. TRIED ALSO TO GET FROM MIDLINE BUT NO BLOOD COMING OUT. LABOR GANG SUPERVISOR SAID THAT HE WILL COME AGAIN AND TRY LATER.
[2017-05-11] MEDS: LACTOBACILLUS RHAMNOSUS GG 1 EACH CAP.SPRINK PO SCH ×2 (09:11→16:23)
[2017-05-11] MEDS: CADEXOMER IODINE 40 GM TUBE TP SCH (09:11)
[2017-05-11] MEDS: DOCUSATE SODIUM 100 MG CAPSULE PO SCH ×2 (09:12→16:23)
[2017-05-11] MEDS: PANTOPRAZOLE 40 MG VIAL IV SCH (09:12)
[2017-05-11] MEDS: ENOXAPARIN SODIUM 40 MG/0.4 ML DISP.SYRIN SQ SCH (09:12)
[2017-05-11 10:08] LABS: POTASSIUM 4.5 mmol/L (3.5-5.1)
--- NOTE | 2017-05-11 12:41 | NUR ---
RN NOTES PATIENT C/O MILD SOB WITH FEELING OF WARM ON ABDOMEN AFTER ADMINISTERING REGLAN IVP. V/S TAKEN; BP 156/71, P 74, R 20 AND SP02 99%. MADE AWARE. 02 VIA N/C AT 2LPM GIVEN. DC/D REGLAN 10MG/2ML IVP AND TO ORDER MECLIZINE 25MG TAB Q 8HRS, SOLU-MEDROL 60MG/0.96ML IVP X 1 AND NS @ 75ML/HR. ORDERS WILL BE CARRIED OUT.
[2017-05-11] MEDS ORDERED: hydrALAZINE HCL 25 MG TABLET PO PRN (15:00)
[2017-05-11] MEDS ORDERED: methylPREDNISolone SOD SUCC 125 MG/2ML VIAL IV ONE (15:00)
[2017-05-11] MEDS: MECLIZINE HCL 25 MG TABLET PO SCH ×2 (15:12→21:32)
[2017-05-11] MEDS: IV NS 0.9% 1,000 ML IV PRN (15:12)
--- NOTE | 2017-05-11 15:51 | NUR ---
RN NOTES PATIENT RESTING IN BED WITH AT BEDSIDE. A/O X4 MILD SOB RELIEF AND BREATHING WELL NOW. 02 REMOVED PER REQUEST FROM PT. SP02 98%. WILL CONTINUE TO MONITOR.
[2017-05-11 16:00] VITALS: BP 136/79
--- NOTE | 2017-05-11 19:21 | NUR ---
MS RN CLOSING NOTES PATIENT RESTING IN BED WITH FAMILY AT BEDSIDE. A/O X4. VERBALLY RESPONSIVE. ON ROOM AIR, BREATHING EVEN AND UNLABORED. MIDLINE ON YORDY INTACT AND PATENT WITH IVF OF NS @ 75ML /HR INFUSING WELL. KEPT BED LOCKED AND IN LOW POSITION WITH SIDE-RAILS UP X 2. CALL LIGHT WITHIN REACH. ALL NEEDS AND CARE ATTENDED WELL. ENDORSED TO TESTING TECH NURSE FOR RON.
--- NOTE | 2017-05-11 19:30 | NUR ---
MS RN NOTES RECEIVED ON BED A/O X4,SPEAK GREENLANDIC,WITH LITTLE SERBIAN.PRESENT IVF NS AT 75ML/HR RATE INFUSING VIA IV PUMP ON RIGHT UPPER ARM MIDLINE.WITH LOTS OF VISITOR AT BEDSIDE.LEFT FOOT DRESSING INTACT AND DRY.PATIENT REFUSED DRESSING CHANGE PER DAYSHIFT NURSE REPORT.DENIES DISCOMFORTS AT THE MOMENT.CALL LIGHT IN REACH,NEEDS ANTICIPATED.
[2017-05-11 20:00] VITALS: BP 151/84
[2017-05-11 20:08] VITALS: BP 151/84
[2017-05-11] MEDS: LEVOFLOXACIN 500 MG /D5W 100ML 500 MG in PREMIX 1 EA IV SCH (21:21)
--- NOTE | 2017-05-11 21:30 | NUR ---
MS RN NOTES REFUSED MIRALAX,CLAIMED SHE HAD BOWEL MOVEMENT 2X ALREADY ON DAYTIME.
[2017-05-11] MEDS: POLYETHYLENE GLYCOL 3350 17 GM POWD.PACK PO SCH (21:33)
[2017-05-11] MEDS: *INSULIN REGULAR(HUMULIN R)HUM 100 UNIT/ML VIAL SQ PRN (22:15)
[2017-05-12] MEDS: VANCOMYCIN 1 GM in IV D5W 250 ML IV SCH ×2 (01:11→13:22)
[2017-05-12] MEDS: MECLIZINE HCL 25 MG TABLET PO SCH ×3 (05:00→21:00)
[2017-05-12] MEDS: ACETAMINOPHEN 325 MG TABLET PO PRN ×3 (05:55→17:48)
--- NOTE | 2017-05-12 05:55 | NUR ---
MS RN NOTES C/O HEADACHE,MEDICATED WITH TYLENOL 650MG PO PER PATIENT REQUEST.
[2017-05-12] MEDS: IV NS 0.9% 1,000 ML IV PRN (06:32)
[2017-05-12 06:49] LABS: BASOPHILS % (AUTO) 0.1 % (0.0-2.0); EOSINOPHILS % (AUTO) 0.2 % (0.0-6.0); HEMATOCRIT 37 % (39-51); HEMOGLOBIN 12.3 g/dL (13.5-17.5); LYMPHOCYTES # (AUTO) 1.5 /CMM (0.8-4.8); LYMPHOCYTES % (AUTO) 13.2 % (20.0-44.0); MEAN CORPUSCULAR HEMOGLOBIN 28 PG (26.0-33.0); MEAN CORPUSCULAR HGB CONC 33 g/dl (31.0-36.0); MEAN CORPUSCULAR VOLUME 83 fL (80-96); MONOCYTES # (AUTO) 0.7 /CMM (0.1-1.30); MONOCYTES % (AUTO) 6.1 % (2.0-12.0); NEUTROPHILS # (AUTO) 9.1 /CMM (1.8-8.9); NEUTROPHILS % (AUTO) 80.4 % (43.0-81.0); PLATELET COUNT (AUTO) 588 /CMM (150-450); RED BLOOD CELL COUNT(AUTO) 4.45 MIL/uL (4.5-6.0); WHITE BLOOD COUNT (AUTO) 11.4 K/uL (4.3-11.0)
--- NOTE | 2017-05-12 06:51 | NUR ---
MS RN NOTES SLEPT WITH INTERVALS.IV ABX TOLERATED WELL.NO NAUSEA/VOMITING NOTED.REFUSED MECLIZINE AT 0600 DOSE.DENIES PAIN ON LEFT FOOT,DRESSING INTACT AND DRY.IN NO ACUTE DISTRESS.WILL ENDORSE TO DAY NURSE FOR RON.
[2017-05-12] MEDS: BLOOD SUGAR DIAGNOSTIC 1 EACH STRIP VI SCH ×4 (07:12→21:36)
[2017-05-12] MEDS: INSULIN REGULAR, HUMAN 100 UNIT/ML 3 ML VIAL SQ PRN ×3 (07:15→17:43)
--- NOTE | 2017-05-12 07:15 | NUR ---
RN MS NOTES PATIENT ASLEEP BUT EASILY AROUSABLE, NO S/SX OF ANY DISTRESS, BREATHING EVEN AND UNLABORED, NO SOB NOTED, NO S/SX OF PAIN OR DISCOMFORT AT THIS TIME, MIDLINE ON YORDY PATENT AND FLUSHES WELL, WITH IVF INFUSING AND TOLERATING WELL, WILL OFFER WOUND DRESSING CHANGE, NEEDS ATTENDED AND ANTICIPATED, SAFETY MEASURES IN PLACED, CALL LIGHT WITHIN REACH, WILL CONTINUE TO MONITOR.
[2017-05-12 07:33] LABS: CALCIUM, SERUM 8.4 mg/dL (8.5-10.1); CREATININE 0.8 mg/dL (0.6-1.3); PHOSPHORUS 2.8 mg/dL (2.5-4.9); POTASSIUM 3.9 mmol/L (3.5-5.1)
[2017-05-12 08:00] VITALS: BP 158/87
[2017-05-12] MEDS: AMLODIPINE BESYLATE 10 MG TABLET PO SCH (08:35)
[2017-05-12] MEDS: LISINOPRIL (20MG) 20 MG TABLET PO SCH (08:35)
[2017-05-12] MEDS: PANTOPRAZOLE 40 MG VIAL IV SCH (08:35)
[2017-05-12] MEDS: LACTOBACILLUS RHAMNOSUS GG 1 EACH CAP.SPRINK PO SCH ×2 (08:35→17:39)
[2017-05-12] MEDS: DOCUSATE SODIUM 100 MG CAPSULE PO SCH ×2 (08:35→17:39)
[2017-05-12] MEDS: CADEXOMER IODINE 40 GM TUBE TP SCH (08:36)
[2017-05-12] MEDS: ENOXAPARIN SODIUM 40 MG/0.4 ML DISP.SYRIN SQ SCH (08:42)
--- NOTE | 2017-05-12 10:05 | NUR ---
RN MS NOTES PER US TECH, US BLADDER SHOWS 500CC OF URINE IN BLADDER, INFORMED PATIENT AND STATED STRAIGHT CATH MUST BE INSERTED TO REMOVE URINE, PATIENT REFUSED, DENIES PAIN OR DISCOMFORT, OFFERED X3, EXPLAINED RISKS AND BENEFITS, STILL REFUSED, PER PATIENT HE WILL TRY TO URINATE ON HIS OWN. URINAL OFFERED, PATIENT ABLE TO URINATE 400CC OF YELLOW URINE AT THIS TIME, WILL ENCOURAGE PATIENT TO URINATE AGAIN IN 30 MINUTES OR 1 HOUR.
[2017-05-12] MEDS: predniSONE 20 MG TABLET PO SCH (13:22)
[2017-05-12 16:00] VITALS: BP 114/69
--- NOTE | 2017-05-12 18:47 | NUR ---
RN MS NOTES PATIENT ALERT AND ORIENTED, NO DISTRESS NOTED, C/O HEADACHE ALL THROUGHOUT THE SHIFT, PAIN MANAGEABLE AT TIMES WITH TYLENOL, URINE OUTPUT IS 900CC THROUGHOUT THE SHIFT, NO BLADDER DISTENTION NOTED, NO C/O ON THE BLADDER AREA, MIDLINE STILL PATENT AND INTACT, FLUSHES WELL, ALL DUE MEDICATIONS PROVIDED, NO S/SX OF HYPO OR HYPERGLYCEMIA AT THIS TIME, FAMILY AT BEDSIDE, WOUND TREATMENT RENDERED, DRESSING CHANGED, ALL NEEDS ATTENDED AND MET, SAFETY MEASURES IN PLACED, CALL LIGHT WITHINR EACH, WILL ENDORSE TO STATION CASHIER FOR CONTINUITY OF CARE.
[2017-05-12 20:00] VITALS: BP 121/71
--- NOTE | 2017-05-12 20:00 | NUR ---
MS RN NOTES ON BED TRYING TO GET A SLEEP,ALERT,ORIENTED X3.BREATHING REGULAR,DENIES PAIN DISCOMFORTS.LEFT FOOT DRESSING INTACT AND DRY.RIGHT UPPER ARM MIDLINE INTACT AND PATENT.CALL LIGHT IN REACH,NEEDS ANTICIPATED.
[2017-05-12 20:02] VITALS: BP 121/71
[2017-05-12] MEDS: LEVOFLOXACIN 500 MG /D5W 100ML 500 MG in PREMIX 1 EA IV SCH (20:36)
--- NOTE | 2017-05-12 21:00 | NUR ---
MS RN NOTES DUE LEVMARCELA VALEPB HUNG
[2017-05-12] MEDS: *INSULIN REGULAR(HUMULIN R)HUM 100 UNIT/ML VIAL SQ PRN (21:37)
[2017-05-12] MEDS: POLYETHYLENE GLYCOL 3350 17 GM POWD.PACK PO SCH (22:00)
--- NOTE | 2017-05-12 22:00 | NUR ---
MS RN NOTES ACCU-CHECK BLOOD SUGAR CHECK 289,COVERED WITH HUMULIN R 6 UNITS PER SLIDING SCALE.
--- NOTE | 2017-05-13 01:00 | NUR ---
MS RN NOTE EMPTIED URINAL 900 ML,CLEAR YELLOW URINE
[2017-05-13] MEDS: VANCOMYCIN 1 GM in IV D5W 250 ML IV SCH ×2 (01:02→12:56)
[2017-05-13] MEDS: MECLIZINE HCL 25 MG TABLET PO SCH ×2 (05:00→13:00)
[2017-05-13] MEDS: BLOOD SUGAR DIAGNOSTIC 1 EACH STRIP VI SCH ×2 (05:39→11:56)
[2017-05-13] MEDS: INSULIN REGULAR, HUMAN 100 UNIT/ML 3 ML VIAL SQ PRN ×2 (05:59→12:01)
--- NOTE | 2017-05-13 06:00 | NUR ---
MS RN NOTES ACCU-CHECK BLOOD SUGAR CHECK 257,COVERED WITH HUMULIN R 9 UNITS PER SLIDING SCALE.
--- NOTE | 2017-05-13 06:39 | NUR ---
MS RN NOTES A/O X4,SLEPT WELL AT [facility].CALL LIGHT IN REACH,NEEDS ATTENDED.D/C PLAN TO HOME TODAY,POSSIBLE SURGERY BY 05/17/17.IN NO ACTE DISTRESS.WILL ENDORSE TO DAY NURSE FOR RON.
[2017-05-13 06:56] LABS: BASOPHILS % (AUTO) 0.1 % (0.0-2.0); EOSINOPHILS % (AUTO) 0.2 % (0.0-6.0); HEMATOCRIT 36 % (39-51); HEMOGLOBIN 11.8 g/dL (13.5-17.5); LYMPHOCYTES % (AUTO) 8.4 % (20.0-44.0); MEAN CORPUSCULAR HEMOGLOBIN 27 PG (26.0-33.0); MEAN CORPUSCULAR HGB CONC 33 g/dl (31.0-36.0); MEAN CORPUSCULAR VOLUME 83 fL (80-96); MONOCYTES # (AUTO) 0.6 /CMM (0.1-1.30); MONOCYTES % (AUTO) 5.3 % (2.0-12.0); NEUTROPHILS # (AUTO) 10.4 /CMM (1.8-8.9); PLATELET COUNT (AUTO) 506 /CMM (150-450); RDW COEFFICIENT OF VARIATION 16.4 (11.5-15.0); RED BLOOD CELL COUNT(AUTO) 4.33 MIL/uL (4.5-6.0); WHITE BLOOD COUNT (AUTO) 12.1 K/uL (4.3-11.0)
[2017-05-13 07:36] LABS: CALCIUM, SERUM 8.5 mg/dL (8.5-10.1); CREATININE 0.9 mg/dL (0.6-1.3); MAGNESIUM 1.8 mg/dL (1.8-2.4); PHOSPHORUS 3.3 mg/dL (2.5-4.9); POTASSIUM 4.3 mmol/L (3.5-5.1)
[2017-05-13 08:00] VITALS: BP 158/89
--- NOTE | 2017-05-13 08:01 | NUR ---
MS RN OPENING NOTE PATIENT IS ALERT AND ORIENTED x4. NO PAIN AT THIS TIME. NO SOB OR DISTRESS NOTED. CALL LIGHT WITHIN. SAFETY MEASURES IMPLEMENTED. ABLE TO COMMUNICATE NEEDS. MIDLINE ON RIGHT UPPER ARM INTACT AND PATENT. BLOOD SUGAR MONITORING. AMBULATORY WITH ASSISTANCE. POSSIBLE DISCHARGE WILL CONTINUE TO MONITOR
[2017-05-13] MEDS: PANTOPRAZOLE 40 MG VIAL IV SCH (08:34)
[2017-05-13] MEDS: LACTOBACILLUS RHAMNOSUS GG 1 EACH CAP.SPRINK PO SCH (08:34)
[2017-05-13] MEDS: predniSONE 20 MG TABLET PO SCH (08:34)
[2017-05-13] MEDS: LISINOPRIL (20MG) 20 MG TABLET PO SCH (08:34)
[2017-05-13 08:35] VITALS: BP 158/89
[2017-05-13] MEDS: ENOXAPARIN SODIUM 40 MG/0.4 ML DISP.SYRIN SQ SCH (08:35)
[2017-05-13] MEDS: AMLODIPINE BESYLATE 10 MG TABLET PO SCH (08:35)
[2017-05-13] MEDS: CADEXOMER IODINE 40 GM TUBE TP SCH (08:41)
[2017-05-13] MEDS: DOCUSATE SODIUM 100 MG CAPSULE PO SCH (08:41)
[2017-05-13] MEDS: ACETAMINOPHEN 325 MG TABLET PO PRN (08:43)
--- NOTE | 2017-05-13 14:54 | NUR ---
MS PULLMAN CAR CLERK NOTE PATIENT IS ALERT AND ORIENTED x4. NO PAIN AT THIS TIME. NO SOB OR DISTRESS NOTED.CALL LIGHT WITHIN REACH AT ALL TIMES. SAFETY MEASURES IMPLEMENTED. ALL DUE MEDICATIONS GIVEN ORDERED. WOUND CARE TREATMENT DONE. ALL NURSING CARE NEEDS ATTENDED TO. ALL DISCHARGE INSTRUCTIONS GIVEN TO DAUGHTER AT BEDSIDE, ABLE TO TEACH-BACK INSTRUCTIONS VERBALLY. NEW MEDICATION PRESCRIPTION WAS GIVEN TO DAUGHTER, EXPLAINED MEDICATIONS PRESCRIBED AND USAGE. ALL BELONGINGS WITH PATIENT AND WITH FAMILY. PATIENT REFUSED TO HAVE PICTURES TAKEN OF SKIN AND FOOT WOUND. LEFT WITH DAUGHTER AND VIA PRIVATE CAR
== END 2017-05-13 14:49 | disposition home or self-care (01) | DRG 623 ==
LOC: ER 22:36 → TELE1 05-05 01:43 → MEDSG1 05-08 14:05 → MEDSG2 05-11 02:11
PROVIDERS: ADMIT Internal Medicine
PROC: 05H533Z Insertion of Infusion Device into Right Subclavian Vein, Percutaneous Approach (ICD-10-PCS; 2017-05-05)
PROC: 0JBR0ZZ Excision of Left Foot Subcutaneous Tissue and Fascia, Open Approach (ICD-10-PCS; principal; 2017-05-07)
DX: E11.69 Type 2 diabetes mellitus with other specified complication (principal); M86.9 Osteomyelitis, unspecified; K31.84 Gastroparesis; E11.621 Type 2 diabetes mellitus with foot ulcer; E11.40 Type 2 diabetes mellitus with diabetic neuropathy, unspecified; E11.65 Type 2 diabetes mellitus with hyperglycemia; E87.1 Hypo-osmolality and hyponatremia; J98.11 Atelectasis; Z91.19 Patient's noncompliance with other medical treatment and regimen; Z79.899 Other long term (current) drug therapy; Z79.84 Long term (current) use of oral hypoglycemic drugs; Z79.82 Long term (current) use of aspirin; L97.529 Non-pressure chronic ulcer of other part of left foot with unspecified severity; I10 Essential (primary) hypertension; E78.5 Hyperlipidemia, unspecified; Z79.4 Long term (current) use of insulin; Z89.431 Acquired absence of right foot; D64.9 Anemia, unspecified; F17.200 Nicotine dependence, unspecified, uncomplicated; H81.10 Benign paroxysmal vertigo, unspecified ear; E11.43 Type 2 diabetes mellitus with diabetic autonomic (poly)neuropathy
CPT/HCPCS: 36415; 36569; 70470-TC; 71010-TC; 73630-TC; 73718-TC; 74000-TC; 76856-TC; 80048-TC; 80053-TC; 80076-TC; 80202-TC; 81000-TC; 82553-TC; 82962-TC; 83540-TC; 83605-TC; 83735-TC; 83935-TC; 84100-TC; 84300-TC; 84443-TC; 84484-TC; 84550-TC; 85025-TC; 85610-TC; 85730-TC; 87040-TC; 87081-TC; 87086-TC; 87400; 93307-TC; A4216; A4606; A6402; A6403; C9113; J1650; J1815; J1956; J2185; J2270; J2405; J2543; J2765; J2930; J3370; J7030; J7050; J7060; J8597; Z7610

== ENCOUNTER 2017-05-17 09:34 | Outpatient (CLI) | payer MEDICARE, OTHER ==
[~2017-05-17 09:34] MED LIST changes: -ACET650T10 PO; -ASPI-605 PO; +ASPI-991 PO; +ASPIRIN 81 MG TAB.CHEW ONE; -BRIM5DRO2 OP; +CT SWABBABLE VALVE TRANS SET 1 EA INFUS.SET MC ONE; -HYDR-548 PO; -HYDR25TA4 PO; +IOHEXOL-300 100 ML VIAL IV ONE; +IV NS 0.9% 250 ML IV ONE; +ONDANSETRON HCL/PF 4 MG/2 ML VIAL ONE; +PIOG15TA3 PO
== END 2017-05-17 23:59 | disposition home health service (06) ==
LOC: WOU 09:34
PROVIDERS: ATTEND Podiatrist Foot & Ankle Surgery
DX: E11.621 Type 2 diabetes mellitus with foot ulcer (principal); E11.42 Type 2 diabetes mellitus with diabetic polyneuropathy; Z89.411 Acquired absence of right great toe; E11.69 Type 2 diabetes mellitus with other specified complication; M86.672 Other chronic osteomyelitis, left ankle and foot; L97.523 Non-pressure chronic ulcer of other part of left foot with necrosis of muscle; F17.200 Nicotine dependence, unspecified, uncomplicated; R11.2 Nausea with vomiting, unspecified; R51 Headache; M20.5X2 Other deformities of toe(s) (acquired), left foot; Z79.84 Long term (current) use of oral hypoglycemic drugs; Z79.4 Long term (current) use of insulin; Z79.82 Long term (current) use of aspirin; Z79.899 Other long term (current) drug therapy
CPT/HCPCS: A6209; A6402; G0463; J2405; J7050; Q9967

== ENCOUNTER 2017-05-21 13:35 | Outpatient (CLI) | payer MEDICARE, OTHER ==
[~2017-05-21 13:35] MED LIST changes: -ASPIRIN 81 MG TAB.CHEW ONE; -CT SWABBABLE VALVE TRANS SET 1 EA INFUS.SET MC ONE; -IOHEXOL-300 100 ML VIAL IV ONE; -IV NS 0.9% 250 ML IV ONE; -ONDANSETRON HCL/PF 4 MG/2 ML VIAL ONE
== END 2017-05-21 23:59 | disposition home or self-care (01) ==
LOC: WOU 13:35
PROVIDERS: ATTEND Podiatrist Foot & Ankle Surgery
PROC: 05H633Z Insertion of Infusion Device into Left Subclavian Vein, Percutaneous Approach (ICD-10-PCS; principal; 2017-05-21)
DX: M86.8X7 Other osteomyelitis, ankle and foot (principal)
CPT/HCPCS: 36569

== ENCOUNTER 2017-05-29 17:37 | Inpatient (IN) | payer MEDICARE, OTHER ==
[~2017-05-29] VITALS: Ht 165.1 cm; Wt 82.1 kg
--- NOTE | 2017-05-29 17:50 | NUR ---
SENT BY DR. AGOSTO FOR LEFT TOE AMPUTATION- PRE-OP ADMISSION PER DTR, NAD NOTED, VSS, RESP EVEN AND UNLABORED. WAITING FOR EVAL.
[2017-05-29 18:57] LABS: BASOPHILS # (AUTO) 0.1 /CMM (0.0-0.2); BASOPHILS % (AUTO) 0.7 % (0.0-2.0); EOSINOPHILS # (AUTO) 0.3 /CMM (0.0-0.7); EOSINOPHILS % (AUTO) 3.8 % (0.0-6.0); HEMATOCRIT 37 % (39-51); HEMOGLOBIN 12.2 g/dL (13.5-17.5); LYMPHOCYTES # (AUTO) 1.6 /CMM (0.8-4.8); LYMPHOCYTES % (AUTO) 21.7 % (20.0-44.0); MEAN CORPUSCULAR HEMOGLOBIN 28 PG (26.0-33.0); MEAN CORPUSCULAR HGB CONC 33 g/dl (31.0-36.0); MEAN CORPUSCULAR VOLUME 84 fL (80-96); MONOCYTES # (AUTO) 0.5 /CMM (0.1-1.30); MONOCYTES % (AUTO) 6.4 % (2.0-12.0); NEUTROPHILS # (AUTO) 4.7 /CMM (1.8-8.9); NEUTROPHILS % (AUTO) 67.4 % (43.0-81.0); PLATELET COUNT (AUTO) 445 /CMM (150-450); RDW COEFFICIENT OF VARIATION 15.7 (11.5-15.0); RED BLOOD CELL COUNT(AUTO) 4.45 MIL/uL (4.5-6.0); WHITE BLOOD COUNT (AUTO) 7.2 K/uL (4.3-11.0)
[2017-05-29] MEDS ORDERED: PROC5TAB59 PO (19:02)
[2017-05-29 19:12] LABS: INR 0.88 (0.87-1.13); PROTHROMBIN TIME 9.1 SECS (9.5-12.7)
[2017-05-29 19:32] LABS: CALCIUM, SERUM 9.1 mg/dL (8.5-10.1); CREATININE 0.9 mg/dL (0.6-1.3); POTASSIUM 4.2 mmol/L (3.5-5.1)
[2017-05-29 19:45] LABS: ALBUMIN 3.4 g/dL (3.4-5.0); BILIRUBIN,TOTAL 0.3 mg/dL (0.2-1.0); TOTAL PROTEIN, SERUM 7.1 g/dL (6.4-8.2)
--- NOTE | 2017-05-29 20:04 | NUR ---
MS 204
--- NOTE | 2017-05-29 20:36 | NUR ---
REPORT GIVEN TO LU.
--- NOTE | 2017-05-29 21:00 | NUR ---
MS RN NOTES ADMITTED THIS 66 Y.O. 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 BLOOD SUGAR CHECK 173,COVERED WITH 3 UNITS HUMULIN PER SLIDING SCALE.SNACK ALSO PROVIDED AT BEDSIDE.
[2017-05-29 22:00] VITALS: BP 143/79
[2017-05-29] MEDS ORDERED: HYDROCODONE/APAP 5/325MG 1 EACH TABLET PO PRN (22:00)
[2017-05-29] MEDS ORDERED: ONDANSETRON HCL/PF 4 MG/2 ML VIAL IVP PRN (22:00)
[2017-05-29] MEDS ORDERED: DEXTROSE 50%-WATER 50 ML DISP.SYRIN IV PRN (22:00)
[2017-05-29] MEDS ORDERED: ENOXAPARIN SODIUM 40 MG/0.4 ML DISP.SYRIN SQ SCH (22:00)
[2017-05-29] MEDS ORDERED: ZOLPIDEM TARTRATE 5 MG TABLET PO PRN (22:00)
[2017-05-29] MEDS ORDERED: ENOXAPARIN SODIUM 40 MG/0.4 ML DISP.SYRIN SQ ONE (22:06)
[2017-05-29] MEDS: IV NS 0.9% 1,000 ML IV PRN (22:12)
[2017-05-29] MEDS: BLOOD SUGAR DIAGNOSTIC 1 EACH STRIP IN SCH (22:18)
[2017-05-29] MEDS: INSULIN REGULAR, HUMAN 100 UNIT/ML 3 ML VIAL SQ PRN (22:28)
[2017-05-29 23:22] VITALS: BP 143/79
--- NOTE | 2017-05-30 01:00 | NUR ---
MS RN NOTES SEEN AND EXAMINED BY TATE OLIVIER,WITH NEW ORDERS NOTED AND CARRIED OUT.
[2017-05-30] MEDS ORDERED: METOCLOPRAMIDE HCL 10 MG/2 ML VIAL IV PRN (02:30)
--- NOTE | 2017-05-30 05:30 | NUR ---
MS RN NOTES ACCUCHECK BLOOD SUGAR CHECK 173,COVERED WITH HUMULIN R 3 UNITS PER SLIDING SCALE.
[2017-05-30] MEDS: BLOOD SUGAR DIAGNOSTIC 1 EACH STRIP IN SCH ×4 (05:38→21:37)
[2017-05-30] MEDS ORDERED: ACETAMINOPHEN 325 MG TABLET ONE (05:42)
--- NOTE | 2017-05-30 05:42 | NUR ---
MS RN NOTES C/O HEADACHE,MEDICATED WITH TYLENOL 650MG PO PER PATIENT REQUEST.
[2017-05-30] MEDS: ACETAMINOPHEN 325 MG TABLET PO PRN (05:43)
[2017-05-30] MEDS: INSULIN REGULAR, HUMAN 100 UNIT/ML 3 ML VIAL SQ PRN ×4 (05:53→21:42)
--- NOTE | 2017-05-30 06:15 | NUR ---
MS RN NOTES OFFERED TO CLEAN AND PUT DRESSING ON LEFT FOOT WOUND,PATIENT REFUSED,CLAIMED ,MD WILL CHECK ON IT
--- NOTE | 2017-05-30 06:20 | NUR ---
MS RN NOTES NO NAUSEA,VOMITING NOTED.IVF IN PROGRESS,FOR CT HEAD WITHOUT CONTRAST ORDERED.FOR NEURO CONSULT REGARDING DIZZINESS AND VERTIGO.IN NO ACUTE DISTRESS.WILL ENDORSE TO DAY NURSE FOR RON.
[2017-05-30 06:37] LABS: BASOPHILS % (AUTO) 0.7 % (0.0-2.0); EOSINOPHILS # (AUTO) 0.2 /CMM (0.0-0.7); EOSINOPHILS % (AUTO) 3.9 % (0.0-6.0); HEMATOCRIT 35 % (39-51); HEMOGLOBIN 11.7 g/dL (13.5-17.5); LYMPHOCYTES # (AUTO) 1.5 /CMM (0.8-4.8); LYMPHOCYTES % (AUTO) 23.6 % (20.0-44.0); MEAN CORPUSCULAR HEMOGLOBIN 28 PG (26.0-33.0); MEAN CORPUSCULAR HGB CONC 34 g/dl (31.0-36.0); MEAN CORPUSCULAR VOLUME 84 fL (80-96); MONOCYTES # (AUTO) 0.6 /CMM (0.1-1.30); MONOCYTES % (AUTO) 8.7 % (2.0-12.0); NEUTROPHILS # (AUTO) 4.1 /CMM (1.8-8.9); NEUTROPHILS % (AUTO) 63.1 % (43.0-81.0); PLATELET COUNT (AUTO) 429 /CMM (150-450); RDW COEFFICIENT OF VARIATION 16.9 (11.5-15.0); RED BLOOD CELL COUNT(AUTO) 4.19 MIL/uL (4.5-6.0); WHITE BLOOD COUNT (AUTO) 6.4 K/uL (4.3-11.0)
[2017-05-30 06:56] LABS: CALCIUM, SERUM 8.7 mg/dL (8.5-10.1); CREATININE 0.8 mg/dL (0.6-1.3); MAGNESIUM 1.8 mg/dL (1.8-2.4); PHOSPHORUS 3.5 mg/dL (2.5-4.9); POTASSIUM 4.3 mmol/L (3.5-5.1)
[2017-05-30 07:29] VITALS: BP_SYST 145; BP_SYST 146; BP_DIAS 71; BP_DIAS 76
[2017-05-30 08:00] VITALS: BP 137/82
--- NOTE | 2017-05-30 08:15 | NUR ---
RN NOTES RECEIVED PT. PT IS SLEEPING IN BED. PT IS GERMAN SPEAKING ONLY. NO S/S OF RESPIRATORY DISTRESS OR SOB. PT DOES NOT APPEAR TO BE IN PAIN. PT HAS A LEFT ARM PICC LINE, RUNNING NS AT 75 ML/HR, LINE REMAINS PATENT. PER DR. QUINTERO ORDER, PT TO BE NPO AFTER MIDNIGHT AND TO DC ALL ANTICOAGS FOR THE DAY. SAFETY MEASURES IN PLACE, CALL LIGHT WITHIN REACH. WILL CONTINUE TO MONITOR.
[2017-05-30] MEDS ORDERED: FEE PK DOSING 1 MIN EA MC ONE (08:42)
[2017-05-30] MEDS ORDERED: VANCOMYCIN 1 GM in IV D5W 250 ML IV SCH (09:00)
[2017-05-30 16:00] VITALS: BP 135/77
[2017-05-30] MEDS: VANCOMYCIN 0.75 GM in IV D5W 250 ML IV SCH (17:12)
--- NOTE | 2017-05-30 18:51 | NUR ---
RN CLOSING NOTES PT ALERT AND RESTING IN BEDSIDE CHAIR. NO S/S OF DISTRESS OR SOB. NO C/O PAIN AT THIS TIME. PT SCHEDULED FOR LEFT PARTIAL FIRST RAY AMPUTATION PER MD DR. QUINTERO. PT TO BE NPO AFTER MIDNIGHT AND ALL ANTI COAGULANTS TO BE HELD. SAFETY MEASURES IN PLACE, CALL LIGHT WITHIN REACH. WILL ENDORSE TO EXTRUDING MACHINE OPERATOR FOR RON.
[2017-05-30 20:00] VITALS: BP 145/83
--- NOTE | 2017-05-30 20:00 | NUR ---
RN NOTES RECEIVED PT. AWAKE ON BED, A/OX3, MALTESE SPEAKING, AT BEDSIDE, DENIES PAIN, NO SOB.,VINOD LIGHT WITHIN REACH, SIDERAILS UPX2 CONTINUE TO MONITOR
[2017-05-30] MEDS: MECLIZINE HCL 25 MG TABLET PO SCH (20:25)
[2017-05-30] MEDS: IV NS 0.9% 1,000 ML IV PRN (20:25)
[2017-05-30] MEDS: ENOXAPARIN SODIUM 40 MG/0.4 ML DISP.SYRIN SQ SCH (21:00)
[2017-05-31] VITALS (10 sets, daily range): BP systolic 114–146; BP diastolic 61–88
[2017-05-31] MEDS: VANCOMYCIN 0.75 GM in IV D5W 250 ML IV SCH ×2 (00:13→11:40)
[2017-05-31] MEDS: ACETAMINOPHEN 325 MG TABLET PO PRN ×2 (02:33→17:20)
--- NOTE | 2017-05-31 02:34 | NUR ---
RN NOTES COMPLAINED OF HEADACHE- TYLENOL 650MG PO GIVEN ORDER WITH SIP OF WATER
[2017-05-31] MEDS: MECLIZINE HCL 25 MG TABLET PO SCH ×3 (05:00→20:35)
--- NOTE | 2017-05-31 06:12 | NUR ---
RN NOTES BLOOD SUGAR- 194-NO COVERAGE GIVEN, PT. NPO
--- NOTE | 2017-05-31 06:26 | NUR ---
RN NOTES SLEEPING BUT AROUSABLE, NO PAIN NOTED, NO SOB, MORNING CARE RENDERED, PT NEEDS ATTENDED. ENDORSED TO DAYSHIFT NURSE FOR CONTINUITY OF CARE
[2017-05-31 06:44] LABS: CALCIUM, SERUM 8.8 mg/dL (8.5-10.1); CREATININE 0.8 mg/dL (0.6-1.3); POTASSIUM 4.2 mmol/L (3.5-5.1)
--- NOTE | 2017-05-31 07:30 | NUR ---
MS/RN OR Patient already taken to operating room at start of shift. Family rediredcted to wait in surgery waiting room as requesting to speak with doctor after surgery completed.
[2017-05-31] MEDS ORDERED: LIDOCAINE 1% INJ 50 ML MDV IJ ONE (07:43)
[2017-05-31] MEDS ORDERED: GELATIN SPONGE,ABSORBABLE 1 EA SPONGE TP ONE (09:02)
--- NOTE | 2017-05-31 10:15 | NUR ---
MS/RN Back to room Patient back in room following debridement of left foot. Vital sign on return stable, dressing dry and intact. Foot remains elevated on two pillows, needs to remain non weight bearing on left lower extremity. Ice chips provided to patient, lunch tray ordered. IV fluids infusing at 75ml/hr via central line on left upper extremity. Family at bedside, have spoken to MD post surgery, updated as to plan of care. Call light within reach, will continue to monitor.
--- NOTE | 2017-05-31 10:36 | NUR ---
MS/filing writer Lab at bedside for vancomycin trough.
--- NOTE | 2017-05-31 11:30 | NUR ---
MS/RN Vanco trough Vanco trough 10, dose administered. Pharmacy notified, will change dose to 1gm every eight hours, next scheduled administration 8p
[2017-05-31] MEDS: INSULIN REGULAR, HUMAN 100 UNIT/ML 3 ML VIAL SQ PRN ×3 (11:41→21:17)
[2017-05-31] MEDS: BLOOD SUGAR DIAGNOSTIC 1 EACH STRIP IN SCH ×4 (11:45→21:18)
--- NOTE | 2017-05-31 12:00 | NUR ---
MS/RN Blood sugar Blood sugar at noon 158, two units regular insulin administered as per sliding scale.
--- NOTE | 2017-05-31 12:39 | NUR ---
MS/RN Post op vitals Post operative vital signs remain stable, no fever or drainage noted through dressing. Will continue to monitor.
[2017-05-31] MEDS: IV NS 0.9% 1,000 ML IV PRN (12:55)
--- NOTE | 2017-05-31 17:30 | NUR ---
MS/RN Blood sugar Blood sugar at 5p - 183, three units of regular insulin administered as per sliding scale.
--- NOTE | 2017-05-31 18:25 | NUR ---
MS/RN End note All needs attended at this time, no nausea or vomiting. Dressing to left foot dry and intact, no oozing. Complaining of headache, tylenol 650mg given, will monitor effectiveness. Will endorse to restaurant shift leader.
--- NOTE | 2017-05-31 19:30 | NUR ---
RN NOTES RECEIVED PATIENT UP IN CHAIR, AO X 3, ABLE TO MAKE NEEDS KNOWN. NO ACUTE DISTRESS NOTED. DENIES ANY PAIN AT THIS TIME. IV SITE PATENT, INTACT; IVF INFUSING ORDERED. NO SYMPTOMS OF HYPER/HYPOGLYCEMIA. LEFT FOOT DRESSING INTACT. SAFETY REMINDERS GIVEN. CALL LIGHT WITHIN EASY REACH. WILL CONTINUE TO MONITOR.
[2017-05-31] MEDS: VANCOMYCIN 1 GM in IV D5W 250 ML IV SCH (20:35)
[2017-05-31] MEDS: ENOXAPARIN SODIUM 40 MG/0.4 ML DISP.SYRIN SQ SCH (21:18)
[2017-06-01] MEDS: MECLIZINE HCL 25 MG TABLET PO SCH ×3 (04:55→21:12)
[2017-06-01] MEDS: VANCOMYCIN 1 GM in IV D5W 250 ML IV SCH ×3 (04:55→23:50)
--- NOTE | 2017-06-01 06:15 | NUR ---
RN NOTES PATIENT ASLEEP, EASILY AROUSABLE. RESPIRATIONS EVEN. NO SIGNS OF PAIN NOTED. DUE MEDS GIVEN WITH NO ASE NOTED. NEEDS ATTENDED. SAFETY PRECAUTIONS AND COMFORT MEASURES IN PLACE. WILL GIVE REPORT TO DAY SHIFT FOR CONTINUITY OF CARE.
[2017-06-01] MEDS: INSULIN REGULAR, HUMAN 100 UNIT/ML 3 ML VIAL SQ PRN ×4 (06:36→21:23)
[2017-06-01] MEDS: ACETAMINOPHEN 325 MG TABLET PO PRN ×2 (06:38→21:13)
[2017-06-01] MEDS: BLOOD SUGAR DIAGNOSTIC 1 EACH STRIP IN SCH ×4 (06:52→21:12)
--- NOTE | 2017-06-01 07:30 | NUR ---
RN MS NOTES PT IN BED, AWAKE, ALERT AND ORIENTED, NO COMPLAINT OF PAIN, BREATHING PATTERN NORMAL, CALL LIGHT WITHIN REACH, PLAN OF CARE DISCUSSED WITH PT, VERBALIZED UNDERSTANDING.
[2017-06-01 07:48] LABS: CALCIUM, SERUM 8.4 mg/dL (8.5-10.1); CREATININE 0.8 mg/dL (0.6-1.3); POTASSIUM 3.9 mmol/L (3.5-5.1)
[2017-06-01 08:00] VITALS: BP 152/80
[2017-06-01] MEDS: IV NS 0.9% 1,000 ML IV PRN (12:16)
--- NOTE | 2017-06-01 13:00 | NUR ---
RN MS NOTES PT IN BED, RESTING, DENIES PAIN OR ANY DISCOMFORT, RESPIRATIONS NORMAL, IV FLUIDS INFUSING WELL, PICC LINE AT LEFT UPPER ARM INTACT AND PATENT, BLOOD SUGAR CHECK DONE, ASSISTED WITH MEALS.
[2017-06-01 16:00] VITALS: BP 149/84
--- NOTE | 2017-06-01 18:30 | NUR ---
RN MS NOTES PT AWAKE, SITTING IN HIS CHAIR, NOTED WITH GOOD ORAL INTAKE, AMBULATES TO THE BATHROOM WITH A WALKER, DRESSING TO LEFT FOOT WOUND INTACT AND DRY, PM CARE RENDERED, ALL NEEDS ATTENDED.
--- NOTE | 2017-06-01 19:30 | NUR ---
MS RN OPENING NOTES: PATIENT IN BED, AOX4, ON ROOM AIR, BREATHING EVEN AND UNLABORED. APPEARS CALM AND IN NO DISTRESS. DENIES PAIN AT THIS TIME. YONG PICC LINE INTACT AND INFUSING WELL WITH NS RUNNING AT 75 ML/HR. LEFT FOOT WITH CLEAN AND INTACT DRESSING, WRAPPED WITH ELASTIC BANDAGE. ELEVATED ON PILLOWS. PROVIDED FOR COMFORT AND SAFETY. BED IN LOWEST AND LOCKED POSITION, SIDERAILS UPX2. FAMILY AT BEDSIDE. WILL CONT TO MONITOR.
--- NOTE | 2017-06-01 19:40 | NUR ---
RN NOTES: SPOKE TO DELMIS FROM PHARMACY, VANCO TROUGH IS 20. PER PHARM, OK TO GIVE VANCO AT 0000 AM SCHEDULED, FREQ WAS CHANGED FROM Q8 TO Q12 HRS.
[2017-06-01 20:00] VITALS: BP 140/72
[2017-06-01] MEDS: ENOXAPARIN SODIUM 40 MG/0.4 ML DISP.SYRIN SQ SCH (21:15)
--- NOTE | 2017-06-01 21:15 | NUR ---
RN NOTES: PATIENT'S BLOOD SUGAR CHECKED AT 250 MG/DL, ADMINISTERED 4 UNITS REGULAR INSULIN SQ PER SCALE THEN GAVE LIGHT SNACK. WILL CONT TO MONITOR.
[2017-06-02] MEDS: MECLIZINE HCL 25 MG TABLET PO SCH ×3 (05:34→20:46)
[2017-06-02] MEDS: IV NS 0.9% 1,000 ML IV PRN ×2 (05:34→22:56)
[2017-06-02] MEDS: ACETAMINOPHEN 325 MG TABLET PO PRN ×3 (05:39→22:56)
--- NOTE | 2017-06-02 05:40 | NUR ---
RN NOTES: PT COMPLAINED OF HEADACHE. ADMINISTERED TYLENOL 650 MG PO. WILL CONT TO MONITOR.
[2017-06-02] MEDS: BLOOD SUGAR DIAGNOSTIC 1 EACH STRIP IN SCH ×4 (06:31→21:48)
[2017-06-02] MEDS: INSULIN REGULAR, HUMAN 100 UNIT/ML 3 ML VIAL SQ PRN ×4 (06:38→21:50)
--- NOTE | 2017-06-02 07:01 | NUR ---
MS RN CLOSING NOTES: PATIENT IN BED, AOX4, ON ROOM AIR, BREATHING EVEN AND UNLABORED. APPEARS CALM AND IN NO DISTRESS. STATES THAT HEADACHE HAS DECREASED SIGNIFICANTLY. LEFT UPPER ARM PICC LINE INTACT AND INFUSING WELL WITH NS RUNNING AT 75 ML/HR. MORNING BLOOD SUGAR CHECKED AT 206 MG/DL, ADMINISTERED 4 UNITS REGULAR INSULIN PER SCALE. DUE MEDS GIVEN. PROVIDED FOR COMFORT AND SAFETY. L FOOT MAINTAINED OFFLOADED/ ELEVATED ON PILLOW. BED IN LOCKED POSITION, SIDERAILS UPX3, CALL LIGHT WITHIN REACH. WILL ENDORSE TO AM RN FOR RON.
[2017-06-02 08:00] VITALS: BP 160/81
[2017-06-02 08:06] LABS: CALCIUM, SERUM 8.3 mg/dL (8.5-10.1); CREATININE 0.8 mg/dL (0.6-1.3); POTASSIUM 3.9 mmol/L (3.5-5.1)
--- NOTE | 2017-06-02 08:15 | NUR ---
RN NOTES RECEIVED PT. PT IS STABLE AND RESTING IN BED. A/OX4. NO S/S OF DISTRESS OR SOB. PT DENIES PAIN AT THIS MOMENT. PT IS ON RA, O2 SAT WNL. PT IS TO BE NWB OF LLE, BUT OKAY TO BEAR WEIGHT ON HEEL. IV ACCESS LOCATED ON LEFT ARM, PICC LINE RUNNING NS AT 75 ML/HR. PT TO HAVE WOUND DRESSING CHANGE WITH DR. QUINTERO THIS MORNING. D/C PENDING CASE MANAGEMENT HOME HEALTH PLACEMENT. SAFETY MEASURES IN PLACE, CALL LIGHT WITHIN REACH. WILL CONTINUE TO MONITOR.
[2017-06-02] MEDS: VANCOMYCIN 1 GM in IV D5W 250 ML IV SCH ×2 (11:57→23:52)
[2017-06-02 16:00] VITALS: BP 136/65
--- NOTE | 2017-06-02 18:49 | NUR ---
RN NOTES PT AWAKE AND RESTING IN BEDSIDE CHAIR. A/OX3. PT HAS C/O OF MILD PAIN, 2/10. ADDRESSED WITH PRN TYLENOL. NO S/S OF DISTRESS OR SOB. WOUND DRESSING CHANGE PERFORMED BY DR. QUINTERO IN THE AM. PER CASE MANAGEMENT, PT HAS A AGENCY ASSIGNED, AWAITING CONFIRMATION OF IV ABX THAT PT WILL CONTINUE FOR THE FOLLOWING WEEKS. SAFETY MEASURES IN PLACE, CALL LIGHT WITHIN REACH. WILL ENDORSE TO OFFSET PLATE PREPARATION SUPERVISOR FOR RON.
--- NOTE | 2017-06-02 19:30 | NUR ---
MS RN OPENING NOTES: PATIENT IN BED, AOX4, ON ROOM AIR, BREATHING EVEN AND UNLABORED. APPEARS CALM AND IN NO DISTRESS. DENIES PAIN OR HEADACHE AT THIS TIME. YONG PICC LINE INTACT AND INFUSING WELL WITH NS RUNNING AT 75 ML/HR. PROVIDED FOR COMFORT AND SAFETY. LEFT FOOT WITH CLEAN AND INTACT DRESSING. OFFLOADED ON PILLOW. WILL CONT TO MONITOR.
[2017-06-02 20:00] VITALS: BP 140/70
[2017-06-02] MEDS: ENOXAPARIN SODIUM 40 MG/0.4 ML DISP.SYRIN SQ SCH (20:46)
--- NOTE | 2017-06-02 21:02 | NUR ---
RN NOTES: PATIENT REFUSED LOVENOX, SAYING THAT IT HURTS AND THAT HE DOES NOT NEED IT. EXPLAINED RISKS AND BENEFITS, PATIENT STILL REFUSING.
--- NOTE | 2017-06-02 21:52 | NUR ---
RN NOTES: PATIENT'S BLOOD SUGAR CHECKED AT283, ADMINISTERED 6 UNITS REGULAR INSULIN PER SCALE. WILL CONT TO MONITOR.
[2017-06-03] MEDS: MECLIZINE HCL 25 MG TABLET PO SCH ×3 (05:38→21:10)
[2017-06-03] MEDS: BLOOD SUGAR DIAGNOSTIC 1 EACH STRIP IN SCH ×4 (06:34→21:09)
[2017-06-03] MEDS: INSULIN REGULAR, HUMAN 100 UNIT/ML 3 ML VIAL SQ PRN ×4 (06:37→21:14)
--- NOTE | 2017-06-03 07:17 | NUR ---
MS RN CLOSING NOTES: PATIENT IN BED, AOX4, ON ROOM AIR, BREATHING EVEN AND UNLABORED. APPEARS CALM AND IN NO DISTRESS. YONG PICC LINE INTACT AND INFUSING WELL WITH NS RUNNIGN AT 75 ML/HR. BLOOD SUGAR CHECKED AT 210 MG/DL THIS AM, ADMINISTERED 4 UNITS REGULAR INSULIN PER SCALE. DUE MEDS GIVEN. PROVIDED FOR COMFORT AND SAFETY. BED IN LOCKED POSITION, SIDERAILS UP X2. WILL ENDORSE TO AM RN FOR RON.
--- NOTE | 2017-06-03 07:30 | NUR ---
MS/RN Patient received Patient received form overnight associate. Dressing to left foot dry and intact, remains elevated on two pillows. Denies pain or discomfort. FWW placed at bedside as able to ambulate using walker without assist. Call light within reach, will continue to monitor.
[2017-06-03 07:57] LABS: CALCIUM, SERUM 9.2 mg/dL (8.5-10.1); CREATININE 0.8 mg/dL (0.6-1.3); POTASSIUM 4.2 mmol/L (3.5-5.1)
[2017-06-03 08:00] VITALS: BP 135/61
[2017-06-03 08:03] VITALS: BP 135/61
--- NOTE | 2017-06-03 10:43 | NUR ---
MS/RN S/B Dr Wallace Seen by Dr Wallace - awaiting pathology reports and IVAB to be arranged for home. Possible discharge either today or tomorrow. Exit care completed and chart copied ready for discharge.
[2017-06-03] MEDS: VANCOMYCIN 1 GM in IV D5W 250 ML IV SCH ×2 (12:00→23:54)
--- NOTE | 2017-06-03 12:00 | NUR ---
MS/RN Vancomycin Vancomycin level 14, dose to be hung as ordered.
--- NOTE | 2017-06-03 14:24 | NUR ---
MS/RN Rounds Patient sleeping soundly at this time.
[2017-06-03 15:40] VITALS: BP 113/52
[2017-06-03 16:00] VITALS: BP 157/89
--- NOTE | 2017-06-03 18:57 | NUR ---
MS/RN End note No oozing noted through dressing, vital signs remain, no fever. Continues to deny pain. All needs attended, will endorse to college teacher.
--- NOTE | 2017-06-03 19:30 | NUR ---
MS RN OPENING NOTES: PATIENT IN BED, AOX4, ON ROOM AIR, BREATHING EVEN AND UNLABORED. APPEARS CALM AND IN NO DISTRESS, WATCHING TV WITH FAMILY, BUT IS ASKING FOR TYLENOL FOR MILD HEADACHE. YONG PICC LINE INTACT AND INFUSING WELL WITH NS RUNNING AT 75 ML/HR. LEFT FOOT WITH CLEAN AND INTACT DRESSING. ELEVATED ON PILLOW. PROVIDED FOR COMFORT AND SAFETY. BED IN LOWEST AND LOCKED POSITION, SIDERAILS UP X2. CALL LIGHT WITHIN REACH.
[2017-06-03 20:00] VITALS: BP_SYST 128; BP_SYST 140; BP_DIAS 60; BP_DIAS 73
[2017-06-03] MEDS: ACETAMINOPHEN 325 MG TABLET PO PRN (20:01)
[2017-06-03 20:17] VITALS: BP 140/73
[2017-06-03] MEDS: ENOXAPARIN SODIUM 40 MG/0.4 ML DISP.SYRIN SQ SCH (21:14)
[2017-06-03] MEDS: IV NS 0.9% 1,000 ML IV PRN (23:55)
[2017-06-04] MEDS: MECLIZINE HCL 25 MG TABLET PO SCH ×2 (06:07→13:55)
[2017-06-04] MEDS: ACETAMINOPHEN 325 MG TABLET PO PRN (06:09)
--- NOTE | 2017-06-04 06:15 | NUR ---
RN NOTES: BLOOD SUGAR CHECKED AT 232 MG/DL, WILL ADMINISTER 4 UNITS REGULAR INSULIN BEFORE BREAKFAST. ALSO, PATIENT COMPLAINED OF MILD HEADACHE. TYLENOL 650 MG PO GIVEN. WILL CONT TO MONITOR.
[2017-06-04] MEDS: INSULIN REGULAR, HUMAN 100 UNIT/ML 3 ML VIAL SQ PRN ×3 (06:45→17:51)
[2017-06-04] MEDS: BLOOD SUGAR DIAGNOSTIC 1 EACH STRIP IN SCH ×3 (06:46→18:24)
--- NOTE | 2017-06-04 06:59 | NUR ---
MS RN CLOSING NOTES: PATIENT IN BED, AOX4, ON ROOM AIR, BREATHING EVEN AND UNLABORED. YONG PICC LINE INTACT AND PATENT, INFUSING WELL WITH NS RUNNING AT 75 ML/HR. DUE MEDS GIVEN. PROVIDED FOR COMFORT AND SAFETY. LEFT FOOT DRESSING CLEAN AND INTACT, MAINTAINED NWB. DUE MEDS GIVEN, PROVIDED FOR COMFORT AND SAFETY. BED IN LOWEST AND LOCKED POSITION, SIDERAILS UPX3. WILL ENDORSE TO AM RN FOR RON.
[2017-06-04 07:37] LABS: CALCIUM, SERUM 8.8 mg/dL (8.5-10.1); CREATININE 0.9 mg/dL (0.6-1.3); POTASSIUM 4.2 mmol/L (3.5-5.1)
--- NOTE | 2017-06-04 07:50 | NUR ---
RN NOTES RECEIVED PT. PT IS STABLE AND RESTING IN BED. A/OX4, NO S/S OF SOB OR PAIN. PT IS ON RA, O2 SAT WNL. LEFT FOOT DRESSING INTACT. DR. QUINTERO BEDSIDE TO PERFORM DRESSING CHANGE. PROGRESS PHOTO TAKEN OF WOUND AND PLACED IN CHART. IV ACCESS LOCATED ON LEFT ARM, PICC LINE, REMAINS INTACT AND PATENT. SAFETY MEASURES IN PLACE, CALL LIGHT WITHIN REACH. WILL CONTINUE TO MONITOR.
[2017-06-04 08:00] VITALS: BP 163/72
[2017-06-04] MEDS: VANCOMYCIN 1 GM in IV D5W 250 ML IV SCH (12:18)
[2017-06-04 16:00] VITALS: BP 143/80
--- NOTE | 2017-06-04 19:08 | NUR ---
DISCHARGE NOTE PT DISCHARGED HOME WITH HOME HEALTH. PT STABLE, NO S/S OF SOB OR PAIN. PT TO BE FOLLOWED UP WITH BY [facility] FOR IV ABX. ABX PRESCRIBED IS: DAPTOMYCIN 6 MG/KG IV QD, FOR A TOTAL OF 6 WEEKS. PT DC WITH YONG PICC LINE, NO S/S OF INFECTION. PICC LINE REMAINS PATENT. DISCHARGE TEACHING PROVIDED. PT VERBALIZES UNDERSTANDING. DISCHARGE PAPERWORK AND BELONGINGS SHEET SIGNED AND COPIED. EXITCARE PROVIDED. PT PICKED UP BY SON IN PRIVATE CAR.
== END 2017-06-04 19:00 | disposition home health service (06) | DRG 617 ==
LOC: ER 17:38 → MEDSG2 20:14
PROVIDERS: ADMIT Nurse Practitioner Acute Care; ATTEND Nurse Practitioner Acute Care
PROC: 0QBR0ZZ Excision of Left Toe Phalanx, Open Approach (ICD-10-PCS; 2017-05-31)
PROC: 0Y6N0Z9 Detachment at Left Foot, Partial 1st Ray, Open Approach (ICD-10-PCS; principal; 2017-05-31 07:30)
DX: E11.69 Type 2 diabetes mellitus with other specified complication (principal); M86.672 Other chronic osteomyelitis, left ankle and foot; E11.21 Type 2 diabetes mellitus with diabetic nephropathy; E11.65 Type 2 diabetes mellitus with hyperglycemia; E11.42 Type 2 diabetes mellitus with diabetic polyneuropathy; E11.621 Type 2 diabetes mellitus with foot ulcer; L97.529 Non-pressure chronic ulcer of other part of left foot with unspecified severity; D64.9 Anemia, unspecified; E78.5 Hyperlipidemia, unspecified; F17.210 Nicotine dependence, cigarettes, uncomplicated; I10 Essential (primary) hypertension; Z79.84 Long term (current) use of oral hypoglycemic drugs; Z79.899 Other long term (current) drug therapy; H81.10 Benign paroxysmal vertigo, unspecified ear; Z89.421 Acquired absence of other right toe(s)
CPT/HCPCS: 36415; 70450-TC; 71010-TC; 73630-TC; 80048-TC; 80076-TC; 80202-TC; 82962-TC; 83605-TC; 83735-TC; 84100-TC; 85025-TC; 85730-TC; 86850-TC; 87040-TC; 87070-TC; 87075-TC; 87081-TC; 87186-TC; 88305-TC; A4606; A6209; A6402; J1650; J1815; J3370; J3490; J7030; J7040; J7050; J7060; J8597; Z7610

== ENCOUNTER 2017-06-07 08:40 | Outpatient (CLI) | payer MEDICARE, OTHER ==
[~2017-06-07 08:40] MED LIST changes: +PROC5TAB59 PO
== END 2017-06-07 23:59 | disposition home health service (06) ==
LOC: WOU 08:40
PROVIDERS: ATTEND Podiatrist Foot & Ankle Surgery
DX: T87.81 Dehiscence of amputation stump (principal); E11.42 Type 2 diabetes mellitus with diabetic polyneuropathy; Z89.411 Acquired absence of right great toe; M20.5X2 Other deformities of toe(s) (acquired), left foot; E11.69 Type 2 diabetes mellitus with other specified complication; M86.672 Other chronic osteomyelitis, left ankle and foot; F17.200 Nicotine dependence, unspecified, uncomplicated; B95.61 Methicillin susceptible Staphylococcus aureus infection as the cause of diseases classified elsewhere; Z79.4 Long term (current) use of insulin; Z79.82 Long term (current) use of aspirin
CPT/HCPCS: A6402; G0463

== ENCOUNTER 2017-06-14 09:40 | Outpatient (CLI) | payer MEDICARE, OTHER | END 2017-06-14 23:59 | disposition home health service (06) | LOC: WOU 09:40 | PROVIDERS: ATTEND Podiatrist Foot & Ankle Surgery | DX: T87.81 Dehiscence of amputation stump (principal); L97.523 Non-pressure chronic ulcer of other part of left foot with necrosis of muscle; E11.42 Type 2 diabetes mellitus with diabetic polyneuropathy; Z89.412 Acquired absence of left great toe; Z89.422 Acquired absence of other left toe(s); B95.61 Methicillin susceptible Staphylococcus aureus infection as the cause of diseases classified elsewhere; F17.200 Nicotine dependence, unspecified, uncomplicated; Z79.82 Long term (current) use of aspirin; Z79.4 Long term (current) use of insulin | CPT/HCPCS: 11043; A6402 ==

== ENCOUNTER 2017-06-21 09:20 | Outpatient (CLI) | payer MEDICARE, OTHER | END 2017-06-21 23:59 | disposition home health service (06) | LOC: WOU 09:20 | PROVIDERS: ATTEND Podiatrist Foot & Ankle Surgery | DX: T81.4XXA Infection following a procedure, initial encounter (principal); B95.61 Methicillin susceptible Staphylococcus aureus infection as the cause of diseases classified elsewhere; L97.523 Non-pressure chronic ulcer of other part of left foot with necrosis of muscle; E11.621 Type 2 diabetes mellitus with foot ulcer; E11.69 Type 2 diabetes mellitus with other specified complication; M86.672 Other chronic osteomyelitis, left ankle and foot; M20.5X2 Other deformities of toe(s) (acquired), left foot; Z89.411 Acquired absence of right great toe; T81.31XA Disruption of external operation (surgical) wound, not elsewhere classified, initial encounter; S90.32XA Contusion of left foot, initial encounter; X58.XXXA Exposure to other specified factors, initial encounter; Y92.89 Other specified places as the place of occurrence of the external cause; F17.200 Nicotine dependence, unspecified, uncomplicated; Z79.84 Long term (current) use of oral hypoglycemic drugs; Z79.899 Other long term (current) drug therapy | CPT/HCPCS: 11043; A6402 ==

== ENCOUNTER 2017-06-24 18:14 | Emergency (ER) | payer MEDICARE, OTHER ==
[~2017-06-24] VITALS: Ht 162.6 cm; Wt 83.0 kg
--- NOTE | 2017-06-24 18:25 | NUR ---
Pt bb family member for leaking PICC line x today. Pt called Dr. Sin and he was sent here in the ER for PICC line replacement. Pt has no other complaints. VSS NAD rr even and unlabored. skin is warm and non diaphroetic.
--- NOTE | 2017-06-24 18:32 | NUR ---
seen and evaluated by dr faith
--- NOTE | 2017-06-24 18:39 | NUR ---
Called RN supervisor operations Page to page PICC line nurse.
[2017-06-24 19:41] VITALS: BP 121/62
--- NOTE | 2017-06-24 19:42 | NUR ---
pt ok to discharge per dr faith. Patient discharged to home in stable condition. Written and verbal after care instructions given. Patient verbalizes understanding of instruction. pt ambulatory with a steady gait
== END 2017-06-24 19:41 | disposition home or self-care (01) ==
LOC: ER 18:24
DX: E11.621 Type 2 diabetes mellitus with foot ulcer (principal); I10 Essential (primary) hypertension; Z45.2 Encounter for adjustment and management of vascular access device; Z79.4 Long term (current) use of insulin; Z79.82 Long term (current) use of aspirin
CPT/HCPCS: 36569; 99285; A4606; C1751; Z7610

== ENCOUNTER 2017-06-28 09:43 | Outpatient (CLI) | payer MEDICARE, OTHER | END 2017-06-28 23:59 | disposition home health service (06) | LOC: WOU 09:43 | PROVIDERS: ATTEND Podiatrist Foot & Ankle Surgery | DX: E11.621 Type 2 diabetes mellitus with foot ulcer (principal); L97.523 Non-pressure chronic ulcer of other part of left foot with necrosis of muscle; L97.522 Non-pressure chronic ulcer of other part of left foot with fat layer exposed; E11.69 Type 2 diabetes mellitus with other specified complication; M86.672 Other chronic osteomyelitis, left ankle and foot; M20.5X2 Other deformities of toe(s) (acquired), left foot; Z89.411 Acquired absence of right great toe; T81.31XD Disruption of external operation (surgical) wound, not elsewhere classified, subsequent encounter; F17.210 Nicotine dependence, cigarettes, uncomplicated; B95.61 Methicillin susceptible Staphylococcus aureus infection as the cause of diseases classified elsewhere; Z79.899 Other long term (current) drug therapy; Z79.4 Long term (current) use of insulin; Z79.82 Long term (current) use of aspirin | CPT/HCPCS: 11042; A6402 ==

== ENCOUNTER → 2017-07-05 | Outpatient (CLI) | payer MEDICARE, OTHER | LOC: WOU 09:31 | PROVIDERS: ATTEND Podiatrist Foot & Ankle Surgery | DX: E11.621 Type 2 diabetes mellitus with foot ulcer (principal); L97.523 Non-pressure chronic ulcer of other part of left foot with necrosis of muscle; E11.69 Type 2 diabetes mellitus with other specified complication; M86.672 Other chronic osteomyelitis, left ankle and foot; M20.5X2 Other deformities of toe(s) (acquired), left foot; T81.31XD Disruption of external operation (surgical) wound, not elsewhere classified, subsequent encounter; F17.210 Nicotine dependence, cigarettes, uncomplicated; B95.61 Methicillin susceptible Staphylococcus aureus infection as the cause of diseases classified elsewhere; Z79.899 Other long term (current) drug therapy; Z79.4 Long term (current) use of insulin; Z79.82 Long term (current) use of aspirin; L89.620 Pressure ulcer of left heel, unstageable; Z89.411 Acquired absence of right great toe | CPT/HCPCS: 11042; A6402 ==

== ENCOUNTER 2017-07-16 08:53 | Outpatient (CLI) | payer MEDICARE, OTHER | END 2017-07-16 23:59 | disposition home health service (06) | LOC: WOU 08:53 | PROVIDERS: ATTEND Podiatrist Foot & Ankle Surgery | DX: E11.621 Type 2 diabetes mellitus with foot ulcer (principal); L97.522 Non-pressure chronic ulcer of other part of left foot with fat layer exposed; L89.899 Pressure ulcer of other site, unspecified stage; E11.42 Type 2 diabetes mellitus with diabetic polyneuropathy; Z89.411 Acquired absence of right great toe; M20.5X2 Other deformities of toe(s) (acquired), left foot; E11.69 Type 2 diabetes mellitus with other specified complication; M86.672 Other chronic osteomyelitis, left ankle and foot; F17.200 Nicotine dependence, unspecified, uncomplicated; T81.31XD Disruption of external operation (surgical) wound, not elsewhere classified, subsequent encounter; Z79.4 Long term (current) use of insulin; Z79.899 Other long term (current) drug therapy | CPT/HCPCS: 11042; A6402 ==

== ENCOUNTER 2017-07-23 09:40 | Outpatient (CLI) | payer MEDICARE, OTHER ==
[2017-07-24] MEDS ORDERED: CLINDAMYCIN 900 MG/6 ML VIAL ONE (19:46)
[2017-07-24] MEDS ORDERED: VANCOMYCIN 1 GM VIAL ONE (19:46)
[2017-07-24] MEDS ORDERED: GENTAMICIN 80 MG/2 ML VIAL ONE (20:19)
== END 2017-07-23 23:59 | disposition home or self-care (01) ==
LOC: WOU 09:40
PROVIDERS: ATTEND Podiatrist Foot & Ankle Surgery
DX: E11.69 Type 2 diabetes mellitus with other specified complication (principal); M86.672 Other chronic osteomyelitis, left ankle and foot; E11.42 Type 2 diabetes mellitus with diabetic polyneuropathy; Z89.411 Acquired absence of right great toe; M20.5X2 Other deformities of toe(s) (acquired), left foot
CPT/HCPCS: A6402; G0463; J1580; J3370; J3490

== ENCOUNTER 2017-08-06 09:10 | Outpatient (CLI) | payer MEDICARE, OTHER | END 2017-08-06 23:59 | disposition home health service (06) | LOC: WOU 09:10 | PROVIDERS: ATTEND Podiatrist Foot & Ankle Surgery | DX: Z09 Encounter for follow-up examination after completed treatment for conditions other than malignant neoplasm (principal); Z89.411 Acquired absence of right great toe; M20.5X2 Other deformities of toe(s) (acquired), left foot; E11.42 Type 2 diabetes mellitus with diabetic polyneuropathy; E11.69 Type 2 diabetes mellitus with other specified complication; M86.672 Other chronic osteomyelitis, left ankle and foot | CPT/HCPCS: G0463 ==

== ENCOUNTER 2017-09-03 08:59 | Outpatient (CLI) | payer MEDICARE, OTHER ==
[~2017-09-03 08:59] MED LIST changes: +ASPI-1152 PO; -ASPI-991 PO; -PIOG15TA3 PO; +PIOG15TA8 PO
== END 2017-09-03 23:59 | disposition home or self-care (01) ==
LOC: WOU 08:59
PROVIDERS: ATTEND Podiatrist Foot & Ankle Surgery
DX: Z09 Encounter for follow-up examination after completed treatment for conditions other than malignant neoplasm (principal); E11.42 Type 2 diabetes mellitus with diabetic polyneuropathy; Z89.411 Acquired absence of right great toe; M20.5X2 Other deformities of toe(s) (acquired), left foot; Z86.31 Personal history of diabetic foot ulcer
CPT/HCPCS: G0463